=== PATIENT | female | born 2000 | race Caucasian/White ===

== ENCOUNTER 2023-12-14 | Outpatient (REF) | payer MEDICAID, SELFPAY ==
[2023-12-18 23:04] LABS: C. trachomatis RNA TMA NOT DETECTED (NOT DETECTED); N. gonorrhoeae RNA TMA NOT DETECTED (NOT DETECTED); Trichomonas (NAAT) NOT DETECTED (NOT DETECTED)
== END 2023-12-14 00:01 | disposition home or self-care (01) ==
LOC: HO.LNP
PROVIDERS: Visit Provider Advanced Practice Midwife
DX: Z12.4 Encounter for screening for malignant neoplasm of cervix (principal); Z11.3 Encounter for screening for infections with a predominantly sexual mode of transmission
CPT/HCPCS: 87491; 87591; 87661; 88175

== ENCOUNTER 2023-12-14 11:42 | Outpatient (REF) | payer MEDICAID, SELFPAY ==
[2023-12-14 14:12] LABS: Estimated Average Glucose 103 mg/dL; Hemoglobin A1c % 5.2 % (<6.0)
[2023-12-14 14:48] LABS: TSH reflex Free T4 1.38 uIU/mL (0.32-4.0)
[2023-12-15 09:04] LABS: Prolactin 6.5 ng/mL
[2023-12-21 14:09] LABS: Testosterone, Total 53 ng/dL (2-45)
== END 2023-12-14 11:43 | disposition home or self-care (01) ==
LOC: HO.HHCL 11:42
PROVIDERS: Visit Provider Advanced Practice Midwife
DX: N92.6 Irregular menstruation, unspecified (principal); Z83.3 Family history of diabetes mellitus; Z13.1 Encounter for screening for diabetes mellitus
CPT/HCPCS: 36415; 83036; 84146; 84403; 84443

== ENCOUNTER 2024-01-03 10:51 | Outpatient (REF) | payer MEDICAID, SELFPAY ==
--- NOTE | ~2024-01-03 | US_ITS ---
EXAMINATION: US PELVIS CLINICAL INFORMATION: Irregular menses; the last menstrual period was towards the end of 08/2023. COMPARISON: None available. TECHNIQUE: Ultrasound of the pelvis is performed using both transabdominal and transvaginal transducers along with Doppler. Transvaginal imaging is performed due to inadequate visualization transabdominally. FINDINGS: Uterus: The uterus is retroverted and retroflexed. The uterus measures 9.1 x 3.0 x 4.7 cm. The double wall endometrial thickness is 4 mm. Nabothian cysts are seen within the cervix. The uterus is smooth in contour and has normal myometrial echogenicity. No visible fibroid. Adnexa: Both ovaries are visualized. There is normal color flow to the adnexa. There is no ovarian torsion. There is no pelvic ascites or fluid collection. Right ovary measures 3.5 x 2.0 x 1.7 cm, volume 6.2 mL. Left ovary measures 3.5 x 2.2 x 1.6 cm, volume 6.5 mL. US/US pelvic and transvaginal IMPRESSION: Nabothian cysts are seen within the cervix. The examination is otherwise unremarkable.
== END 2024-01-03 10:52 | disposition home or self-care (01) ==
LOC: HO.US 10:51
PROVIDERS: Visit Provider Advanced Practice Midwife
DX: N92.6 Irregular menstruation, unspecified (principal)
CPT/HCPCS: 76830; 76856

== ENCOUNTER 2024-04-22 10:39 | Outpatient (REF) | payer MEDICAID, SELFPAY ==
[2024-04-22 13:12] LABS: Cholesterol 160 mg/dL (<200); HDL Cholesterol 42 mg/dL (>40); LDL Cholesterol Calculated 93 mg/dL (<100); Triglycerides 127 mg/dL (<150)
[2024-04-22 13:16] LABS: HCG Quantitative < 2 mIU/mL
== END 2024-04-22 10:40 | disposition home or self-care (01) ==
LOC: HO.HHCL 10:39
PROVIDERS: Visit Provider Advanced Practice Midwife
DX: Z13.220 Encounter for screening for lipoid disorders (principal); N92.6 Irregular menstruation, unspecified
CPT/HCPCS: 36415; 80061; 84702

== ENCOUNTER 2024-05-21 11:43 | Outpatient (REF) | payer MEDICAID, SELFPAY ==
[2024-05-21 15:12] LABS: HCG Quantitative < 2 mIU/mL
== END 2024-05-21 11:44 | disposition home or self-care (01) ==
LOC: HO.HHCL 11:43
PROVIDERS: Visit Provider Advanced Practice Midwife
DX: N92.6 Irregular menstruation, unspecified (principal)
CPT/HCPCS: 36415; 84702

== ENCOUNTER 2024-07-04 11:08 | Outpatient (REF) | payer MEDICAID, SELFPAY ==
[2024-07-04 13:08] LABS: MANUAL DIFF FLAG NO
[2024-07-04 13:15] LABS: Basophils Percent Auto 0.4 % (0-2); Eosinophils Absolute Auto 0.1 X10*3/uL (0.0-0.4); Eosinophils Percent Auto 0.9 % (0-4); Hematocrit 39.6 % (37.0-47.0); Hemoglobin 13.1 g/dl (12.0-16.0); Imm Gran Abs Auto 0.04 X10*3/uL (0.00-0.03); Imm Gran Pct Auto 0.4 % (0.0-0.4); Lymphocytes Absolute Auto 1.8 X10*3/uL (1.2-4.9); Lymphocytes Percent Auto 18.3 % (20-40); Mean Corpuscular HGB Conc 33.1 g/dl (31.0-35.0); Mean Corpuscular Hemoglobin 28.8 pg (27.0-33.0); Mean Platelet Volume 10.1 fL (9.4-12.3); Monocytes Absolute Auto 0.5 X10*3/uL (0.1-1.2); Monocytes Percent Auto 5.2 % (2-11); Neutrophils Absolute Auto 7.2 x10*3/uL (2.0-8.3); Neutrophils Percent Auto 74.8 % (45-73); Platelet Count 370 X10*3/uL (160-400); Red Blood Count 4.55 X10*6/uL (4.20-5.50); Red Cell Distribution Width 12.3 % (11.0-16.0); White Blood Count 9.6 X10*3/uL (4.8-10.8)
[2024-07-04 13:23] LABS: Estimated Average Glucose 103 mg/dL; Hemoglobin A1C 115.4536 umol/L; Hemoglobin A1c % 5.2 % (<6.0); Total Hemoglobin (HGBA1C) 3431.5205 umol/L
[2024-07-04 13:42] LABS: Alanine Aminotransferase 54 U/L (0-31); Albumin Level 4.3 g/dL (3.5-5.0); Alkaline Phosphatase 79 U/L (39-117); Anion Gap 9 (12-20); Aspartate Amino Transferase 32 U/L (5-31); Bilirubin Total 0.2 mg/dL (0.0-1.0); Blood Urea Nitrogen 11 mg/dL (9-16); Calcium 9.2 mg/dL (8.4-10.2); Carbon Dioxide 27 mmol/L (22-29); Chloride 109 mmol/L (96-108); Estimated Glomerular Filt Rate > 60; Glucose Random 97 mg/dL (60-115); Potassium 4.3 mmol/L (3.3-5.1); Sodium 141 mmol/L (135-145); Total Protein 8.4 g/dL (6.5-8.0)
[2024-07-04 13:47] LABS: TSH reflex Free T4 1.59 uIU/mL (0.32-4.0); Vitamin D 25-OH Total 24.1 ng/mL (>30)
[2024-07-05 04:27] LABS: HIV AB/AG Nonreactive (Nonreactive); HIV Num 1 0.04 S/CO (0.00-0.99); ~HepC Num1 0.11 S/CO (0.00-0.79); ~Hepatitis C Antibody Nonreactive (Nonreactive)
== END 2024-07-04 11:09 | disposition home or self-care (01) ==
LOC: HO.HHCL 11:08
PROVIDERS: Visit Provider Internal Medicine
DX: E66.813 Obesity, class 3 (principal); Z68.43 Body mass index [BMI] 50.0-59.9, adult; E66.01 Morbid (severe) obesity due to excess calories
CPT/HCPCS: 36415; 80053; 82306; 83036; 84443; 85025; 86803; 87389

== ENCOUNTER 2024-07-11 11:59 | Outpatient (REF) | payer MEDICAID, SELFPAY ==
[2024-07-11 14:16] LABS: HBc Num1 0.13 S/CO (0.00-0.79); HBsAGNum1 0.38 S/CO (0.00-0.99); Hepatitis B Core Antibody Nonreactive (Nonreactive); Hepatitis B Surface Antigen Negative (Negative); ~HepC Num1 0.11 S/CO (0.00-0.79); ~Hepatitis A Antibody IgM Nonreactive (Nonreactive); ~Hepatitis B Surface Antibody NONREACTIVE (Nonreactive); ~Hepatitis C Antibody Nonreactive (Nonreactive)
--- OUTSIDE RECORDS SUMMARY | 2024-07-11 14:25 | XMS_ITS | Encounter Summary ---
Author Organization [employer] Address [address] [place] [address] Care Team Providers Care Lawn Mower Mechanic Name Role Phone Karla Lincoln MD Primary Care Provide r Reason for Visit * Reason Onset Date Comments Durable Medical Equipment 07/10/2024 Encounter Details Date Type Department Care Team (Late st Contact Info) Description 07/10/2024 Telephone [facility] [address] [place], [place] [id number] Kyle Stockton MA Durable Medical Equipment Social History Tobacco Use Types Packs/Day Years Used Date Smoking Tobacco: Never Passive Smoke Exposure: Never Smokeless Tobacco: Never Alcohol Use Standard Drinks/Week Comments Never 0 (1 standard drink = 0.6 oz pur e alcohol) Depression Answer Date Recorded Patient Health Questionnaire-9 Score 6 07/04/2024 Patient Health Questionnaire-9 Score 6 07/04/2024 Last PHQ-9: Questionnaire Data Not on file 0 07/04/2024 Housing Stability Answer Date Recorded What is your housing situation today? I have isidrotyrell lemus 07/04/[address] you li ve. Do you have problems with any of the following? None of the above 07/04/2024 Food Insecurity Answer Date Recorded Within the past 12 months, y ou worried that your food would run out before you got money to buy more: Never True 07/04/2024 Within the past 12 months,th e food you bought just didn't last and you didn't have enough money to get more: Never True Transportation Answer Date Recorded In the past 12 months, has l ack of transportation kept you from medical appts, meetings, work or from getting things needed for daily living? No 07/04/2024 Utilities Answer Date Recorded In the past 12 months, has t he electric, gas, oil or water company threatened to shut off services in your home? No 07/04/2024 Depression Answer Date Recorded Patient Health Questionnaire-2 Score 3 07/04/2024 Internet Access Answer Date Recorded Internet Access Q1 Yes 07/04/2024 Internet Access Q2 Not on file 07/04/2024 Comments No Sex and Gender Information Value Date Recorded Sex Assigned at Female 12/07/2023 11:01 AM EDT Legal Sex Female 12:18 PM EDT Gender Identity Female 12/07/2023 11:01 AM EDT Sexual Orientation Don't know 12/07/2023 11 :01 AM EDT documented as of this encounter Miscellaneous Notes * Telephone Encounter - Kyle Stockton MA - 07/10/2024 3:27 PM EST DME- Generated prescription for nebulizer 07/10/2024 , waiting for provider to sign. documented in this encounter Plan of Treatment Not on file documented as of this encounter Visit Diagnoses Not on filedocumented in this encounter Additional Health Concerns Assessment Noted Time PHQ-9 Depression Total Score: 6 07/04/19 10:15 AM EST documented as of this encounter Care Teams Lawn Mower Mechanic Relationship Specialty Start Date End Date Karla Lincoln MD [address] [place] [address] PCP - General Internal Medicine 07/04/24 documented as of this encounter
--- OUTSIDE RECORDS SUMMARY | 2024-07-11 14:25 | XMS_ITS | Encounter Summary ---
Author Organization [employer] Address [address] [place] [address] Care Team Providers Care Music Theory Teacher Name Role Phone Unavailable Primary Care Provider Unavailabl e Reason for Visit * Reason Comments Pre-visit Planning (Unable to reach for PVP screening or LVM) Encounter Details Date Type Department Care Team ([facility] st Contact Info) Description 06/25/2024 Patient Outreach [facility] [address] [place] [address] Karla Lincoln MD [address] [place] [address] Pre-visit Planning ((Unable to reach for PVP screening or LVM)) Social History Tobacco Use Types Packs/Day Years Used Date Smoking Tobacco: Never Smokeless Tobacco: Never Alcohol Use Standard Drinks/Week Comments Never 0 (1 standard drink = 0.6 oz pur e alcohol) Comments No Sex and Gender Information Value Date Recorded Sex Assigned at Female 12/07/2023 11:01 AM EDT Legal Sex Female 12:18 PM EDT Gender Identity Female 12/07/2023 11:01 AM EDT Sexual Orientation Don't know 12/07/2023 11 :01 AM EDT documented as of this encounter Progress Notes * Amie Campbell - 06/25/2024 8:56 AM EST CC Amie placed outbound call to patient to complete pre-visit planning. No answer at this time. Patient name and were not confirmed. CC unable to leave a voice message. documented in this encounter Plan of Treatment Not on file documented as of this encounter Visit Diagnoses Not on filedocumented in this encounter
--- OUTSIDE RECORDS SUMMARY | 2024-07-11 14:25 | XMS_ITS | Encounter Summary ---
Author Organization [employer] Address [address] [place] [address] Care Team Providers Care Salesperson Furniture Name Role Phone Karla Lincoln MD Primary Care Provide r Encounter Details Date Type Department Care Team (Late st Contact Info) Description 01/08/2024 Orders Only [facility] [address] [place] [address] Tereza Bowen CNM [address] [place] [address] Social History Tobacco Use Types Packs/Day Years Used Date Smoking Tobacco: Never Smokeless Tobacco: Never Comments No Sex and Gender Information Value Date Recorded Sex Assigned at Female 12/07/2023 11:01 AM EDT Legal Sex Female 12:18 PM EDT Gender Identity Female 12/07/2023 11:01 AM EDT Sexual Orientation Don't know 12/07/2023 11 :01 AM EDT documented as of this encounter Plan of Treatment Not on file documented as of this encounter Visit Diagnoses Not on filedocumented in this encounter Care Teams Salesperson Furniture Relationship Specialty Start Date End Date Karla Lincoln MD [address] [place] [address] PCP - General Internal Medicine 07/04/24 documented as of this encounter
--- OUTSIDE RECORDS SUMMARY | 2024-07-11 14:25 | XMS_ITS | Encounter Summary ---
Author Organization [employer] Address [address] [place] [address] Care Team Providers Care Vending Service Technician Name Role Phone Karla Lincoln MD Primary Care Provide r Reason for Visit * Reason Onset Date Comments Results 07/04/2024 Encounter Details Date Type Department Care Team (Late st Contact Info) Description 07/04/2024 Telephone [facility] [address] [place] [address] Robyn Rosario RN [address] [place] [address] Results Social History Tobacco Use Types Packs/Day Years [...] is your housing situation today? I have isidro lemus 07/04/[address] you [...] encounter Miscellaneous Notes * Telephone Encounter - Robyn Rosario RN - 07/04/2024 4:21 PM EST TC placed to patient via [employer] (Fili #[id number]) in regards to below message. Patient advised of below message and did not have further questions. Patient advised she will receive another call once results are received for the hepatitis panel. Patient to f/u PRN. ----- Message from Karla Mckinney MD sent at 07/04/2024 4:09 PM EST ----- Please let patient know I reviewed her labs her LFTS are slightly elevated I will order hepatitis panel but is likely fatty liver, I will continue to monitor, her vitamin d is a little low she can take over the counter vitamin d 1000U this winter and then she can discontinue when spring comes thankyou documented in this encounter Plan of Treatment Not on file documented as of this encounter Visit Diagnoses Not on filedocumented in this encounter Additional Health Concerns Assessment Noted Time PHQ-9 Depression Total Score: 6 07/04/19 25 10:15 AM EST documented as of this encounter Care Teams Vending Service Technician Relationship Specialty Start Date End Date Karla Lincoln MD [address] [place] [address] PCP - General Internal Medicine 07/04/24 documented as of this encounter
--- OUTSIDE RECORDS SUMMARY | 2024-07-11 14:25 | XMS_ITS | Encounter Summary ---
Author Organization [employer] Address [address] [place] [address] Care Team Providers Care Diet Therapist Name Role Phone Karla Lincoln MD Primary Care Provide r Encounter Details Date Type Department Care Team (Late st Contact Info) Description 07/04/2024 Orders Only [facility] [address] [place] [address] Karla Lincoln MD [address] [place] [address] Elevated LFTs (Primary Dx) Social History Tobacco Use Types Packs/Day Years [...] on file documented as of this encounter Procedures Procedure Name Priority Date/Time Associated Diagnosis Comments HEPATITIS PANEL, GENERAL Routine 07/11/2024 12:00 PM EST Elevated LFTs documented in this encounter Results * Hepatitis A,B,C Profile (07/11/2024 12:00 PM EST) Hepatitis A IgM Nonreactive Nonreactive [facility] Comment:IgM antibodies to [place] V not detected; does not exclude earlyacute or recovered HAV infection. ~Hepatitis B Surface Antibody NONREACTIVE Nonreactive [facility] Comment:Nonreactive: < 8.00 mIU/mL Hepatitis B Core Antibody Nonreactive Nonreactive [facility] Hepatitis C Antibody Nonreactive Nonreactive [facility] Comment:Antibodies to HCV no t detected; does not exclude early acuteHCV infection. Hepatitis B Surface Ag Negative Negative [facility] Blood Venous blood specimen / Unknown 07/11/2024 12:00 PM EST 07/11/2024 1:22 PM EST us Karla Mckinney MD LAB BLOOD ORDERABLES Final Result [facility] [address] [place] [address] [phone] documented in this encounter Visit Diagnoses Diagnosis Elevated LFTs- Primary Other abnormal blood chemistry documented in this encounter Additional Health Concerns Assessment Noted Time PHQ-9 Depression Total Score: 6 07/04/19 25 10:15 AM EST documented as of this encounter Care Teams Diet Therapist Relationship Specialty Start Date End Date Karla Lincoln MD [address] [place] [address] PCP - General Internal Medicine 07/04/24 documented as of this encounter
--- OUTSIDE RECORDS SUMMARY | 2024-07-11 14:25 | XMS_ITS | Encounter Summary ---
Author Organization [employer] Address [address] [facility] 7t [place] [address] Care Team Providers Care Milking System Installer Name Role Phone Karla Lincoln MD Primary Care Provide r Reason for Referral * Consultation (Routine) - Closed Specialty Diagnoses / Procedures Referred By Michele cook Referred To Contact Bariatrics Diagnoses Class 3 severe obesity due to excess calories without serious comorbidity with body mass index (BMI) of 50.0 to 59.9 in adult ([facility]) Karla Lincoln MD [address] [place] [phone] Phone: tel: fax: Referral ID Status Reason Start Date Expiration Date V isits Requested Visits Authorized [id number] Closed Specialty Services Required 07/04/2024 07/04/2025 1 1 Encounter Details Date Type Department Care Team (Late st Contact Info) Description 07/04/2024 10:15 AM EST Office Visit [facility] MEDICINE [address] [place] [phone] Karla Lincoln MD [address] [place] [phone] Mild intermittent asthma, unspecified whether complicated (Primary Dx); Dietary counseling; Exercise counseling; Class 3 severe obesity due to excess calories without serious comorbidity with body mass index (BMI) of 50.0 to 59.9 in adult ([facility]); Screening examination for STI; Encounter for immunization Social History Tobacco Use Types Packs/Day Years Used Date Smoking Tobacco: Never Passive Smoke Exposure: Never Smokeless Tobacco: Never Tobacco Cessation:Counseling Given: Not Answered Alcohol Use Standard Drinks/Week Comments Never 0 [...] AM EDT documented as of this encounter Last Filed Vital Signs Vital Sign Reading Time Taken Comments Blood Pressure 110/86 07/04/2024 10:13 AM EST Pulse 98 07/04/2024 10:13 AM EST Temperature 36.7 ??C (98.1 ??F) 07/04/2024 10:[address] Respiratory Rate 17 07/04/2024 10:13 AM EST Oxygen Saturation - - Inhaled Oxygen Concentration - - Weight 132 kg (291 lb 4 oz) 07/04/2024 10:13 AM EST Height 154.9 cm (5' 1 ) 07/04/2024 10:13 AM EST Body Mass Index 55.03 07/04/2024 10:13 AM EST documented in this encounter Progress Notes * Karla Mckinney MD - 07/04/2024 10:15 AM EST SUBJECTIVE: Saniya De Souza is a 24 y.o. year old female who presents for New patient . Concerns for today's visit: Occupation:at home Lives with:with partner and father in law - EtOH denies - smoking cigarettes denies - recreational drug use denies Diet:regular Exercise:sedentary LMP: irregular 05/07/24 Surgeries/Hospitalizations:none PMHx:asthma FMHx:Mother HTN, her brother Chron's disease Immunizations: Reviewed flu vaccine today Acute Concerns: Patient reports her asthma is intermittent but when she has exacerbations sometimes its really bad and inhaler is not enough, she tells me nebulization does help in that case Social History Social History Narrative Not on file Patient Active Problem List Diagnosis Mild intermittent asthma Class 3 severe obesity due to excess calories without serious comorbidity with body mass index (BMI) of 50.0 to 59.9 in adult ([facility]) Family History Problem Relation Name Age of Onset Diabetes Maternal Grandmother Diabetes Paternal Grandmother Review of Systems Constitutional: Negative. HENT: Negative. Respiratory: Negative. Cardiovascular: Negative. OBJECTIVE: Vitals: 07/04/24 1013 BP: 110/86 BP Location: Left arm Patient Position: Sitting BP Cuff Size: Large adult Pulse: 98 Resp: 17 Temp: 98.1 ??F (36.7 ??C) TempSrc: Oral Weight: 291 lb 4 oz (132 kg) Height: 5' 1 (1.549 m) Physical Exam Constitutional: Appearance: Normal appearance. Cardiovascular: Rate and Rhythm: Normal rate and regular rhythm. Pulmonary: Effort: Pulmonary effort is normal. Breath sounds: Normal breath sounds. Abdominal: General: Abdomen is flat. Palpations: Abdomen is soft. Musculoskeletal: Right lower leg: No edema. Left lower leg: No edema. Neurological: Mental Status: She is alert. Follow Up: Follow up in about 6 months (around 01/01/2025) for asthma/weight . Current Outpatient Medications on File Prior to Visit Medication Sig Dispense Refill Vit-Fe Fumarate-FA ( Plus) 27-1 MG tablet One tablet by mouth daily 30 tablet 11 medroxyPROGESTERone (Provera) 5 MG tablet Take 1 tablet (5 mg) by mouth Once per day for 7 days. Report if no menses by 7th day after last pill 7 tablet 0 No current facility-administered medications on file prior to visit. Problem List Items Addressed This Visit Mild intermittent asthma - Primary Patient educated to avoid asthma triggers I will prescribe for patient nebulizer Relevant Medications albuterol 108 (90 Base) MCG/ACT inhaler Class 3 severe obesity due to excess calories without serious comorbidity with body mass index (BMI) of 50.0 to 59.9 in adult ([facility]) Today extensive discussion was done about life style modifications I advise healthy diet (low calorie) and cardiovascular exercise Patient will be refer to bariatric specialist Relevant Orders Referral to Bariatric Surgery CBC auto differential Comprehensive Metabolic Panel Hemoglobin A1c HIV-1/2 Antigen and Antibodies, Fourth Generation, with Reflexes Hepatitis C Antibody with Reflex to HCV, RNA, Quantitative, Real-Time PCR Vitamin D, 25-Hydroxy, Total, Immunoassay TSH with Reflex to Free T4 Other Visit Diagnoses Dietary counseling Exercise counseling Screening examination for STI Relevant Orders Chlamydia/N. Gonorrhoeae RNA, TMA, Urogenitial Encounter for immunization Relevant Orders FLU VACCINE TRIVALENT (Fluarix) 6 mo + (Completed) documented in this encounter Miscellaneous Notes * Assessment & Plan Note - Karla Mckinney MD - 07/04/2024 1:02 PM EST Associated Problem(s): Class 3 severe obesity due to excess calories without serious comorbidity with body mass index (BMI) of 50.0 to 59.9 in adult ([facility]) Today extensive discussion was done about life style modifications I advise healthy diet (low calorie) and cardiovascular exercise Patient will be refer to bariatric specialist * Assessment & Plan Note - Karla Mckinney MD - 07/04/2024 1:01 PM EST Associated Problem(s): Mild intermittent asthma Patient educated to avoid asthma triggers I will prescribe for patient nebulizer documented in this encounter Plan of Treatment Scheduled Orders Name Type Priority Associated Diagnoses Orde r Schedule Chlamydia/N. Gonorrhoeae RNA, TMA, Urogenitial Microbiology Routine Screening examination for STI Ordered: 07/04/2024 Scheduled Referrals Name Type Priority Associated Diagnoses Orde r Schedule Referral to Bariatric Surgery Outpatient Referral Routine Class 3 severe obesity due to excess calories without serious comorbidity with body mass index (BMI) of 50.0 to 59.9 in adult ([facility]) Expected: 07/04/2024 (Approximate), Expires: 07/04/2025 documented as of this encounter Procedures Procedure Name Priority Date/Time Associated Diagnosis Comments VITAMIN D,25-OH,TOTAL,IA Routine 07/04/2024 11:11 AM EST Class 3 severe obesity due to excess calories without serious comorbidity with body mass index (BMI) of 50.0 to 59.9 in adult ([facility]) TSH W/REFLEX TO FT4 Routine 07/04/2024 1 1:11 AM EST Class 3 severe obesity due to excess calories without serious comorbidity with body mass index (BMI) of 50.0 to 59.9 in adult ([facility]) CBC WITH AUTO DIFFERENTIAL Routine 07/04/2024 11:11 AM EST Class 3 severe obesity due to excess calories without serious comorbidity with body mass index (BMI) of 50.0 to 59.9 in adult ([facility]) HEPATITIS C AB W/REFL TO HCV RNA, QN, PCR Routine 07/04/2024 11:11 AM EST Class 3 severe obesity due to excess calories without serious comorbidity with body mass index (BMI) of 50.0 to 59.9 in adult ([facility]) HIV 1/2 ANTIGEN/ANTIBODY, FOURTH GENERATION W/RFL Routine 07/04/2024 11:11 AM EST Class 3 severe obesity due to excess calories without serious comorbidity with body mass index (BMI) of 50.0 to 59.9 in adult ([facility]) HEMOGLOBIN A1C Routine 07/04/2024 11:11 AM EST Class 3 severe obesity due to excess calories without serious comorbidity with body mass index (BMI) of 50.0 to 59.9 in adult ([facility]) COMPREHENSIVE METABOLIC PANEL Routine 07/04/2024 11:11 AM EST Class 3 severe obesity due to excess calories without serious comorbidity with body mass index (BMI) of 50.0 to 59.9 in adult ([facility]) documented in this encounter Results * TSH with Reflex to Free T4 (07/04/2024 11:11 AM EST) TSH reflex Free T4 1.59 0.32 - 4.0 uIU/mL [facility] Blood Venous blood specimen / Unknown 07/04/2024 11:11 AM EST 07/04/2024 1:03 PM EST us Karla Mckinney MD LAB BLOOD ORDERABLES Final Result [facility] [address] [place] [phone] * (ABNORMAL) Vitamin D, 25-Hydroxy, Total, Immunoassay (07/04/2024 11:11 AM EST) Vitamin D 25-OH Total 24.1(L) >30 ng/mL [facility] Comment:Health Based Referen ce Values*< 20 ng/mL Weuyydskc62-69 ng/mL Insufficient> 30 ng/mL Sufficient*Jennifer WOODARD. N Engl J Med. 2007;357:266-280Care must be taken in interpreting Vitamin D results fromdifferent laboratories and methodologies. Published datademonstrated that results from patients undergoinghemodialysis may show a negative bias when tested withvarious automated 25-OH vitamin D assays when compared toLC-MS/MS.When testing samples from patients whose predominant form ofVitamin D is Vitamin D2, such as patients receiving VitaminD2 supplementation, results that are subtherapeutic shouldbe confirmed with another method such as LC-MS/MS. Blood Venous blood specimen / Unknown 07/04/2024 11:11 AM EST 07/04/2024 1:03 PM EST Karla Mckinney MD LAB BLOOD ORDERABLES Final Result Performing Organization Address [facility] Co de Phone Number [facility] [address] [place] [phone] * Hepatitis C Antibody with Reflex to HCV, RNA, Quantitative, Real-Time PCR (07/04/2024 11:11 AM EST) Pathologist [facility] Hepatitis C Antibody Nonreactive Nonreactive [facility] Comment:Antibodies to HCV no t detected; does not exclude early acuteHCV infection. Blood Venous blood specimen / Unknown 07/04/2024 11:11 AM EST 07/04/2024 1:03 PM EST Karla Mckinney MD LAB BLOOD ORDERABLES Final Result Performing Organization Address [facility] de Phone Number [facility] [address] [place] [phone] * HIV-1/2 Antigen and Antibodies, Fourth Generation, with Reflexes (07/04/2024 11:11 AM EST) Pathologist [facility] HIV AB/AG Nonreactive Nonreactive [facility] Comment:HIV-1 p24 Ag and/or HIV-1/HIV-2 Ab not detected.A test result that is nonreactive does not exclude thepossibility of exposure to or infection with HIV-1 and/orHIV-2. Nonreactive results in this assay for individualswith prior exposure to HIV-1 and/or HIV-2 may be due toantigen and antibody levels that are below the limit ofdetection of this assay.The [employer] HIV Ag/Ab Combo assay result andsupplemental assay results should be interpreted inconjunction with the patient's clinical presentation,history and other laboratory results. If the results areinconsistent with clinical evidence, additional testing issuggested to confirm the result. Blood Venous blood specimen / Unknown 07/04/2024 11:11 AM EST 07/04/2024 1:03 PM EST Karla Mckinney MD LAB BLOOD ORDERABLES Final Result Performing Organization Address [facility] Co de Phone Number [facility] [address] [place] [phone] * Hemoglobin A1c (07/04/2024 11:11 AM EST) Hemoglobin A1c 5.2 <6.0 % [facility] Comment:Hemoglobin A1C Refer ence Range Adults: 4.8 - 6.0 % Non diabetic: < 6.0 % Goal: < 7.0 %Additional Action Suggested: > 8.0 %Note: Hemoglobin A1c results are invalid for patients with abnormal amounts of HbF. Blood transfusions may impact the HbA1c concentration in the patient sample. Estimated Average Glucose 103 mg/dL [facility] Comment:eAG = Estimated ave rage glucose which is %A1C expressed asaverage glucose, using the formula of the V1O-SzwhoxjBavyzjq Glucose study (ADAG), Diabetes Care, Vol.31,#8,Jan. 2007 Blood Venous blood specimen / Unknown 07/04/2024 11:11 AM EST 07/04/2024 1:03 PM EST us Karla Mckinney MD LAB BLOOD ORDERABLES Final Result Performing Organization Address [facility] Co de Phone Number [facility] [address] [place] [phone] * (ABNORMAL) Comprehensive Metabolic Panel (07/04/2024 11:11 AM EST) Sodium 141 135 - 145 mmol/L [facility] Potassium 4.3 3.3 - 5.1 mmol/L [facility] Chloride 109(H) 96 - 108 mmol/L [facility] Carbon Dioxide 27 22 - 29 mmol/L [facility] Anion Gap 9(L) 12 - 20 [facility] Urea Nitrogen (BUN) 11 9 - 16 mg/dL [facility] Creatinine, Serum 0.73 0.5 - 1.4 mg/dL [facility] Estimated Glomerular Filt Rate >60 [facility] Comment:Chronic Kidney Disea se: Estimated GFR < 60 mL/min/[id number] Kidney Disease: Estimated GFR < 15 mL/min/1.73m2 Glucose 97 60 - 115 mg/dL [facility] Calcium 9.2 8.4 - 10.2 mg/dL [facility] Bilirubin, Total 0.2 0.0 - 1.0 mg/dL [facility] Aspartate Amino Transferase 32(H) 5 - 31 U/L [facility] Alanine Aminotransferase 54(H) 0 - 31 U/L [facility] Total Protein 8.4(H) 6.5 - 8.0 g/dL [facility] Albumin Level 4.3 3.5 - 5.0 g/dL [facility] Alkaline Phosphatase 79 39 - 117 U/L [facility] Blood Venous blood specimen / Unknown 07/04/2024 11:11 AM EST 07/04/2024 1:03 PM EST us Karla Mckinney MD LAB BLOOD ORDERABLES Final Result [facility] [address] [place] [phone] * (ABNORMAL) CBC auto differential (07/04/2024 11:11 AM EST) White Blood Count 9.6 4.8 - 10.8 X10*3/uL [facility] Red Blood Count 4.55 4.20 - 5.50 X10*6/uL [facility] Hemoglobin 13.1 12.0 - 16.0 g/dl [facility] Hematocrit 39.6 37.0 - 47.0 % [facility] Mean Corpuscular Volume 87.0 80.0 - 98.0 fL [facility] Mean Corpuscular Hemoglobin 28.8 27.0 - 33.0 pg [facility] Mean Corpuscular HGB Conc 33.1 31.0 - 35.0 g/dl [facility] Red Cell Distribution Width 12.3 11.0 - 16.0 % [facility] Platelet Count 370 160 - 400 X10*3/uL [facility] Mean Platelet Volume 10.1 9.4 - 12.3 fL [facility] Neutrophils Percent Auto 74.8(H) 45 - 73 % [facility] Imm Gran Pct Auto 0.4 0.0 - 0.4 % [facility] Lymphocytes Percent Auto 18.3(L) 20 - 40 % [facility] Monocytes Percent Auto 5.2 2 - 11 % [facility] Eosinophils Percent Auto 0.9 0 - 4 % [facility] Basophils Percent Auto 0.4 0 - 2 % [facility] NRBC Pct Auto 0.0 0.0 - 0.2 /100WBC [facility] Neutrophils Absolute Auto 7.2 2.0 - 8.3 x10*3/uL [facility] Imm Gran Abs Auto 0.04(H) 0.00 - 0.03 X10*3/uL [facility] Lymphocytes Absolute Auto 1.8 1.2 - 4.9 X10*3/uL [facility] Monocytes Absolute Auto 0.5 0.1 - 1.2 X10*3/uL [facility] Eosinophils Absolute Auto 0.1 0.0 - 0.4 X10*3/uL [facility] Basophils Absolute Auto 0.0 0.0 - 0.2 X10*3/uL [facility] NRBC Abs Auto 0.000 0.0 - 0.012 X10*3/uL [facility] Blood Venous blood specimen / Unknown 07/04/2024 11:11 AM EST 07/04/2024 1:03 PM EST Karla Mckinney MD LAB BLOOD ORDERABLES Final Result [facility] [address] [place] [phone] documented in this encounter Visit Diagnoses Diagnosis Mild intermittent asthma, unspecified whether complicated- Primary Dietary counseling Dietary surveillance and counseling Exercise counseling Class 3 severe obesity due to excess calories without serious comorbidity with body mass index (BMI) of 50.0 to 59.9 in adult ([facility]) Screening examination for STI Encounter for immunization documented in this encounter Additional Health Concerns Assessment Noted Time PHQ-9 Depression Total Score: 6 07/04/19 25 10:15 AM EST documented as of this encounter Care Teams Milking System Installer Relationship Specialty Start Date End Date Karla Lincoln MD [address] [place] [phone] PCP - General Internal Medicine 07/04/24 documented as of this encounter
--- OUTSIDE RECORDS SUMMARY | 2024-07-11 14:25 | XMS_ITS | Encounter Summary ---
Author Organization [employer] Address [address] [facility] [address] [place] [address] Care Team Providers Care Piercing Mill Operator Name Role Phone Karla Lincoln MD Primary Care Provide r Encounter Details Date Type Department Care Team (Latest Contact Info) Description 07/04/2024 Travel Social History Tobacco Use Types Packs/Day Years [...] documented as of this encounter Care Teams Piercing Mill Operator Relationship Specialty Start Date End Date Karla Lincoln MD [address] [place] [address] PCP - General Internal Medicine 07/04/24 documented as of this encounter
== END 2024-07-11 12:00 | disposition home or self-care (01) ==
LOC: HO.HHCL 11:59
PROVIDERS: Visit Provider Internal Medicine
DX: R79.89 Other specified abnormal findings of blood chemistry (principal)
CPT/HCPCS: 36415; 86704; 86706; 86709; 86803; 87340

== ENCOUNTER 2024-07-25 08:03 | Outpatient (AMB) | payer MEDICAID, SELFPAY ==
--- OUTSIDE RECORDS SUMMARY | 2024-07-25 08:05 | XMS_ITS | Encounter Summary ---
Author Organization [email or web address] Address [address] [facility] [address] [place] [address] Care Team Providers Care Insurance Special Agent Name Role Phone Unavailable Primary Care Provider Unavailabl e Reason for Visit * Reason Comments Pre-visit Planning (Unable to reach for PVP screening or LVM) Encounter Details Date Type Department Care Team ([facility] st Contact Info) Description 06/25/2024 Patient Outreach [facility] [address] [place] [address] Karla Lincoln MD [address] [place] [phone] Pre-visit Planning ((Unable to reach for PVP [...]
--- OUTSIDE RECORDS SUMMARY | 2024-07-25 08:05 | XMS_ITS | Encounter Summary ---
Author Organization [employer] Address [address] [facility] 7t [place] [address] Care Team Providers Care Order Planner Name Role Phone Karla Lincoln MD Primary Care Provide r Encounter Details Date Type Department Care Team (Late st Contact Info) Description 01/08/2024 Orders Only [facility] MED[facility]INE [address] [place] [address] Tereza Bowen CNM [address] [place] [address] Social History Tobacco Use Types Packs/Day Years [...] on filedocumented in this encounter Care Teams Order Planner Relationship Specialty Start Date End Date Karla Lincoln MD [address] [place] [address] PCP - General Internal Medicine 07/04/24 documented as of this encounter
--- OUTSIDE RECORDS SUMMARY | 2024-07-25 08:05 | XMS_ITS | Encounter Summary ---
Author Organization [employer] Address [address] [facility] [address] [place] [address] Care Team Providers Care Engineering Administrator Name Role Phone Karla Lincoln MD Primary [...] documented as of this encounter Care Teams Engineering Administrator Relationship Specialty Start Date End Date Karla Lincoln MD [address] [place] [address] PCP - General Internal Medicine 07/04/24 documented as of this encounter
--- OUTSIDE RECORDS SUMMARY | 2024-07-25 08:05 | XMS_ITS | Encounter Summary ---
Author Organization [employer] Address [address] [place] [address] Care Team Providers Care Machine Cloth Measurer Name Role Phone Karla Lincoln MD Primary Care Provide r Encounter Details Date Type Department Care Team ([facility] st Contact Info) Description 07/04/2024 Orders Only [facility] [address] [place] [address] Karla Lincoln MD [address] [place] [address] Elevated LFTs (Primary Dx) Social History Tobacco [...] PM EST) Hepatitis A IgM Nonreactive Nonreactive [facility] Comment:IgM antibodies to [place] V not detected; does not exclude earlyacute or recovered HAV infection. ~Hepatitis B Surface Antibody NONREACTIVE Nonreactive [facility] Comment:Nonreactive: < 8.00 mIU/mL Hepatitis B Core Antibody Nonreactive Nonreactive [facility] Hepatitis C Antibody Nonreactive Nonreactive [facility] Comment:Antibodies to HCV no t detected; does not exclude early acuteHCV infection. Hepatitis B Surface Ag Negative Negative [facility] Blood Venous blood specimen / Unknown 07/11/2024 12:00 PM EST 07/11/2024 1:22 PM EST us Karla Mckinney MD LAB BLOOD ORDERABLES Final Result [facility] [address] [place] [phone] documented in this encounter Visit Diagnoses Diagnosis Elevated LFTs- Primary Other abnormal blood chemistry documented in this encounter Additional Health Concerns Assessment Noted Time PHQ-9 Depression Total Score: 6 07/04/19 25 10:15 AM EST documented as of this encounter Care Teams Machine Cloth Measurer Relationship Specialty Start Date End Date Karla Lincoln MD [address] [place] [address] PCP - General Internal Medicine 07/04/24 documented as of this encounter
--- OUTSIDE RECORDS SUMMARY | 2024-07-25 08:05 | XMS_ITS | Encounter Summary ---
Author Organization [employer] Address [address] [facility] [address] [place] [address] Care Team Providers Care Tax Credit Leasing Consultant Name Role Phone Karla Lincoln MD Primary Care Provide r Reason for Referral * Consultation (Routine) - Closed Specialty Diagnoses / Procedures Referred By Michele cook Referred To Contact Bariatrics Diagnoses Class 3 severe obesity due to excess calories without serious comorbidity with body mass index (BMI) of 50.0 to 59.9 in adult ([facility]) Karla Lincoln MD [address] [place] [phone] Phone: tel: fax: Referral ID Status Reason Start Date Expiration Date V isits Requested Visits Authorized [id number] Closed Specialty Services Required 07/04/2024 07/04/2025 1 1 Encounter Details Date Type Department Care Team (Late st Contact Info) Description 07/04/2024 10:15 AM EST Office Visit [facility] [address] [place] [phone] Karla Lincoln MD [address] [place] [phone] Mild intermittent asthma, unspecified whether complicated (Primary Dx); Dietary counseling; Exercise counseling; Class 3 severe obesity due to excess calories without serious comorbidity with body mass index (BMI) of 50.0 to 59.9 in adult ([facility]); Screening examination for STI; Encounter for immunization [...] (BMI) of 50.0 to 59.9 in adult ([facility]) Family History Problem Relation Name Age of [...] (BMI) of 50.0 to 59.9 in adult ([facility]) Today extensive discussion was done about life [...] (BMI) of 50.0 to 59.9 in adult ([facility]) Today extensive discussion was done about life style modifications I advise healthy diet (low calorie) and cardiovascular exercise Patient will be refer to bariatric specialist * Assessment & Plan Note - Krala Mckinney MD - 07/04/2024 1:01 PM EST [...] (BMI) of 50.0 to 59.9 in adult ([facility]) Expected: 07/04/2024 (Approximate), Expires: 07/04/2025 documented as of this encounter Procedures Procedure Name Priority Date/Time Associated Diagnosis Comments VITAMIN D,25-OH,TOTAL,IA Routine 07/04/2024 11:11 AM EST Class 3 severe obesity due to excess calories without serious comorbidity with body mass index (BMI) of 50.0 to 59.9 in adult ([facility]) TSH W/REFLEX TO FT4 Routine 07/04/2024 1 1:11 AM EST Class 3 severe obesity due to excess calories without serious comorbidity with body mass index (BMI) of 50.0 to 59.9 in adult ([facility]) CBC WITH AUTO DIFFERENTIAL Routine 07/04/2024 11:11 AM EST Class 3 severe obesity due to excess calories without serious comorbidity with body mass index (BMI) of 50.0 to 59.9 in adult ([facility]) HEPATITIS C AB W/REFL TO HCV RNA, QN, PCR Routine 07/04/2024 11:11 AM EST Class 3 severe obesity due to excess calories without serious comorbidity with body mass index (BMI) of 50.0 to 59.9 in adult ([facility]) HIV 1/2 ANTIGEN/ANTIBODY, FOURTH GENERATION W/RFL Routine 07/04/2024 11:11 AM EST Class 3 severe obesity due to excess calories without serious comorbidity with body mass index (BMI) of 50.0 to 59.9 in adult ([facility]) HEMOGLOBIN A1C Routine 07/04/2024 11:11 AM EST Class 3 severe obesity due to excess calories without serious comorbidity with body mass index (BMI) of 50.0 to 59.9 in adult ([facility]) COMPREHENSIVE METABOLIC PANEL Routine 07/04/2024 11:11 AM EST Class 3 severe obesity due to excess calories without serious comorbidity with body mass index (BMI) of 50.0 to 59.9 in adult ([facility]) documented in this encounter Results * TSH with Reflex to Free T4 (07/04/2024 11:11 AM EST) TSH reflex Free T4 1.59 0.32 - 4.0 uIU/mL [facility] Blood Venous blood specimen / Unknown 07/04/2024 11:11 AM EST 07/04/2024 1:03 PM EST us Karla Mckinney MD LAB BLOOD ORDERABLES Final Result [facility] [address] [place] [phone] * (ABNORMAL) Vitamin D, 25-Hydroxy, Total, Immunoassay (07/04/2024 11:11 AM EST) Vitamin D 25-OH Total 24.1(L) >30 ng/mL [facility] Comment:Health Based Referen ce Values*< 20 ng/mL [id number] ng/mL Insufficient> 30 ng/mL Sufficient*Jennifer WOODARD. N [...] BLOOD ORDERABLES Final Result Performing Organization Address [facility] [employer] Phone Number [facility] [address] [place] [phone] * Hepatitis C Antibody with Reflex to HCV, RNA, Quantitative, Real-Time PCR (07/04/2024 11:11 AM EST) Pathologist [facility] Hepatitis C Antibody Nonreactive Nonreactive [facility] Comment:Antibodies to HCV no t detected; does not exclude early acuteHCV infection. Blood Venous blood specimen / Unknown 07/04/2024 11:11 AM EST 07/04/2024 1:03 PM EST Karla Mckinney MD LAB BLOOD ORDERABLES Final Result Performing Organization Address [facility] de Phone Number [facility] [address] [place] [phone] * HIV-1/2 Antigen and Antibodies, Fourth Generation, with Reflexes (07/04/2024 11:11 AM EST) Pathologist [facility] HIV AB/AG Nonreactive Nonreactive [facility] Comment:HIV-1 p24 Ag and/or HIV-1/HIV-2 Ab not detected.A test result that is nonreactive does not exclude thepossibility of exposure to or infection with HIV-1 and/orHIV-2. Nonreactive results in this assay for individualswith prior exposure to HIV-1 and/or HIV-2 may be due toantigen and antibody levels that are below the limit ofdetection of this assay.The [place] HIV Ag/Ab Combo assay result andsupplemental assay results should be interpreted inconjunction with the patient's clinical presentation,history and other laboratory results. If the results areinconsistent with clinical evidence, additional testing issuggested to confirm the result. Blood Venous blood specimen / Unknown 07/04/2024 11:11 AM EST 07/04/2024 1:03 PM EST Karla Mckinney MD LAB BLOOD ORDERABLES Final Result Performing Organization Address [facility] [employer] de Phone Number [facility] [address] [place] [phone] * Hemoglobin A1c (07/04/2024 11:11 AM EST) Hemoglobin A1c 5.2 <6.0 % [facility] Comment:Hemoglobin A1C Refer ence Range Adults: 4.8 - 6.0 % Non diabetic: < 6.0 % Goal: < 7.0 %Additional Action Suggested: > 8.0 %Note: Hemoglobin A1c results are invalid for patients with abnormal amounts of HbF. Blood transfusions may impact the HbA1c concentration in the patient sample. Estimated Average Glucose 103 mg/dL [facility] Comment:eAG = Estimated ave rage glucose which is %A1C expressed asaverage glucose, using the formula of the P3C-KotizdbVnsrlhv Glucose study (ADAG), Diabetes Care, Vol.31,#8,Jan. 2007 Blood Venous blood specimen / Unknown 07/04/2024 11:11 AM EST 07/04/2024 1:03 PM EST us Karla Mckinney MD LAB BLOOD ORDERABLES Final Result Performing Organization Address [facility] [employer] de Phone Number [facility] [address] [place] [phone] * (ABNORMAL) Comprehensive Metabolic Panel (07/04/2024 11:11 AM EST) Sodium 141 135 - 145 mmol/L [facility] Potassium 4.3 3.3 - 5.1 mmol/L [facility] Chloride 109(H) 96 - 108 mmol/L [facility] Carbon Dioxide 27 22 - 29 mmol/L [facility] Anion Gap 9(L) 12 - 20 [facility] Urea Nitrogen (BUN) 11 9 - 16 mg/dL [facility] Creatinine, Serum 0.73 0.5 - 1.4 mg/dL [facility] Estimated Glomerular Filt Rate >60 [facility] Comment:Chronic Kidney Disea se: Estimated GFR < 60 mL/min/1.58f0Ecnzbh Kidney Disease: Estimated GFR < 15 mL/min/1.73m2 Glucose 97 60 - 115 mg/dL [facility] Calcium 9.2 8.4 - 10.2 mg/dL [facility] Bilirubin, Total 0.2 0.0 - 1.0 mg/dL [facility] Aspartate Amino Transferase 32(H) 5 - 31 U/L [facility] Alanine Aminotransferase 54(H) 0 - 31 U/L [facility] Total Protein 8.4(H) 6.5 - 8.0 g/dL [facility] Albumin Level 4.3 3.5 - 5.0 g/dL [facility] Alkaline Phosphatase 79 39 - 117 U/L [facility] Blood Venous blood specimen / Unknown 07/04/2024 11:11 AM EST 07/04/2024 1:03 PM EST us Karla Mckinney MD LAB BLOOD ORDERABLES Final Result [facility] [address] [place] [phone] * (ABNORMAL) CBC auto differential (07/04/2024 11:11 AM EST) White Blood Count 9.6 4.8 - 10.8 X10*3/uL [facility] Red Blood Count 4.55 4.20 - 5.50 X10*6/uL [facility] Hemoglobin 13.1 12.0 - 16.0 g/dl [facility] Hematocrit 39.6 37.0 - 47.0 % [facility] Mean Corpuscular Volume 87.0 80.0 - 98.0 fL [facility] Mean Corpuscular Hemoglobin 28.8 27.0 - 33.0 pg [facility] Mean Corpuscular HGB Conc 33.1 31.0 - 35.0 g/dl [facility] Red Cell Distribution Width 12.3 11.0 - 16.0 % [facility] Platelet Count 370 160 - 400 X10*3/uL [facility] Mean Platelet Volume 10.1 9.4 - 12.3 fL [facility] Neutrophils Percent Auto 74.8(H) 45 - 73 % [facility] Imm Gran Pct Auto 0.4 0.0 - 0.4 % [facility] Lymphocytes Percent Auto 18.3(L) 20 - 40 % [facility] Monocytes Percent Auto 5.2 2 - 11 % [facility] Eosinophils Percent Auto 0.9 0 - 4 % [facility] Basophils Percent Auto 0.4 0 - 2 % [facility] NRBC Pct Auto 0.0 0.0 - 0.2 /100WBC [facility] Neutrophils Absolute Auto 7.2 2.0 - 8.3 x10*3/uL [facility] Imm Gran Abs Auto 0.04(H) 0.00 - 0.03 X10*3/uL [facility] Lymphocytes Absolute Auto 1.8 1.2 - 4.9 X10*3/uL [facility] Monocytes Absolute Auto 0.5 0.1 - 1.2 X10*3/uL [facility] Eosinophils Absolute Auto 0.1 0.0 - 0.4 X10*3/uL [facility] Basophils Absolute Auto 0.0 0.0 - 0.2 X10*3/uL [facility] NRBC Abs Auto 0.000 0.0 - 0.012 X10*3/uL [facility] Blood Venous blood specimen / Unknown 07/04/2024 11:11 AM EST 07/04/2024 1:03 PM EST Karla Mckinney MD LAB BLOOD ORDERABLES Final Result [facility] [address] [place] [phone] documented in this encounter Visit Diagnoses Diagnosis Mild intermittent asthma, unspecified whether complicated- Primary Dietary counseling Dietary surveillance and counseling Exercise counseling Class 3 severe obesity due to excess calories without serious comorbidity with body mass index (BMI) of 50.0 to 59.9 in adult ([facility]) Screening examination for STI Encounter for immunization documented in this encounter Additional Health Concerns Assessment Noted Time PHQ-9 Depression Total Score: 6 07/04/19 25 10:15 AM EST documented as of this encounter Care Teams Tax Credit Leasing Consultant Relationship Specialty Start Date End Date Karla Lincoln MD [address] [place] [phone] PCP - General Internal Medicine 07/04/24 documented as of this encounter
--- OUTSIDE RECORDS SUMMARY | 2024-07-25 08:05 | XMS_ITS | Encounter Summary ---
Author Organization [employer] Address [address] [place] [address] Care Team Providers Care 4 H Youth Development Specialist Name Role Phone Karla Lincoln MD Primary Care Provide r Reason for Visit * Reason Onset Date Comments Durable Medical Equipment 07/10/2024 Encounter Details Date Type Department Care Team (Late st Contact Info) Description 07/10/2024 Telephone [facility] [address] [place], [place] [phone] Kyle Stockton [place] Durable Medical Equipment Social [...] nebulizer 07/10/2024 , waiting for provider to sign.Signed scanned and fax to [facility] on 07/11/2024. documented in this encounter Plan of Treatment Not on file documented as of this encounter Visit Diagnoses Not on filedocumented in this encounter Additional Health Concerns Assessment Noted Time PHQ-9 Depression Total Score: 6 07/04/19 25 10:15 AM EST documented as of this encounter Care Teams 4 H Youth Development Specialist Relationship Specialty Start Date End Date Karla Lincoln MD [address] [place] [phone] PCP - General Internal Medicine 07/04/24 documented as of this encounter
--- OUTSIDE RECORDS SUMMARY | 2024-07-25 08:05 | XMS_ITS | Encounter Summary ---
Author Organization [employer] Address [address] [place] [address] Care Team Providers Care Oven Equipment Repairer Name Role Phone Karla Lincoln MD Primary Care Provide r Reason for Visit * Reason Onset Date Comments Results 07/04/2024 Encounter Details Date Type Department Care Team (Late st Contact Info) Description 07/04/2024 Telephone [facility] [address] [place] [address] Robyn Rosario RN [address] [place] [phone] Results Social History Tobacco Use Types Packs/Day [...] PM EST TC placed to patient via [employer] (Fili #[id number]) in regards to below message. Patient advised [...] documented as of this encounter Care Teams Oven Equipment Repairer Relationship Specialty Start Date End Date Karla Lincoln MD [address] [place] [phone] PCP - General Internal Medicine 07/04/24 documented as of this encounter
--- OUTSIDE RECORDS SUMMARY | 2024-07-25 08:06 | XMS_ITS | Clinical Summary ---
Author Organization [employer] Address [address] [place] [address] Care Team Providers Care Utility Engineer Name Role Phone Karla Lincoln MD Primary Care Provide r Allergies No known active allergies Medications Vit-Fe Fumarate-FA ( Plus) 27-1 MG tablet One tablet by mouth daily 30 tablet 11 12/14/2023 Active medroxyPROGESTERo ne (Provera) 5 MG tablet Take 1 tablet (5 mg) by mouth Once per day for 7 days. Report if no menses by 7th day after last pill 7 tablet 05/21/2024 Active albuterol 108 (90 Base) MCG/ACT inhalerIndication s:Mild intermittent asthma, unspecified whether complicated Inhale 2 puffs every 6 (six) hours if needed for wheezing. 18 g 1 07/04/2024 07/04/19 26 Active Active Problems Problem Noted Date Diagnosed Date Mild intermittent asthma 07/04/2024 Assessment & Plan (07/04/2024 1:01 PM EST): Patient educated to avoid asthma triggers I will prescribe for patient nebulizer Class 3 severe obesity due t o excess calories without serious comorbidity with body mass index (BMI) of 50.0 to 59.9 in adult 07/04/2024 Assessment & Plan (07/04/2024 1:02 PM EST): Today extensive discussion was done about life style modifications I advise healthy diet (low calorie) and cardiovascular exercise Patient will be refer to bariatric specialist Encounters Date Type Department Care Team Description 07/10/2024 Telephone [facility] MEDICINE [address] [place] [address] Kyle Stockton [place] Durable Medical Equipment 07/04/2024 10:15 AM EST Office Visit [facility] [address] Karla Lincoln MD Mild intermittent asthma, unspecified whether complicated (Primary Dx); Dietary counseling; Exercise counseling; Class 3 severe obesity due to excess calories without serious comorbidity with body mass index (BMI) of 50.0 to 59.9 in adult (CMS/[facility]); Screening examination for STI; Encounter for immunization 07/04/2024 Telephone [place] [address] Robyn Rosario, RN Results 07/04/2024 Orders Only [facility] [address] Karla Lincoln MD Elevated LFTs (Primary Dx) 07/04/2024 Travel 06/25/2024 Patient Outreach [facility] [address] Karla Lincoln MD Pre-visit Planning ((Unable to reach for PVP screening or LVM)) 05/22/2024 Telephone [place] [address] Fartun Garza, RN Results 05/21/2024 11:00 AM EST Office Visit [facility] [address] Tereza Bowen CNM Irregular menses (Primary Dx) 05/21/2024 Orders Only [facility] [place] [address] Tereza Bowen CNM 05/21/2024 Travel 05/20/2024 Travel 05/20/2024 Telephone [facility] [place] [address] Mo Martinez MD Appointment Request from Last 3 Months Immunizations Name Administration Dates Next Due Influenza, seasonal, injectable, preservative fr ee 07/04/2024 Family History Medical History Relation Name Comments Diabetes Maternal Grandmother Diabetes Paternal Grandmother Relation Name Status Comments Maternal Grandmother Paternal Grandmother Social History Tobacco Use Types Packs/Day Years [...] Don't know 12/07/2023 11 :01 AM EDT Last Filed Vital Signs Vital Sign Reading Time Taken Comments Blood Pressure 110/86 07/04/2024 10:13 AM EST Pulse 98 07/04/2024 10:13 AM EST Temperature 36.7 ??C (98.1 ??F) 07/04/2024 10:[address] Respiratory Rate 17 07/04/2024 10:13 AM EST Oxygen Saturation 98% 05/21/2024 11:21 AM EST Inhaled Oxygen Concentration - - Weight 132 kg (291 lb 4 oz) 07/04/2024 10:13 AM EST Height 154.9 cm (5' 1 ) 07/04/2024 10:13 AM EST Body Mass Index 55.03 07/04/2024 10:13 AM EST Plan of Treatment Health Maintenance Due Date Last Done Comments Chlamydia and Gonorrhea Screening 2001 HPV Vaccines (1 - 3-dose series) 2016 DTaP/Tdap/Td Vaccines (1 - Tdap) 2020 Hepatitis B Vaccines (1 of 3 - 19+ 3-dose series) 2020 Pneumococcal Vaccine: Pediatrics (0 to 5 Years) and At-Risk Patients (6 to 49) Years) (1 of 2 - PCV) 2020 COVID-19 Vaccine ( - 2023-2 5 season) 2024 Family Planning (PISQ) 05/21/2025 05/21/2024 Alcohol/Substance Use Screening 07/04/2025 07/04/2024 Depression Screening 07/04/2025 07/04/2024, 07/04/2024 SDOH Screening 07/04/2025 07/04/2024 Tobacco Screening 07/04/2025 07/04/2024 Pap Smear 12/13/2026 12/14/2023 Lipid Panel 04/22/2029 04/22/2024 Zoster Vaccines (1 of 2) 2051 RSV Patients and Patients Aged 60 years or older (1 - 1-dose 75+ series) 2076 HIV Screening Completed 07/04/2024 Influenza Vaccine Completed 07/04/2024 Hepatitis C Screening Completed 07/11/2024 , 07/04/2024 HIB Vaccines Aged Out No longer eligi ble based on patient's age to complete this topic Hepatitis A Vaccines Aged Out No long er eligible based on patient's age to complete this topic IPV Vaccines Aged Out No longer eligi ble based on patient's age to complete this topic Meningococcal Vaccine Aged Out No rafiq salvatore eligible based on patient's age to complete this topic RSV under 20 months Aged Out No longe r eligible based on patient's age to complete this topic Rotavirus Vaccines Aged Out No longer eligible based on patient's age to complete this topic Procedures Procedure Name Priority Date/Time Associated Diagnosis Comments HEPATITIS PANEL, GENERAL Routine 07/11/2024 12:00 PM EST Elevated LFTs TSH W/REFLEX TO FT4 Routine 07/04/2024 1 1:11 AM EST Class 3 severe obesity due to excess calories without serious comorbidity with body mass index (BMI) of 50.0 to 59.9 in adult (CMS/HCC) VITAMIN D,25-OH,TOTAL,IA Routine 07/04/2024 11:11 AM EST Class 3 severe obesity due to excess calories without serious comorbidity with body mass index (BMI) of 50.0 to 59.9 in adult (CMS/HCC) HEPATITIS C AB W/REFL TO HCV RNA, QN, PCR Routine 07/04/2024 11:11 AM EST Class 3 severe obesity due to excess calories without serious comorbidity with body mass index (BMI) of 50.0 to 59.9 in adult (CMS/HCC) HIV 1/2 ANTIGEN/ANTIBODY, FOURTH GENERATION W/RFL Routine 07/04/2024 11:11 AM EST Class 3 severe obesity due to excess calories without serious comorbidity with body mass index (BMI) of 50.0 to 59.9 in adult (CMS/HCC) HEMOGLOBIN A1C Routine 07/04/2024 11:11 AM EST Class 3 severe obesity due to excess calories without serious comorbidity with body mass index (BMI) of 50.0 to 59.9 in adult (CMS/HCC) COMPREHENSIVE METABOLIC PANEL Routine 07/04/2024 11:11 AM EST Class 3 severe obesity due to excess calories without serious comorbidity with body mass index (BMI) of 50.0 to 59.9 in adult (CMS/HCC) CBC WITH AUTO DIFFERENTIAL Routine 07/04/2024 11:11 AM EST Class 3 severe obesity due to excess calories without serious comorbidity with body mass index (BMI) of 50.0 to 59.9 in adult (CMS/HCC) HCG, TOTAL, QN Routine 05/21/2024 11:45 AM EST Irregular menses LIPID PANEL, STANDARD Routine 04/22/2024 10:42 AM EST Encounter for screening for lipid disorder THINPREP IMAGING SYSTEM PAP Routine 12/14/2023 11:00 AM EDT from Last 3 Months or Most Recently Relevant to Health Maintenance Results * Hepatitis A,B,C Profile (07/11/2024 12:00 PM EST) Hepatitis A IgM Nonreactive Nonreactive [facility] Comment:IgM antibodies to [place] V not detected; does not exclude earlyacute or recovered HAV infection. ~Hepatitis B Surface Antibody NONREACTIVE Nonreactive [facility] Comment:Nonreactive: < 8.00 mIU/mL Hepatitis B Core Antibody Nonreactive Nonreactive [facility] Hepatitis C Antibody Nonreactive Nonreactive [facility] Comment:Antibodies to HCV no t detected; does not exclude early acuteHCV infection. Hepatitis B Surface Ag Negative Negative [facility] Blood Venous blood specimen / Unknown 07/11/2024 12:00 PM EST 07/11/2024 1:22 PM EST us Karla Mckinney MD LAB BLOOD ORDERABLES Final Result [facility] [address] [place] [phone] * (ABNORMAL) Vitamin D, 25-Hydroxy, Total, Immunoassay (07/04/2024 11:11 AM EST) Vitamin D 25-OH Total 24.1(L) >30 ng/mL [facility] Comment:Health Based Referen ce Values*< 20 ng/mL Uiuhizxeu98-14 ng/mL Insufficient> 30 ng/mL Sufficient*Jennifer WOODARD. N [...] BLOOD ORDERABLES Final Result Performing Organization Address [facility]/ZIP Co de Phone Number [facility] [address] [place] [phone] * TSH with Reflex to Free T4 (07/04/2024 11:11 AM EST) Pathologist [facility] TSH reflex Free T4 1.59 0.32 - 4.0 uIU/mL [facility] Blood Venous blood specimen / Unknown 07/04/2024 11:11 AM EST 07/04/2024 1:03 PM EST us Karla Mckinney MD LAB BLOOD ORDERABLES Final Result Performing Organization Address [facility] Co de Phone Number [facility] [address] [place] [phone] * (ABNORMAL) CBC auto differential (07/04/2024 11:11 AM EST) White Blood Count 9.6 4.8 - 10.8 X10*3/uL [facility] Red Blood Count 4.55 4.20 - 5.50 X10*6/uL [facility] Hemoglobin 13.1 12.0 - 16.0 g/dl [facility] Hematocrit 39.6 37.0 - 47.0 % [facility] Mean Corpuscular Volume 87.0 80.0 - 98.0 fL [facility] Mean Corpuscular Hemoglobin 28.8 27.0 - 33.0 pg [facility] Mean Corpuscular HGB Conc 33.1 31.0 - 35.0 g/dl [facility] Red Cell Distribution Width 12.3 11.0 - 16.0 % [facility] Platelet Count 370 160 - 400 X10*3/uL [facility] Mean Platelet Volume 10.1 9.4 - 12.3 fL [facility] Neutrophils Percent Auto 74.8(H) 45 - 73 % [facility] Imm Gran Pct Auto 0.4 0.0 - 0.4 % [facility] Lymphocytes Percent Auto 18.3(L) 20 - 40 % [facility] Monocytes Percent Auto 5.2 2 - 11 % [facility] Eosinophils Percent Auto 0.9 0 - 4 % [facility] Basophils Percent Auto 0.4 0 - 2 % [facility] NRBC Pct Auto 0.0 0.0 - 0.2 /100WBC [facility] Neutrophils Absolute Auto 7.2 2.0 - 8.3 x10*3/uL [facility] Imm Gran Abs Auto 0.04(H) 0.00 - 0.03 X10*3/uL [facility] Lymphocytes Absolute Auto 1.8 1.2 - 4.9 X10*3/uL [facility] Monocytes Absolute Auto 0.5 0.1 - 1.2 X10*3/uL [facility] Eosinophils Absolute Auto 0.1 0.0 - 0.4 X10*3/uL [facility] Basophils Absolute Auto 0.0 0.0 - 0.2 X10*3/uL [facility] NRBC Abs Auto 0.000 0.0 - 0.012 X10*3/uL [facility] Blood Venous blood specimen / Unknown 07/04/2024 11:11 AM EST 07/04/2024 1:03 PM EST us Karla Mckinney MD LAB BLOOD ORDERABLES Final Result [facility] [address] [place] [phone] * Hepatitis C Antibody with Reflex to HCV, RNA, Quantitative, Real-Time PCR (07/04/2024 11:11 AM EST) Hepatitis C Antibody Nonreactive Nonreactive [facility] Comment:Antibodies to HCV no t detected; does not exclude early acuteHCV infection. Blood Venous blood specimen / Unknown 07/04/2024 11:11 AM EST 07/04/2024 1:03 PM EST us Karla Mckinney MD LAB BLOOD ORDERABLES Final Result Performing Organization Address [facility] Co de Phone Number [facility] [address] [place] [phone] * HIV-1/2 Antigen and Antibodies, Fourth Generation, with Reflexes (07/04/2024 11:11 AM EST) Pathologist [facility] HIV AB/AG Nonreactive Nonreactive [facility] Comment:HIV-1 p24 Ag and/or HIV-1/HIV-2 Ab not detected.A test result that is nonreactive does not exclude thepossibility of exposure to or infection with HIV-1 and/orHIV-2. Nonreactive results in this assay for individualswith prior exposure to HIV-1 and/or HIV-2 may be due toantigen and antibody levels that are below the limit ofdetection of this assay.The [employer] HIV Ag/Ab Combo assay result andsupplemental assay results should be interpreted inconjunction with the patient's clinical presentation,history and other laboratory results. If the results areinconsistent with clinical evidence, additional testing issuggested to confirm the result. Blood Venous blood specimen / Unknown 07/04/2024 11:11 AM EST 07/04/2024 1:03 PM EST us Karla Mckinney MD LAB BLOOD ORDERABLES Final Result Performing Organization Address [facility]/ZIP Co de Phone Number [facility] [address] [place] [phone] * Hemoglobin A1c (07/04/2024 11:11 AM EST) Hemoglobin A1c 5.2 <6.0 % [facility] Comment:Hemoglobin A1C Refer ence Range Adults: 4.8 - 6.0 % Non diabetic: < 6.0 % Goal: < 7.0 %Additional Action Suggested: > 8.0 %Note: Hemoglobin A1c results are invalid for patients with abnormal amounts of HbF. Blood transfusions may impact the HbA1c concentration in the patient sample. Estimated Average Glucose 103 mg/dL [facility] Comment:eAG = Estimated ave rage glucose which is %A1C expressed asaverage glucose, using the formula of the R8U-RjuyuquYnndsah Glucose study (ADAG), Diabetes Care, Vol.31,#8,Jan. 2007 Blood Venous blood specimen / Unknown 07/04/2024 11:11 AM EST 07/04/2024 1:03 PM EST us Karla Mckinney MD LAB BLOOD ORDERABLES Final Result [facility] [address] [place] [phone] * (ABNORMAL) Comprehensive Metabolic Panel (07/04/2024 11:11 AM EST) Pathologist [facility] Sodium 141 135 - 145 mmol/L [facility] Potassium 4.3 3.3 - 5.1 mmol/L [facility] Chloride 109(H) 96 - 108 mmol/L [facility] Carbon Dioxide 27 22 - 29 mmol/L [facility] Anion Gap 9(L) 12 - 20 [facility] Urea Nitrogen (BUN) 11 9 - 16 mg/dL [facility] Creatinine, Serum 0.73 0.5 - 1.4 mg/dL [facility] Estimated Glomerular Filt Rate >60 [facility] Comment:Chronic Kidney Disea se: Estimated GFR < 60 mL/min/1.40s7Xtjzed Kidney Disease: Estimated GFR < 15 mL/min/1.73m2 Glucose 97 60 - 115 mg/dL [facility] Calcium 9.2 8.4 - 10.2 mg/dL [facility] Bilirubin, Total 0.2 0.0 - 1.0 mg/dL [facility] Aspartate Amino Transferase 32(H) 5 - 31 U/L [facility] Alanine Aminotransferase 54(H) 0 - 31 U/L [facility] Total Protein 8.4(H) 6.5 - 8.0 g/dL [facility] Albumin Level 4.3 3.5 - 5.0 g/dL [facility] Alkaline Phosphatase 79 39 - 117 U/L [facility] Blood Venous blood specimen / Unknown 07/04/2024 11:11 AM EST 07/04/2024 1:03 PM EST Karla Mckinney MD LAB BLOOD ORDERABLES Final Result Performing Organization Address City/State/[facility] Co de Phone Number [facility] [address] [place] [phone] * hCG, Total, Quantitative (05/21/2024 11:45 AM EST) HCG Quantitative <2 mIU/mL [facility] Comment:Weeks post LMP Appro ximate hCG(Last Menstrual Period) Range (mIU/ml)3 - 4 weeks 9 - 1304 - 5 weeks 75 - 2,6005 - 6 weeks 850 - 20,8006 - 7 weeks 4000 - 100,2007 - 12 weeks 11,500 - 289,16015 - 16 weeks 18,300 - 137,72260 - 29 weeks (2nd trimester) 1,400 - 53,01299 - 41 weeks (3rd trimester) 940 - 60,000The Hawley B- hCG assay is used for the early detection ofpregnancy; it cannot be used to diagnose any conditionunrelated to . If a B-hCG level is not supportedby the clinical evidence, results should be confirmed by analternative method (qualitative urine hCG, for example). Blood Venous blood specimen / Unknown 05/21/2024 11:45 AM EST 05/21/2024 2:31 PM EST Tereza Jessi [facility] LAB BLOOD ORDERABLES Glo l Result Performing Organization Address [facility] Co de Phone Number [facility] [address] [place] [phone] * Lipid Panel, Standard (04/22/2024 10:42 AM EST) Triglycerides 127 <150 mg/dL [facility] Comment:Desirable Triglyceri de: less than 150 mg/dLBorderline High Triglyceride 150-199 mg/dLHigh Triglyceride: 200-499 mg/dLVery High Triglyceride: greater than or equal to 5OO mg/dL Cholesterol 160 <200 mg/dL [facility] Comment:Desirable Cholestero l: less than 200 mg/dLBorderline High Cholesterol: 200-239 mg/dLHigh Cholesterol: greater than 239 mg/dL LDL Cholesterol Calculated 93 <100 mg/dL [facility] Comment:Desirable LDL: less than 100 mg/dLNear Optimal/Above Optimal LDL: 110- 129 mg/dLBorderline High LDL: 130-159 mg/dLHigh LDL: 160-189 mg/dLVery High LDL: greater than or equal to 190 mg/dL HDL Cholesterol 42 >40 mg/dL [facility] Comment:Desirable HDL: great er than 40 mg/dL Note: This HDL assay may give artificially low results in patients with liver disease. Blood Venous blood specimen / Unknown 04/22/2024 10:42 AM EST 04/22/2024 11:19 AM EST Tereza Bowen [facility] LAB BLOOD ORDERABLES Glo l Result Performing Organization Address [facility]/ZIP Co de Phone Number [facility] [address] [place] [phone] * ThinPrep Imaging System Pap (12/14/2023 11:00 AM EDT) SOURCE: SEE NOTE [facility] Comment:Cervix Report Status: TNP [facility] Clinical Information: SEE NOTE [facility] Comment:None given LMP: SEE NOTE [facility] Comment:NONE GIVEN Prev. PAP: SEE NOTE [facility] Comment:GN Prev. BX: SEE NOTE [facility] Comment:NONE GIVEN Statement Of Adequacy: SEE NOTE [facility] Comment:Satisfactory for clifton luation.Endocervical/transformation zone component absent. General Categorization: [facility] Interpretation/Result: SEE NOTE [facility] Comment:Cytology Results: Ne gative for intraepitheliallesion or malignancy. Cytology Comment SEE NOTE [facility] Comment:This Pap test has be en evaluated with computerassisted technology. Welding Instructor: SEE NOTE [facility] Comment:CMB, CT(ASCP) CT Scr eening Location: [facility] [address] preparation performed at: [address], [address] [place] [id number] CLIA No. [id number] Review Welding Instructor: [facility] Pathologist [facility] PAP Infection [facility] See Note SEE NOTE [facility] Comment:EXPLANATORY NOTE:The Pap is a screening test for cervical cancer. It isnot a diagnostic test and is subject to false negativeand false positive results. It is most reliable when asatisfactory sample, regularly obtained, is submittedwith relevant clinical findings and history, and whenthe Pap result is evaluated along with historic andcurrent clinical information.THIS TEST WAS PERFORMED AT:[facility] [address] [id number] MERATI,MD 12/14/2023 11:0 0 AM EDT 12/15/2023 11:40 AM EDT Narrative [facility] - 12/20/2023 12:03 PM EDT SEE EMR FOR SCANNED REPORTSCREENINGCERVICALINITIAL Tereza Bowen CNM LAB PATHOLOGY ORDERABLES Final Result [facility] [address] [place] [phone] from Last 3 Months or Most Recently Relevant to Health Maintenance Insurance [facility] C3 Care Teams Utility Engineer Relationship Specialty Start Date End Date Karla Lincoln MD [address] [place] [phone] PCP - General Internal Medicine 07/04/24
--- NOTE | 2024-07-25 10:48 | MHC.OFFVISWM ---
VS Expanded 07/25/24 11:02 Height 5 ft 1 in Weight 291 lb 4 oz BMI 55.0 Body Fat % 52.2 Body Fat Mass 151.8 Fat Free Mass 139.4 Visceral Fat Rating 18 Body Water % 34.4 Body Water Mass 100.4 Basal Metabolic Rate/Score 2,081 Intake Visit Reasons: TV [employer] WORK[employer] SWL BMI 55.1 *PUBLIC HEALTH* Production Support Developer Required: Yes Production Support Developer Services: Production Support Developer Present Information Interpreted: clinical only Allergies No Known Allergies Allergy (Verified 07/25/24 10:49) Medication List - Last Reconciled 07/25/24 by Arsalan Ibarra MD albuterol sulfate 90 mcg/actuation (Ventolin HFA) 2 puffs inhalation Q6H PRN PNV,calcium [id number] acid 27 mg iron- 1 mg ( Vitamins Plus Low Iron) 1 tab PO DAILY HPI 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 *PUBLIC HEALTH*: Details: Start time: 10.26am, End time: 11.26am ?I spent 15 minutes speaking with the patient on the phone plus an additional 5 minutes reviewing and updating records for a total of 20 minutes HPI Comments Details: Previous weight loss: self diets and exercise Wakes up: 9am, Sleeps: 12am Breakfast: occasionally 11am (bread, cheese, scrambled eggs) Lunch: 3pm (rice, chicken) Dinner: skips Snacks: 2 snacks after lunch (corn flakes, cereal) Exercise: none Fluids: Coffee: 1 cup/d (sugar and milk), tea: none, soda: Coca cola 2-3/d, juice: Crystal light, ETOH: none PFSH Medical History (Updated 07/25/24 @ 10:53 by Arsalan Ibarra MD) Asthma Morbid obesity Surgical History (Updated 07/15/24 @ 10:51 by Nisha Gonzales CMA) No history of previous surgery Family History (Updated 07/15/24 @ 10:52 by Nisha Gonzales CMA) Mother Arthritis Father No problems noted. Social History (Updated 07/15/24 @ 10:51 by Nisha Gonzales CMA) Alcohol intake: never Patient Tobacco Use Status: Never used Tobacco Telehealth Telehealth Telehealth Platform: Telephone Location of provider rendering services: practice address Location of patient: address on file Patient Identification confirmed using: Name, : Yes Telehealth method: voice only Patient verbally consented to treatment: Yes Patient verbally consented to billing insurance company: Yes Patient informed of any privacy concerns related to visit: Yes Minutes spent on Phone/Video with Pt.: 60 Assessment & Plan Assessment & Plan (1) Morbid obesity: Code(s): E66.01 - Morbid (severe) obesity due to excess calories Category: Medical Plan: 1.? Plan for lap sleeve gastrectomy. If diaphragmatic or ventral hernias are present at time of surgery, these will be repaired laparoscopically as well. I emphasized the importance of close follow-up, adherence to instructions and good communication. The surgery does not replace the need to change your lifestlyle which is the cause of the obesity problem. The surgery provides the motivation to try again to change your lifestyle, it reduces the appetite and make the transition to a better lifestyle easier and doubles the amount of weight you would lose compared to doing the lifestyle change without the surgery. You will need to be on a liquid diet with protein shakes for 2 weeks before surgery to maximize weight loss and boost your nutritional status to recover better from surgery and also for the first two weeks after surgery to let the stomach heal before we introduce other foods. After the first 2 weeks we will introduce protein bars and soft foods like scrambled eggs, cottage cheese and yogurt and after the 6th week will introduce meat, fish and cooked vegetables in small amounts. Over time you should be able to eat everything in small amounts. Side effects like nausea, vomiting, heartburn or abdominal pain are not common in the practice unless you are not following in the practice. This operation requires lifetime commitment to following in our practice and communication with me. You will much less weight and experience side effects if you don?t communicate or not following in the practice. Complications are rare and in our practice is about 1/10 of the national average. However, you can develop bleeding that may require transfusion (hasn?t happened for year in the practice), you may from complications (we did not have any deaths in the practice) and infections. Infections are usually a result of breakdown in communication or not understanding or following directions correctly. They are difficult to treat, they can happen during the first 6 weeks, they may require to be in the hospital for weeks or even months, not being able to eat by mouth and you may have drains and surgeries to try and correct the issue. Other risks and complications include possible conversion to an open procedure, leaks, small bowel obstruction, blood clots, cardiac, or pulmonary complications, as halfway complications such as ulcers, insufficient weight loss and vitamin deficiencies. 2. Nutritional counseling. Start with 2 CELEBRATE REBUILD protein (buy at [facility] [employer] [facility]) shakes (TWO scoop EACH in 12oz low fat unsweetened almond milk each) at 10am-12pm and 1pm-3pm, 1 protein bar (CELEBRATE protein bars, buy at [facility] [employer]) at 4pm-6pm, dinner at 7pm (10 forks of protein and 10 forks of salad/vegetables) AND one more protein bar after dinner at 9pm-11pm. So you do 2 protein shakes, 2 protein bars and one meal per day. Meal to include lean meat (beef, fish, pork, turkey, chicken), or swedish yogurt, or egg whites, or beans with a salad with olive oil and fruits (berries, pears, apples, kiwi). Avoid salt, breads, potatoes, rice, pasta, desserts. 3. Each shake would be drunk slowly, like coffee in a period of 2 hours. 4. Cut each bar in 4 pieces and eat each piece in 30min ?to make each bar last 2 hours. 5. I emphasized the importance of measuring accurately the food portion and measure it when serving the food in plate 6. The meal portions include 10 full-size forks of meat and 10 full-size forks of salad. You always eat the meat portion but you can replace up to 5 forks for salad/vegetables with rice, potatoes or pasta, or a fruit ?if you like. The less you do it the better weight loss will be. 7. One full-size fork is what it can be scooped on the fork without falling aside and not what can be bit with the fork. Use regular forks like those you find in a typical restaurant. 8.? Please buy the body composition scale we discussed and send me weight measurements as soon as possible and then once a week. Always include your diet and exercise plan. 9. Start walking outside daily, tracking calories with a goal of 300 calories per day, daily. Goal is to burn 2000 calories per week on exercise, which means either 300 calories daily, or 400 calories 5 days per week, or 500 calories 4 days per week, or 650 calories 3 days per week. 10. The best choice would be to purchase a stationary bike at home that can track calories. Let me know if you do so I can give you an exercise plan. 11.?It is important of avoiding and for at least 18 months postoperatively and has been discussed at the infosession. 12. Goal is to lose at least 1.5-2lbs per week 13. Goal to lose 10% of your weight before surgery, which is about 31lbs. Ultimate weight goal: 260lbs before surgery 14. Please follow the diet plan exactly without any change. If you don't like something about the plan or you feel hungry you need to communicate with me so I can help you revise the plan. You should not change the plan yourself 15. To be scheduled for EGD to assess the stomach's anatomy. The possibility of biopsies was discussed. Patient needs to avoid use of NSAIDs and aspirin for 1 week prior to EGD. You must be on liquids only the day before your endoscopy. Risks of perforation and bleeding was discussed with the patient. This will be an outpatient procedure with IV sedation. Orders: Orders H Pylori Breath Test Today E66.01 - Morbid (severe) obesity due to excess calories, J45.909 - Unspecified asthma, uncomplicated Complete Blood Count Auto Diff Today E66.01 - Morbid (severe) obesity due to excess calories, J45.909 - Unspecified asthma, uncomplicated Lipid Panel Today E66.01 - Morbid (severe) obesity due to excess calories, J45.909 - Unspecified asthma, uncomplicated Vitamin B1 Today E66.01 - Morbid (severe) obesity due to excess calories, J45.909 - Unspecified asthma, uncomplicated Vitamin A Today E66.01 - Morbid (severe) obesity due to excess calories, J45.909 - Unspecified asthma, uncomplicated Ferritin Today E66.01 - Morbid (severe) obesity due to excess calories, J45.909 - Unspecified asthma, uncomplicated XR chest 2V Today E66.01 - Morbid (severe) obesity due to excess calories, J45.909 - Unspecified asthma, uncomplicated ECG 12 lead EKG Today E66.01 - Morbid (severe) obesity due to excess calories, J45.909 - Unspecified asthma, uncomplicated FL upper GI w air Today E66.01 - Morbid (severe) obesity due to excess calories, J45.909 - Unspecified asthma, uncomplicated Insulin Today E66.01 - Morbid (severe) obesity due to excess calories, J45.909 - Unspecified asthma, uncomplicated Hemoglobin A1c Today E66.01 - Morbid (severe) obesity due to excess calories, J45.909 - Unspecified asthma, uncomplicated IRON PROFILE Today E66.01 - Morbid (severe) obesity due to excess calories, J45.909 - Unspecified asthma, uncomplicated Comprehensive Met. Panel Today E66.01 - Morbid (severe) obesity due to excess calories, J45.909 - Unspecified asthma, uncomplicated Vitamin B12 and Folate Today E66.01 - Morbid (severe) obesity due to excess calories, J45.909 - Unspecified asthma, uncomplicated Zinc Today E66.01 - Morbid (severe) obesity due to excess calories, J45.909 - Unspecified asthma, uncomplicated C Reactive Protein Today E66.01 - Morbid (severe) obesity due to excess calories, J45.909 - Unspecified asthma, uncomplicated TSH reflex Free T4 Today E66.01 - Morbid (severe) obesity due to excess calories, J45.909 - Unspecified asthma, uncomplicated Vitamin D 25-OH Total Today E66.01 - Morbid (severe) obesity due to excess calories, J45.909 - Unspecified asthma, uncomplicated US abdomen comp w elastography Today E66.01 - Morbid (severe) obesity due to excess calories, J45.909 - Unspecified asthma, uncomplicated Referrals Nutrition/Dietitian Referral E66.01 - Morbid (severe) obesity due to excess calories, J45.909 - Unspecified asthma, uncomplicated Behavioral Health Referral E66.01 - Morbid (severe) obesity due to excess calories, J45.909 - Unspecified asthma, uncomplicated
[2024-07-25 11:02] VITALS: BMI 55.0
== END 2024-07-25 11:27 | disposition home or self-care (01) ==
LOC: HO.HBS 08:03
PROVIDERS: PCP Internal Medicine; Visit Provider Surgery
DX: E66.01 Morbid (severe) obesity due to excess calories (principal); E66.813 Obesity, class 3; Z68.43 Body mass index [BMI] 50.0-59.9, adult
CPT/HCPCS: 99204

== ENCOUNTER 2024-10-02 09:04 | Outpatient (REF) | payer MEDICAID, SELFPAY ==
--- NOTE | ~2024-10-02 | XR_ITS ---
EXAMINATION: XR CHEST 2 VIEWS HISTORY: E66.01 - Morbid (severe) obesity due to excess calories COMPARISON: There are no prior studies for comparison. FINDINGS: PA and lateral views of the chest are submitted. The lungs are expanded and clear. There is no pleural effusion, pneumothorax, or pulmonary vascular congestion. The heart is normal in size. The bones are intact. XR/XR chest 2V IMPRESSION: Normal examination of the chest. Electronically signed by: Juan A Mckeon MD 10/02/2024 03:17 PM EDT
[2024-10-02 09:26] LABS: MANUAL DIFF FLAG NO
--- NOTE | 2024-10-02 09:33 | ECG_ITS ---
Test Reason : e66.01 Blood Pressure : */* mmHG Vent. Rate : 87 BPM Atrial Rate : 87 BPM P-R Int : 134 ms QRS Dur : 72 ms QT Int : 376 ms P-R-T Axes : 25 39 10 degrees QTcB Int : 452 ms Normal sinus rhythm with sinus arrhythmia Normal ECG No previous ECGs available Referred By: Arsalan Ibarra Electronically Signed By: FLEX CANCHOLA MD
--- OUTSIDE RECORDS SUMMARY | 2024-10-02 09:49 | XMS_ITS | Encounter Summary ---
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 Tender Name Role Phone Karla Lincoln MD Primary Care Provide r Encounter Details Date Type Department Care Team (Late Contact Info) Description 01/08/2024 Orders Only [facility] [address] [place] [id number] Tereza Bowen CNM [address] [place] [address] Social History Tobacco Use Types Packs/Day Years Used Date Smoking Tobacco: Never Smokeless Tobacco: Never Comments No Sex and Gender Information Value Date Recorded Sex Assigned at Female 12/07/2023 11:01 AM EDT Legal Sex Female 12:18 PM EDT Gender Identity Female 12/07/2023 11:01 AM EDT Sexual Orientation Don't know 12/07/2023 11 :01 AM EDT documented as of this encounter Plan of Treatment Upcoming Encounters Date Type Department Care Team (Late Contact Info) Description 01/02/2025 10:45 AM EDT Office Visit [facility] [address] [place] [phone] Karla Lincoln MD [address] [place] [id number] documented as of this encounter Visit Diagnoses Not on filedocumented in this encounter Care Teams Plug Overwrap Machine Tender Relationship Specialty Start Date End Date Karla Lincoln MD [address] [place] [id number] PCP - General Internal Medicine 07/04/24 documented as of this encounter
--- OUTSIDE RECORDS SUMMARY | 2024-10-02 09:49 | XMS_ITS | Clinical Summary ---
Author Organization [employer] Address [address] [place] [address] Care Team Providers Care Distributor Operator Name Role Phone Karla Lincoln MD [...] Encounters Date Type Department Care Team Description 09/12/2024 Telephone [facility] [address] [place] [address] Karla Lincoln MD Call Back Request 09/05/2024 Telephone [facility] [address] [place] [address] Karla Lincoln MD Nurse Triage 08/30/2024 Population Health Risk Score [facility] ([facility]3) Department [address] [place] [address] [phone] Provider, Population Health Generic 07/10/2024 Telephone [facility] [address] [place] [address] Kyle Stockton [place] Durable Medical Equipment 07/04/2024 10:15 AM EST Office Visit [facility] [address] [place] [address] Karla Lincoln MD Mild intermittent asthma, unspecified whether complicated (Primary Dx); Dietary counseling; Exercise counseling; Class 3 severe obesity due to excess calories without serious comorbidity with body mass index (BMI) of 50.0 to 59.9 in adult (CMS/[facility]); Screening examination for STI; Encounter for immunization 07/04/2024 Telephone [facility] [address] [place] [address] Robyn Rosario, RN Results 07/04/2024 Orders Only [facility] [address] [place] [address] Karla Lincoln MD Elevated LFTs (Primary Dx) 07/04/2024 Travel from Last 3 Months Immunizations Name Administration [...] 07/04/2024 10:13 AM EST Plan of Treatment Upcoming Encounters Date Type Department Care Team (Late st Contact Info) Description 01/02/2025 10:45 AM EDT Office Visit [facility] [address] [place] [address] Karla Lincoln MD [address] [place] [address] Health Maintenance Due Date Last Done Comments HPV Vaccines (1 - 3-dose series) 2016 DTaP/Tdap/Td Vaccines (1 - Tdap) 2020 Hepatitis B Vaccines (1 of 3 - 19+ 3-dose series) 2020 Pneumococcal Vaccine: Pediatrics (0 to 5 Years) and At-Risk Patients (6 to 49) Years) (1 of 2 - PCV) 2020 COVID-19 Vaccine ( - 2023-2 5 season) 2024 Chlamydia and Gonorrhea Screening 12/14/2024 12/15/2023 Family Planning (PISQ) 05/21/2025 05/21/2024 Alcohol/Substance Use [...] of 50.0 to 59.9 in adult (CMS/HCC) LIPID PANEL, STANDARD Routine 04/22/2024 10:42 AM EST Encounter for screening for lipid disorder CHLAMYDIA/N. GONORRHOEAE AND T. VAGINALIS RNA, QUAL,TMA Routine 12/15/2023 11:00 AM EDT Routine cervical smear Encntr screen for infections w sexl mode of transmiss THINPREP IMAGING SYSTEM PAP Routine 12/14/2023 11:00 AM EDT from Last 3 Months or Most Recently Relevant to Health Maintenance Results * Hepatitis A,B,C Profile (07/11/2024 12:00 PM EST) Hepatitis A IgM Nonreactive Nonreactive [facility] Comment:IgM antibodies to [place] V not detected; does not exclude earlyacute or recovered HAV infection. ~Hepatitis B Surface Antibody NONREACTIVE Nonreactive [facility] Comment:Nonreactive: < 8.00 mIU/mL Hepatitis B Core Antibody Nonreactive Nonreactive [facility] Hepatitis C Antibody Nonreactive Nonreactive [facility] Comment:Antibodies to HCV no t detected; does not exclude early acuteHCV infection. Hepatitis B Surface Ag Negative Negative [facility] Blood Venous blood specimen / Unknown 07/11/2024 12:00 PM EST 07/11/2024 1:22 PM EST us Karla Mckinney MD LAB BLOOD ORDERABLES Final Result [facility] [address] [place] [phone] * (ABNORMAL) Vitamin D, 25-Hydroxy, Total, Immunoassay (07/04/2024 11:11 AM EST) Vitamin D 25-OH Total 24.1(L) >30 ng/mL [facility] Comment:Health Based Referen ce Values*< 20 ng/mL [id number] ng/mL Insufficient> 30 ng/mL Sufficient*Jennifer [place]. N [...] BLOOD ORDERABLES Final Result Performing Organization Address [facility]/ZIP Co de Phone Number [facility] [address] [place] [phone] * TSH with Reflex to Free T4 (07/04/2024 11:11 AM EST) TSH reflex Free T4 1.59 0.32 - 4.0 uIU/mL [facility] Blood Venous blood specimen / Unknown 07/04/2024 11:11 AM EST 07/04/2024 1:03 PM EST us Karla Mckinney MD LAB BLOOD ORDERABLES Final Result Performing Organization Address [facility]/ZIP Co de Phone Number [facility] [address] [place] [phone] * (ABNORMAL) CBC auto differential (07/04/2024 11:11 AM EST) White Blood Count 9.6 4.8 - 10.8 X10*3/uL [facility] Red Blood Count 4.55 4.20 - 5.50 X10*6/uL [facility] Hemoglobin 13.1 12.0 - 16.0 g/dl [facility] Hematocrit 39.6 37.0 - 47.0 % [facility] Mean Corpuscular Volume 87.0 80.0 - 98.0 fL [facility] Mean Corpuscular Hemoglobin 28.8 27.0 - 33.0 pg [facility] Mean Corpuscular HGB Conc 33.1 31.0 - 35.0 g/dl [facility] Red Cell Distribution Width 12.3 11.0 - 16.0 % [facility] Platelet Count 370 160 - 400 X10*3/uL [facility] Mean Platelet Volume 10.1 9.4 - 12.3 fL [facility] Neutrophils Percent Auto 74.8(H) 45 - 73 % [facility] Imm Gran Pct Auto 0.4 0.0 - 0.4 % [facility] Lymphocytes Percent Auto 18.3(L) 20 - 40 % [facility] Monocytes Percent Auto 5.2 2 - 11 % [facility] Eosinophils Percent Auto 0.9 0 - 4 % [facility] Basophils Percent Auto 0.4 0 - 2 % [facility] NRBC Pct Auto 0.0 0.0 - 0.2 /100WBC [facility] Neutrophils Absolute Auto 7.2 2.0 - 8.3 x10*3/uL [facility] Imm Gran Abs Auto 0.04(H) 0.00 - 0.03 X10*3/uL [facility] Lymphocytes Absolute Auto 1.8 1.2 - 4.9 X10*3/uL [facility] Monocytes Absolute Auto 0.5 0.1 - 1.2 X10*3/uL [facility] Eosinophils Absolute Auto 0.1 0.0 - 0.4 X10*3/uL [facility] Basophils Absolute Auto 0.0 0.0 - 0.2 X10*3/uL [facility] NRBC Abs Auto 0.000 0.0 - 0.012 X10*3/uL [facility] Blood Venous blood specimen / Unknown 07/04/2024 11:11 AM EST 07/04/2024 1:03 PM EST us Karla Mckinney MD LAB BLOOD ORDERABLES Final Result Performing Organization Address [facility] Co de Phone Number [facility] [address] [place] [phone] * Hepatitis C Antibody with Reflex to HCV, RNA, Quantitative, Real-Time PCR (07/04/2024 11:11 AM EST) Hepatitis C Antibody Nonreactive Nonreactive [facility] Comment:Antibodies to HCV no t detected; does not exclude early acuteHCV infection. Blood Venous blood specimen / Unknown 07/04/2024 11:11 AM EST 07/04/2024 1:03 PM EST us Karla Mckinney MD LAB BLOOD ORDERABLES Final Result Performing Organization Address [facility] Co de Phone Number [facility] [address] [place] [phone] * HIV-1/2 Antigen and Antibodies, Fourth Generation, with Reflexes (07/04/2024 11:11 AM EST) HIV AB/AG Nonreactive Nonreactive [facility] Comment:HIV-1 p24 Ag and/or HIV-1/HIV-2 Ab not detected.A test result that is nonreactive does not exclude thepossibility of exposure to or infection with HIV-1 and/orHIV-2. Nonreactive results in this assay for individualswith prior exposure to HIV-1 and/or HIV-2 may be due toantigen and antibody levels that are below the limit ofdetection of this assay.The [facility] HIV Ag/Ab Combo assay result andsupplemental assay results should be interpreted inconjunction with the patient's clinical presentation,history and other laboratory results. If the results areinconsistent with clinical evidence, additional testing issuggested to confirm the result. Blood Venous blood specimen / Unknown 07/04/2024 11:11 AM EST 07/04/2024 1:03 PM EST us Karla Mckinney MD LAB BLOOD ORDERABLES Final Result Performing Organization Address [facility] Co de Phone Number [facility] [address] [place] [phone] * Hemoglobin A1c (07/04/2024 11:11 AM EST) Hemoglobin A1c 5.2 <6.0 % [facility] Comment:Hemoglobin A1C Refer ence Range Adults: 4.8 - 6.0 % Non diabetic: < 6.0 % Goal: < 7.0 %Additional Action Suggested: > 8.0 %Note: Hemoglobin A1c results are invalid for patients with abnormal amounts of HbF. Blood transfusions may impact the HbA1c concentration in the patient sample. Estimated Average Glucose 103 mg/dL [facility] Comment:eAG = Estimated ave rage glucose which is %A1C expressed asaverage glucose, using the formula of the I1E-RmsmpacMbpfary Glucose study (ADAG), Diabetes Care, Vol.31,#8,Jan. 2007 Blood Venous blood specimen / Unknown 07/04/2024 11:11 AM EST 07/04/2024 1:03 PM EST us Karla Mckinney MD LAB BLOOD ORDERABLES Final Result Performing Organization Address [facility] de Phone Number [facility] [address] [place] [phone] * (ABNORMAL) Comprehensive Metabolic Panel (07/04/2024 11:11 AM EST) Sodium 141 135 - 145 mmol/L [facility] Potassium 4.3 3.3 - 5.1 mmol/L [facility] Chloride 109(H) 96 - 108 mmol/L [facility] Carbon Dioxide 27 22 - 29 mmol/L [facility] Anion Gap 9(L) 12 - 20 [facility] Urea Nitrogen (BUN) 11 9 - 16 mg/dL [facility] Creatinine, Serum 0.73 0.5 - 1.4 mg/dL [facility] Estimated Glomerular Filt Rate >60 [facility] Comment:Chronic Kidney Disea se: Estimated GFR < 60 mL/min/1.15e5Bbixic Kidney Disease: Estimated GFR < 15 mL/min/1.73m2 Glucose 97 60 - 115 mg/dL [facility] Calcium 9.2 8.4 - 10.2 mg/dL [facility] Bilirubin, Total 0.2 0.0 - 1.0 mg/dL [facility] Aspartate Amino Transferase 32(H) 5 - 31 U/L [facility] Alanine Aminotransferase 54(H) 0 - 31 U/L [facility] Total Protein 8.4(H) 6.5 - 8.0 g/dL [facility] Albumin Level 4.3 3.5 - 5.0 g/dL [facility] Alkaline Phosphatase 79 39 - 117 U/L [facility] Blood Venous blood specimen / Unknown 07/04/2024 11:11 AM EST 07/04/2024 1:03 PM EST us Karla Mckinney MD LAB BLOOD ORDERABLES Final Result [facility] [address] [place] [address] [phone] * Lipid Panel, Standard (04/22/2024 10:42 AM EST) Triglycerides 127 <150 mg/dL [facility] Comment:Desirable Triglyceri de: less than 150 mg/dLBorderline High Triglyceride 150-199 mg/dLHigh Triglyceride: 200-499 mg/dLVery High Triglyceride: greater than or equal to 5OO mg/dL Cholesterol 160 <200 mg/dL [facility] Comment:Desirable Cholestero l: less than 200 mg/dLBorderline High Cholesterol: 200-239 mg/dLHigh Cholesterol: greater than 239 mg/dL LDL Cholesterol Calculated 93 <100 mg/dL [facility] Comment:Desirable LDL: less than 100 mg/dLNear Optimal/Above Optimal LDL: 110- 129 mg/dLBorderline High LDL: 130-159 mg/dLHigh LDL: 160-189 mg/dLVery High LDL: greater than or equal to 190 mg/dL HDL Cholesterol 42 >40 mg/dL [facility] Comment:Desirable HDL: great er than 40 mg/dL Note: This HDL assay may give artificially low results in patients with liver disease. Blood Venous blood specimen / Unknown 04/22/2024 10:42 AM EST 04/22/2024 11:19 AM EST Tereza Bowen [facility] LAB BLOOD ORDERABLES Glo l Result Performing Organization Address [facility] Co de Phone Number [facility] [address] [place] [phone] * Pap with NG,CT,Trich (12/15/2023 11:00 AM EDT) Trichomonas (NAAT) NOT DETECTED NOT DETECTED [facility] Comment:The analytical perfo rmance characteristics of thisassay have been determined by [facility]. Themodifications have not been cleared or approved bythe FDA. This assay has been validated pursuant to theIA regulations and is used for clinical purposes.For additional information, please refer tohttp://education.[employer]/faq/Trichomonastma(This link is being provided for information/educational purposes only.)THIS TEST WAS PERFORMED AT:[facility] [address] [id number] SOUTH MD CTNG Ref Lab NOT DETECTED NOT DETECTED [facility] NG Ref Lab NOT DETECTED NOT DETECTED [facility] ThinPrep?? vial Cervix uteri structure / Unknown 12/15/2023 11:00 AM EDT 12/15/2023 11:42 AM EDT Narrative [facility] - 12/18/2023 11:04 PM EDT Was previous PAP abnormal? NoCollection Date: [id number] by: TIMUR Quintanilla: Cervix Tereza Bowen [facility] LAB CYTOLOGY ORDERABLES F inal Result Performing Organization Address [facility]/ZIP Co de Phone Number [facility] [address] [place] [phone] * ThinPrep Imaging System Pap (12/14/2023 11:00 AM EDT) SOURCE: SEE NOTE [facility] Comment:Cervix Report Status: [facility] Clinical Information: SEE NOTE [facility] Comment:None given LMP: SEE NOTE [facility] Comment:NONE GIVEN Prev. PAP: SEE NOTE [facility] Comment:GN Prev. BX: SEE NOTE [facility] Comment:NONE GIVEN Statement Of Adequacy: SEE NOTE [facility] Comment:Satisfactory for clifton luation.Endocervical/transformation zone component absent. General Categorization: [facility] Interpretation/Result: SEE NOTE [facility] Comment:Cytology Results: Ne gative for intraepitheliallesion or malignancy. Cytology Comment SEE NOTE [facility] Comment:This Pap test has be en evaluated with computerassisted technology. Research Study Assistant: SEE NOTE [facility] Comment:CMB, CT(ASCP) CT Scr eening Location: [facility] [address]lide preparation performed at: [facility], [address] [place] [id number] CLIA No. [id number] Review Research Study Assistant: [facility] Pathologist [facility] PAP Infection [facility] See Note SEE [facility] Comment:EXPLANATORY NOTE:The Pap is a screening test for cervical cancer. It isnot a diagnostic test and is subject to false negativeand false positive results. It is most reliable when asatisfactory sample, regularly obtained, is submittedwith relevant clinical findings and history, and whenthe Pap result is evaluated along with historic andcurrent clinical information.THIS TEST WAS PERFORMED AT:[facility] [address] [id number] MERATI,MD 12/14/2023 11:0 0 AM EDT 12/15/2023 11:40 AM EDT [facility] - 12/20/2023 12:03 PM EDT SEE EMR FOR SCANNED REPORTSCREENINGCERVICALINITIAL Tereza Bowen CNM LAB PATHOLOGY ORDERABLES Final Result [facility] [address] [place] [phone] from Last 3 Months or Most Recently Relevant to Health Maintenance Insurance [facility] C[facility] [employer]AREPLUS Care Teams Distributor Operator Relationship Specialty Start Date End Date Karla Lincoln MD [address] [place] [phone] PCP - General Internal Medicine 07/04/24
[2024-10-02 10:41] LABS: Estimated Average Glucose 103 mg/dL; Hemoglobin A1C 117.1343 umol/L; Hemoglobin A1c % 5.2 % (<6.0)
[2024-10-02 10:47] LABS: Basophils Absolute Auto 0.1 X10*3/uL (0.0-0.2); Basophils Percent Auto 0.9 % (0-2); Eosinophils Absolute Auto 0.3 X10*3/uL (0.0-0.4); Eosinophils Percent Auto 5.1 % (0-4); Hematocrit 40.2 % (37.0-47.0); Hemoglobin 13.2 g/dl (12.0-16.0); Imm Gran Abs Auto 0.02 X10*3/uL (0.00-0.03); Imm Gran Pct Auto 0.4 % (0.0-0.4); Lymphocytes Absolute Auto 1.4 X10*3/uL (1.2-4.9); Lymphocytes Percent Auto 26.8 % (20-40); Mean Corpuscular HGB Conc 32.8 g/dl (31.0-35.0); Mean Corpuscular Hemoglobin 28.5 pg (27.0-33.0); Mean Corpuscular Volume 86.8 fL (80.0-98.0); Monocytes Absolute Auto 0.5 X10*3/uL (0.1-1.2); Monocytes Percent Auto 8.9 % (2-11); Neutrophils Absolute Auto 3.1 x10*3/uL (2.0-8.3); Neutrophils Percent Auto 57.9 % (45-73); Platelet Count 350 X10*3/uL (160-400); Red Blood Count 4.63 X10*6/uL (4.20-5.50); Red Cell Distribution Width 12.6 % (11.0-16.0); White Blood Count 5.3 X10*3/uL (4.8-10.8)
[2024-10-02 11:35] LABS: Alanine Aminotransferase 186 U/L (0-31); Albumin Level 4.2 g/dL (3.5-5.0); Alkaline Phosphatase 67 U/L (39-117); Anion Gap 12 (12-20); Aspartate Amino Transferase 136 U/L (5-31); Bilirubin Total 0.4 mg/dL (0.0-1.0); Blood Urea Nitrogen 17 mg/dL (9-16); C Reactive Protein 4.19 mg/dL (< or = 0.50); Calcium 9.4 mg/dL (8.4-10.2); Carbon Dioxide 26 mmol/L (22-29); Chloride 105 mmol/L (96-108); Cholesterol 182 mg/dL (<200); Estimated Glomerular Filt Rate > 60; Glucose Random 104 mg/dL (60-115); HDL Cholesterol 42 mg/dL (>40); Iron 78 mcg/dL (30-160); LDL Cholesterol Calculated 112 mg/dL (<100); Percent Iron Saturation 30 % (15-50); Potassium 4.1 mmol/L (3.3-5.1); Sodium 139 mmol/L (135-145); Total Iron Binding Capacity 258 mcg/dL (228-428); Total Protein 8.2 g/dL (6.5-8.0); Triglycerides 141 mg/dL (<150); Unsaturated Iron Binding 180 ug/dL
[2024-10-02 11:41] LABS: Folate 11.4 ng/mL (> or = 4.0); Vitamin B12 433 pg/mL (200-900)
[2024-10-02 11:44] LABS: Ferritin 286 ng/mL (10-122); TSH reflex Free T4 2.79 uIU/mL (0.32-4.0); Vitamin D 25-OH Total 21.2 ng/mL (>30)
[2024-10-02 12:06] LABS: Insulin 21 uU/mL (2-29)
[2024-10-05 12:22] LABS: Zinc 72 mcg/dL (60-130)
[2024-10-06 12:24] LABS: Vitamin A 29 mcg/dL (38-98)
[2024-10-12 10:13] LABS: Vitamin B1 8 nmol/L (8-30)
== END 2024-10-02 09:05 | disposition home or self-care (01) ==
LOC: HO.LAB 09:04
PROVIDERS: PCP Internal Medicine; Visit Provider Surgery
DX: J45.909 Unspecified asthma, uncomplicated (principal); E66.01 Morbid (severe) obesity due to excess calories
CPT/HCPCS: 36415; 71046; 80053; 80061; 82306; 82607; 82728; 82746; 83036; 83525; 83540; 84425; 84443; 84590; 84630; 85025; 86140; 93005

== ENCOUNTER → 2024-10-02 09:33 | Outpatient (BNV) | payer MEDICAID, SELFPAY | PROVIDERS: PCP Internal Medicine; Visit Provider Internal Medicine Cardiovascular Disease | DX: E66.01 Morbid (severe) obesity due to excess calories (principal) | CPT/HCPCS: 93010 ==

== ENCOUNTER → 2024-10-02 09:45 | Outpatient (BNV) | payer MEDICAID, SELFPAY | PROVIDERS: PCP Internal Medicine; Visit Provider Radiology Diagnostic Radiology | DX: E66.01 Morbid (severe) obesity due to excess calories (principal) | CPT/HCPCS: 71046 ==

== ENCOUNTER 2024-10-22 10:12 | Outpatient (AMB) | payer OTHER, SELFPAY ==
--- NOTE | 2024-10-22 10:05 | A.OFFWM_ITS ---
Intake Intake Visit Reasons: VIDEO BH Intake Allergies No Known Allergies Allergy (Verified 07/25/24 10:49) [facility] Medical History (Updated 10/07/24 @ 09:15 by Arsalan Ibarra MD) Asthma Morbid obesity Surgical History (Updated 07/15/24 @ 10:51 by Nisha Gonzales CMA) No history of previous surgery Family History (Updated 07/15/24 @ 10:52 by Nisha Gonzales CMA) Mother Arthritis Father No problems noted. Social History (Updated 07/15/24 @ 10:51 by Nisha Gonzalse CMA) Alcohol intake: never Patient Tobacco Use Status: Never used Tobacco Behavioral Health Assessment Weight Management Therapy Therapy Notes Details PT is a 24 years old female, who presents for a initial visit to start BH assessment as part of surgical weight loss program. Presenting Concerns Referral Source [facility]- Provider. Reason for referral Completion of behavioral health assessment as part of process for weight-loss surgery. Precipitating Event Obesity and issues getting . Living Situation Current Living Situation Rent At risk of losing current housing? No Satisfied with current living situation? Yes Comments PT lives with her partner, parents-in law and sister and brother-in law. Food/Weight/Diet Expectations of change PT started the program on 07/25/2024 at 291Lbs, and the initial goal was to lose 10% of your weight before surgery, which is about 31lbs. Ultimate weight goal: 260 lbs before surgery. Weight as of 10/21/2024: 285 lbs. The patient would like to be at a healthy weight and feel comfortable with her weight, as well as become a mom and feel better physically. PT is implementing the following: Current meal plan: 2 protein shakes, 2 protein bars, and one meal per day. Exercise plan: Gym membership. Treadmill and elliptical for 30 minutes each, 5 days a week. Scale: yes Communication with provider: yes on Mondays. History/Relationship with food Example of meals before starting the program: Breakfast: Lunch: Dinner: Snacks: Drinks/Liquids: History/Relationship with weight In the last 10 years, the patient's Lowest weight was and highest Social History Family history and relationship PT has been in a relationship for over 2 years, and they have lived together 2 years. They don't have children, her partner has a son. PT has 1 brother who lives in [place], her parents are alive living in [place]. 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 Developmental history and status Currently WNL Social support Partner, his family, and her family. Community support PCP who referred her to the program. Sabianist/Spirituality None Cultural/Ethnic information Born and raised in [place]. Moved to [place] at age 17, been in [place] 2 years ago. Legal Involvement and History Current or historical involvement with the legal system? None reported. Education Highest grade completed HS. Preferred learning style Learn by doing and Visual Currently enrolled in educational program? No Interested in further educational program? 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 She likes cooking Employment Employment Status Unemployed (1 year ago. ) Wants help to find employment? No Meaningful activities play volleyball, Tv shows, reading. Financial Situation Describe current financial situation Comfortable Financial assistance? [employer] and Other (Insurance/[employer].) Service Service? No Mental Health and Addiction Treatment Current/Past substance abuse? No Comments Alcohol: couple times at year, about 1 time every 4-5 months. When drink she does 2-3 drinks (beer) Cigarettes/Tobacco: None. Cannabis/Edibles: None. Current/Past addictive behavior concerns? No Psychiatric history PT reports that she has never been in counseling and has never experienced a crisis or been hospitalized for mental health issues. There is no history or current concern regarding suicidal ideation, self-harm, or harm to others. Medical and Physical Health Summary Additional Medical History not covered in history None additional. Sexual History concerns Fertility issues. Physical exam in the last year? Yes Pain Screening Current pain? No Pain in the last few months? No Medications Is the patient compliant with medications? Yes Does the patient have Thomson Guardian in place? Not applicable Does the patient use complimentary health approaches? No Trauma/Abuse History History of trauma? No Questionnaires PHQ-9 Over the last 2 weeks, how often have you been bothered by any of the following problems? 1. Little interest or pleasure in doing things: several days 2. Feeling down, depressed, or hopeless: not at all 3. Trouble falling or staying asleep, or sleeping too much: more than half the days 4. Feeling tired or having little energy: several days 5. Poor appetite or overeating: not at all 6. Feeling bad about yourself - or that you are a failure or have let yourself or your family down: not at all 7. Trouble concentrating on things, such as reading the newspaper or watching television: not at all 8. Moving or speaking so slowly that other people could have noticed. Or the opposite - being so fidgety or restless that you have been moving around a lot more than usual: not at all 9. Thoughts that you would be better off or of hurting yourself in some way: not at all Total score: 4 Depression Screening Interpretation: Positive (From new PT pack. New one will be administered at next visit. ) Depression Screening Done: Yes Source: Developed by Drs. Juan A Escobar, Jasmin Freed, Enrique Clarke and colleagues, with an educational darren from [employer]. Binge Eating Scale Group 1 A. I don't feel self-conscious about my wt. or body size when I'm with others. B. I feel concerned about how I look to others, but it normally does not make me fell disappointed with myself C. I do get self-conscious about my appearance and wt. which makes me feel disappointed in myself. D. I feel very self-conscious about my wt. and frequently I feel intense shame and disgust for myself. I try to avoid social contacts because of my self- consciousness. Response Group 1: A Group 2 A. I don't have any difficulty eating slowly in the proper manner. B. Although I seem to gobble down foods, I don't end up feeling stuffed because of eating to much. C. At times, I tend to eat quickly and then, I feel uncomfortably full afterwards. D. I have the habit of bolting down my food, without really chewing it. When this happens I usually feel uncomfortably stuffed because I've eaten to much. Response Group 2: B Group 3 A. I feel capable to control my eating urges when I want to. B. I feel like I have failed to control my eating more than the average person. C. I feel utterly helpless when it comes to feeling in control of my eating urges. D. Because I feel so helpless about controlling my eating I have become very desperate about trying to get control. Response Group 3: A Group 4 A. I don't have the habit of eating when I'm bored. B. I sometimes eat when I'm bored, but often I'm able to get busy and get my mind off food. C. I have a regular habit of eating when I'm bored, but occasionally, I can use some other activity to get my mind off eating. D. I have a strong habit of eating when I'm bored. Nothing seems to help me breath the habit. Response Group 4: C Group 5 A. I'm usually physically hungry when I eat something. B. Occasionally, I eat something on impulse even though I really am not hungry. C. I have the regular habit of eating foods, that I might not really enjoy, to satisfy a hungry feeling even though physically, I don't need the food. D. Although I'm not physically hungry, I get a hungry feeling in my mouth that only seems to be satisfied when I eat a food, like sandwich, that fills my mouth. Sometimes, when I eat the food to satisfy my mouth hunger, I then spit the food out so I won't gain weight. Response Group 5: B Group 6 A. I don't feel any guilt or self-hate after I overeat. B. After I overeat, occasionally I feel guilt or self-hate. C. Almost all the time I experience strong guilt or self-hate after I overeat. Response Group 6: A Group 7 A. I don't lose total control of my eating when dieting even after periods when I overeat. B. Sometimes when I eat a forbidden food on a diet, I feel like I blew it and eat even more. C. Frequently, I have the habit of saying to myself, I've blown it now, why not go all the way, when I overeat on a diet. When that happens I eat more. D. I have a regular habit of starting a strict diets for myself but I break the diets by going on an eating binge. My life seems to be either a feast or famine. Response Group 7: B Group 8 A. I rarely eat so much food that I feel uncomfortably stuffed afterwards. B. Usually about once a month, I each such a quantity of food, I end up feeling very stuffed. C. I have regular periods during the month when I eat large amounts of food, either at mealtime or at snacks. D. I eat so much food that I regularly feel quite uncomfortable after eating and sometimes a bit nauseous. Response Group 8: C Group 9 A. My level of calorie intake does not go up very high or go down very low on a regular basis. B. Sometimes after I overeat, I will try to reduce my caloric intake to almost nothing to compensate for the excess calories I've eaten. C. I have a regular habit of overeating during the night. It seems that my routine is not to be hungry in the morning but overeat in the evening. D. In my adult years, I have had week-long periods where I practically starve myself. This follows periods when I overeat. It seems I live a life of either feast or famine. Response Group 9: A Group 10 A. I usually am able to stop eating when I want to. I know when enough is enough. B. Every so often, I experience a compulsion to eat which I can't seem to control. C. Frequently, I experience strong urges to eat which I seem unable to control, but at other times I can control my eating urges. D. I feel incapable of controlling urges to eat. I have a fear of not being able to stop eating voluntarily. Response Group 10: A Group 11 A. I don't have any problem stopping eating when I feel full. B. I usually can stop eating when I feel full but occasionally overeat leaving me feeling uncomfortably stuffed. C. I have a problem stopping eating once I start and usually I feel uncomfortably stuffed after I eat a meal. D. Because I have a problem not being able to stop eating when I want, I sometimes have to induce vomiting to relieve my stuffed feeling. Response Group 11: A Group 12 A. I seem to eat just as much when I'm with others, Family social gatherings as when I'm by myself. B. Sometimes, when I'm with other persons, I don't eat as much as I want to eat because I'm self-conscious about my eating. C. Frequently, I eat only a small amount of food when others are present, because I'm very embarrassed about my eating. D. I feel so ashamed about overeating that I pick times to overeat when I know no one will see me. I feel like a closet eater. Response Group 12: C Group 13 A. I eat three meals a day with only an occasional between meal snack. B. I eat 3 meals a day, but I also normally snack between meals. C. When I am snacking heavily, I get in the habit of skipping regular meals. D. There are regular periods when I seem to be continually eating, with no planned meals. Response Group 13: D Group 14 A. I don't think much about trying to control unwanted eating urges. B. At least some of the time, I feel my thoughts are pre-occupied with trying to control my eating urges. C. I feel that frequently I spend much time thinking about how much I ate or about trying not to eat anymore. D. It seems to me that most of my waking hours are pre-occupied by thoughts about eating or not eating. I feel like I'm constantly struggling not to eat. Response Group 14: C Group 15 A. I don't think about food a great deal. B. I have strong craving for food but they last only for brief periods of time. C. I have days when I can't seem to think about anything else but food. D. Most of my days seem to be pre-occupied with thoughts about food. I feel like I live to eat. Response Group 15: A Group 16 A. I usually know whether or not I'm physically hungry. I take the right portion of food to satisfy me. B. Occasionally, I feel uncertain about knowing whether or not I'm physically hungry. A these times it's hard to know how much food I should take to satisfy me. C. Even though I might know how many calories I should eat, I don't have any idea what is a normal amount of food for me. Response Group 16: A Binge Eating Score: 14 Score less than 17 Minimal Risk Score between 18-26 Moderate Risk Score between 27-46 High Risk Assessment & Plan Assessment & Plan (1) Adjustment disorder: Code(s): F43.20 - Adjustment disorder, unspecified (2) Inappropriate diet or eating habits: Code(s): Z72.4 - Inappropriate diet and eating habits (3) Pre-bariatric surgery psychological evaluation: Code(s): Z71.89 - Other specified counseling Plan The patient was not cleared today as the assessment remains incomplete. PT will follow up in two weeks to complete the evaluation. At the next visit, the PHQ-9 will be re-administered to reassess depressive symptoms. Next krysten: 11/05/24 at 10am Telehealth Telehealth Telehealth Telehealth Platform: [employer] Location of provider rendering services: other Location of patient: address on file Patient Identification confirmed using: Name, : Yes Telehealth method: video Patient verbally consented to treatment: Yes Patient verbally consented to billing insurance company: Yes Patient informed of any privacy concerns related to visit: Yes Minutes spent on Phone/Video with Pt.: 55 Coding Level of Care Code New Pt Tele Psy Diag Eval (15431) Patient Type New Diagnoses Adjustment disorder F43.20 Inappropriate diet or eating habits Z72.4 Pre-bariatric surgery psychological evaluation Z71.89 Time Spent (min) 55
--- OUTSIDE RECORDS SUMMARY | 2024-10-22 11:40 | XMS_ITS | Encounter Summary ---
Author Organization [employer] Address [address] [place] [address] Care Team Providers Care Farm Manager Name Role Phone Karla Lincoln MD Primary Care Provide r Encounter Details Date Type Department Care Team (Late Contact Info) Description 01/08/2024 Orders Only [facility] [address] [place] [id number] Tereza Bowen CNM [address] [place] [address] Social History Tobacco Use Types Packs/Day Years [...] Description 01/02/2025 10:45 AM EDT Office Visit [facility] [address] [place] [id number] Karla Lincoln MD [address] [place] [phone] documented as of this encounter Visit Diagnoses Not on filedocumented in this encounter Care Teams Farm Manager Relationship Specialty Start Date End Date Karla Lincoln MD [address] [place] [phone] PCP - General Internal Medicine 07/04/24 documented as of this encounter
--- OUTSIDE RECORDS SUMMARY | 2024-10-22 11:40 | XMS_ITS | Clinical Summary ---
Author Organization [employer] Address [address] [place] [address] Care Team Providers Care Body Trimmer Upholsterer Name Role Phone Karla Lincoln MD Primary [...] Type Department Care Team Description 10/02/2024 Refill [facility] [address] [place] [address] Tereza Bowen CNM 10/02/2024 Orders Only GENERIC EXTERNAL DATA DEPARTMENT Provider, Generic External Data 09/12/2024 Telephone [facility] [address] [facility] [place] [address] Karla Lincoln MD Call Back Request 09/05/2024 Telephone [facility] [address] [place] [address] Karla Lincoln MD Nurse Triage 08/30/2024 Population Health Risk Score [facility] ([facility]) Department [address] [phone] Provider, Population Health Generic from [...] 01/02/2025 10:45 AM EDT Office Visit [facility] [address] [place] [address] Karla Lincoln MD [address] [place] [address] Health Maintenance Due Date Last Done Comments [...] (BMI) of 50.0 to 59.9 in adult ([facility]) CHLAMYDIA/N. GONORRHOEAE AND T. VAGINALIS RNA, QUAL,TMA Routine 12/15/2023 11:00 AM EDT Routine cervical smear Encntr screen for infections w sexl mode of transmiss [employer] PAP Routine 12/14/2023 11:00 AM EDT from Last 3 Months or Most Recently Relevant to Health Maintenance Results * XR Chest 2 Views (10/02/2024 9:45 AM EDT) Anatomical Region Laterality Modality Chest Radiographic Vivian ging 10/02/2024 9:45 AM EDT Narrative 10/02/2024 3:20 PM EDT ? [facility] ?[address] ?[place] [address] ?XRay Report ? Signed ? Patient: Avery De Souza,Saniya L ?MR#: [id number] ?? [id number] ? : 2000 ?Acct:[id number] ? Age/Sex: 24 / F ?ADM Date: 10/02/24 ? Loc: HO.LAB ? Attending Dr: Arsalan Ibarra MD ? Ordering Physician: Arsalan Ibarra MD ?? Date of Service: 10/02/24 ?? Procedure(s): XR chest 2V ?? Accession Number(s): [id number] ? cc: Karla Lincoln MD; Arsalan Ibarra [...] chest. ? Electronically signed by: ??Juan A cMkeon MD ??10/02/2024 03:17 PM EDT ? Dictated By: ?Juan A Mckeon MD ? Signed By: ?<Electronically signed by Juan A Mckeon MD in OV> ?10/02/24 1517 ? DD/ 0945 ? TD/TT: 10/02/24 0957 ? Resident Care Coordinator: ? Procedure Note Ne Aden - 10/02/2024 [address] [phone] [place] [address] XRay Report Signed Patient: Saniya Reagan LMR#: [id number] : 2000Acct:[id number] Age/Sex: 24 / FADM Date: 10/02/24 Loc: HO.LAB Attending Dr: Arsalan Ibarra MD Ordering Physician: Arsalan Ibarra MD Date of Service: 10/02/24 Procedure(s): XR chest 2V Accession Number(s): [id number] cc: Karla Lincoln MD; Arsalan Ibarra MD [...] 03:17 PM EDT Dictated By: Juan A Mckoen MD Signed By: <Electronically signed by Juan A Mckeon MD in OV> 10/02/24 1517 DD/ 0945 TD/TT: 10/02/24 0957 Resident Care Coordinator: [facility] External Provider IMG XR PROCEDURES Final Result * (ABNORMAL) Vitamin D, 25-Hydroxy, Total, Immunoassay (10/02/2024 9:21 AM EDT) Vitamin D 25-OH Total 21.2(L) >30 ng/mL [facility] Comment: Health Based Reference Values*< 20 ??ng/mL ??[id number] ng/mL ??Insufficient> 30 ??ng/mL ??Sufficient*Jennifer WOODARD. N [...] ORDERAB LES Final Result Performing Organization Address [facility] Co de Phone Number [facility] [address] [place] [phone] * Vitamin B12 (Cobalamin) and Folate Panel, Serum (10/02/2024 9:21 AM EDT) Vitamin B12 433 200 - 900 pg/mL [facility] Comment:NORMAL 200-900 PG/ML INDETERMINATE 160-199 PG/ML DEFICIENT < 160 PG/ML Folate 11.4 > or = 4.0 ng/mL [facility] Comment:Reference Values:> o r = 4.0 ng/mL< 4.0 ng/mL suggests folate deficiency Methotrexate, aminopterin and folinic acid(leucovorin) are chemotherapeutic agents whose molecularstructures are similar to folate; therefore, the Architectfolate assay cannot be used for patients using these drugs. 10/02/2024 9:21 AM EDT 10/02/2024 9:23 AM EDT us Generic External Data Provider LAB BLOOD ORDERAB LES Final Result Performing Organization Address [facility] Co de Phone Number [facility] [address] [place] [phone] * TSH with Reflex to Free T4 (10/02/2024 9:21 AM EDT) TSH reflex Free T4 2.79 0.32 - 4.0 uIU/mL [facility] 10/02/2024 9:21 AM EDT 10/02/2024 9:23 AM EDT us Generic External Data Provider LAB BLOOD ORDERAB LES Final Result Performing Organization Address City/State/[facility] Co de Phone Number [facility] [address] [place] [phone] * (ABNORMAL) CBC auto differential (10/02/2024 9:21 AM EDT) Pathologist [facility] White Blood Count 5.3 4.8 - 10.8 X10*3/uL [facility] Red Blood Count 4.63 4.20 - 5.50 X10*6/uL [facility] Hemoglobin 13.2 12.0 - 16.0 g/dl [facility] Hematocrit 40.2 37.0 - 47.0 % [facility] Mean Corpuscular Volume 86.8 80.0 - 98.0 fL [facility] Mean Corpuscular Hemoglobin 28.5 27.0 - 33.0 pg [facility] Mean Corpuscular HGB Conc 32.8 31.0 - 35.0 g/dl [facility] Red Cell Distribution Width 12.6 11.0 - 16.0 % [facility] Platelet Count 350 160 - 400 X10*3/uL [facility] Mean Platelet Volume 10.0 9.4 - 12.3 fL [facility] Neutrophils Percent Auto 57.9 45 - 73 % [facility] Imm Gran Pct Auto 0.4 0.0 - 0.4 % [facility] Lymphocytes Percent Auto 26.8 20 - 40 % [facility] Monocytes Percent Auto 8.9 2 - 11 % [facility] Eosinophils Percent Auto 5.1(H) 0 - 4 % [facility] Basophils Percent Auto 0.9 0 - 2 % [facility] NRBC Pct Auto 0.0 0.0 - 0.2 /100WBC [facility] Neutrophils Absolute Auto 3.1 2.0 - 8.3 x10*3/uL [facility] Imm Gran Abs Auto 0.02 0.00 - 0.03 X10*3/uL [facility] Lymphocytes Absolute Auto 1.4 1.2 - 4.9 X10*3/uL [facility] Monocytes Absolute Auto 0.5 0.1 - 1.2 X10*3/uL [facility] Eosinophils Absolute Auto 0.3 0.0 - 0.4 X10*3/uL [facility] Basophils Absolute Auto 0.1 0.0 - 0.2 X10*3/uL [facility] NRBC Abs Auto 0.000 0.0 - 0.012 X10*3/uL [facility] 10/02/2024 9:21 AM EDT 10/02/2024 9:23 AM EDT Generic External Data Provider LAB BLOOD ORDERAB LES Final Result Performing Organization Address [facility] Co de Phone Number [facility] [address] [place] [phone] [phone] * Iron And Total Iron Binding Capacity (10/02/2024 9:21 AM EDT) Iron 78 30 - 160 mcg/dL [facility] Total Iron Binding Capacity 258 228 - 428 mcg/dL [facility] Percent Iron Saturation 30 15 - 50 % [facility] Unsaturated Iron Binding 180 ug/dL [facility] 10/02/2024 9:21 AM EDT 10/02/2024 9:23 AM EDT us Generic External Data Provider LAB BLOOD ORDERAB LES Final Result Performing Organization Address [facility]/ZIP Co de Phone Number [facility] [address] [place] [phone] [phone] * Insulin (10/02/2024 9:21 AM EDT) Pathologist [facility] Insulin 21 2 - 29 uU/mL [facility] Comment:This test was perfor med [...] ORDERAB LES Final Result Performing Organization Address [facility] de Phone Number [facility] [address] [place] [address] [phone] * Zinc (10/02/2024 9:21 AM EDT) [facility] Zinc 72 60 - 130 mcg/dL [facility] Comment:This test was develo ped and its analytical performancecharacteristics have been determined by [employer] [place], [place]. It hasnot been cleared or approved by the U.S. Food and DrugAdministration. This assay has been validated pursuantto the CLIA regulations and is used for clinicalpurposes.THIS TEST WAS PERFORMED AT:[employer] [place] [address]QKBHAEDDANIELA VIGIL MD,PHD 10/02/2024 9:21 AM EDT 10/02/2024 9:23 AM EDT Generic External Data Provider LAB BLOOD ORDERAB LES Final Result Performing Organization Address [facility] de Phone Number [facility] [address] [place] [address] [phone] * (ABNORMAL) Vitamin A (10/02/2024 9:21 AM EDT) Vitamin A (Retinol) 29(A) 38 - 98 mcg/dL [facility] Comment:Vitamin supplementat ion within 24 hours prior toblood draw may affect the accuracy of the results.This test was developed and its analytical performancecharacteristics have been determined by [place] It hasnot been cleared or approved by the U.S. Food and DrugAdministration. This assay has been validated pursuantto the CLIA regulations and is used for clinicalpurposes.THIS TEST WAS PERFORMED AT:[employer] [place] [address]CXLIKQZDANIELA VIGIL MD,PHD 10/02/2024 9:21 AM EDT 10/02/2024 9:23 AM EDT Generic External Data Provider LAB BLOOD ORDERAB LES Final Result Performing Organization Address [facility]/ZIP Co de Phone Number [facility] [address] [place] [phone] * (ABNORMAL) C-reactive Protein (10/02/2024 9:21 AM EDT) [facility] C Reactive Protein 4.19(H) < or = 0.50 mg/dL [facility] 10/02/2024 9:21 AM EDT 10/02/2024 9:23 AM EDT Generic External Data Provider LAB BLOOD ORDERAB LES Final Result Performing Organization Address City/[facility]/ZIP Co de Phone Number [facility] [address] [place] [phone] * Vitamin B1 (10/02/2024 9:21 AM EDT) [facility] Vitamin B1 8 8 - 30 nmol/L [facility] Comment:Vitamin supplementat ion within 24 hours prior toblood draw may affect the accuracy of the results.This test was developed and its analytical performancecharacteristics have been determined by [employer] [place], [place]. It hasnot been cleared or approved by the U.S. Food and DrugAdministration. This assay has been validated pursuantto the CLIA regulations and is used for clinicalpurposes.THIS TEST WAS PERFORMED AT:[employer] [place] [address]ROJEKHQDANIELA VIGIL MD,PHD 10/02/2024 9:21 AM EDT 10/02/2024 9:23 AM EDT Generic External Data Provider LAB BLOOD ORDERAB LES Final Result Performing Organization Address [facility] Co de Phone Number [facility] [address] [place] [phone] * Hemoglobin A1c (10/02/2024 9:21 AM EDT) Hemoglobin A1c 5.2 <6.0 % [facility] Comment:Hemoglobin A1C Refer ence Range Adults: 4.8 - 6.0 % Non diabetic: < 6.0 % Goal: < 7.0 %Additional Action Suggested: > 8.0 %Note: Hemoglobin A1c results are invalid for patients with abnormal amounts of HbF. Blood transfusions may impact the HbA1c concentration in the patient sample. Estimated Average Glucose 103 mg/dL [facility] Comment:eAG = Estimated ave rage glucose which is %A1C expressed asaverage glucose, using the formula of the K6G-[id number] Glucose study (ADAG), Diabetes Care, Vol.31,#8,Aug. 2007 10/02/2024 9:21 AM EDT 10/02/2024 9:23 AM EDT Generic External Data Provider LAB BLOOD ORDERAB LES Final Result Performing Organization Address [facility] de Phone Number [facility] [address] [place] [phone] * (ABNORMAL) Ferritin (10/02/2024 9:21 AM EDT) Ferritin 286(H) 10 - 122 ng/mL [facility] 10/02/2024 9:21 AM EDT 10/02/2024 9:23 AM EDT us Generic External Data Provider LAB BLOOD ORDERAB LES Final Result Performing Organization Address City/[facility]/ZIP Co de Phone Number [facility] [address] [place] [address] [phone] * (ABNORMAL) Lipid Panel, Standard (10/02/2024 9:21 AM EDT) Triglycerides 141 <150 mg/dL [facility] Comment:Desirable Triglyceri de: less than 150 mg/dLBorderline High Triglyceride 150-199 mg/dLHigh Triglyceride: 200-499 mg/dLVery High Triglyceride: greater than or equal to 5OO mg/dL Cholesterol 182 <200 mg/dL [facility] Comment:Desirable Cholestero l: less than 200 mg/dLBorderline High Cholesterol: 200-239 mg/dLHigh Cholesterol: greater than 239 mg/dL LDL Cholesterol Calculated 112(H) <100 mg/dL [facility] Comment:Desirable LDL: less than 100 mg/dLNear Optimal/Above Optimal LDL: 110- 129 mg/dLBorderline High LDL: 130-159 mg/dLHigh LDL: 160-189 mg/dLVery High LDL: greater than or equal to 190 mg/dL HDL Cholesterol 42 >40 mg/dL [facility] Comment:Desirable HDL: great er than 40 mg/dL Note: This HDL assay may give artificially low results in patients with liver disease. 10/02/2024 9:21 AM EDT 10/02/2024 9:23 AM EDT us Generic External Data Provider LAB BLOOD ORDERAB LES Final Result Performing Organization Address City/[facility]/ZIP Co de Phone Number [facility] [address] [place] [address] [phone] * (ABNORMAL) Comprehensive Metabolic Panel (10/02/2024 9:21 AM EDT) Sodium 139 135 - 145 mmol/L [facility] Potassium 4.1 3.3 - 5.1 mmol/L [facility] Chloride 105 96 - 108 mmol/L [facility] Carbon Dioxide 26 22 - 29 mmol/L [facility] Anion Gap 12 12 - 20 [facility] Urea Nitrogen (BUN) 17(H) 9 - 16 mg/dL [facility] Creatinine, Serum 0.74 0.5 - 1.4 mg/dL [facility] Estimated Glomerular Filt Rate >60 [facility] Comment:Chronic Kidney Disea se: Estimated GFR < 60 mL/min/1.30e0Kfeplj Kidney Disease: Estimated GFR < 15 mL/min/1.73m2 Glucose 104 60 - 115 mg/dL [facility] Calcium 9.4 8.4 - 10.2 mg/dL [facility] Bilirubin, Total 0.4 0.0 - 1.0 mg/dL [facility] Aspartate Amino Transferase 136(H) 5 - 31 U/L [facility] Alanine Aminotransferase 186(H) 0 - 31 U/L [facility] Total Protein 8.2(H) 6.5 - 8.0 g/dL [facility] Albumin Level 4.2 3.5 - 5.0 g/dL [facility] Alkaline Phosphatase 67 39 - 117 U/L [facility] 10/02/2024 9:21 AM EDT 10/02/2024 9:23 AM EDT Generic External Data Provider LAB BLOOD ORDERAB LES Final Result [facility] [address] [place] [phone] * Hepatitis A,B,C Profile (07/11/2024 12:00 PM EST) Hepatitis A IgM Nonreactive Nonreactive [facility] Comment:IgM antibodies to [place]ER[place]OD V not detected; does not exclude earlyacute or recovered HAV infection. ~Hepatitis B Surface Antibody NONREACTIVE Nonreactive [facility] Comment:Nonreactive: < 8.00 mIU/mL Hepatitis B Core Antibody Nonreactive Nonreactive [facility] Hepatitis C Antibody Nonreactive Nonreactive [facility] Comment:Antibodies to HCV no t detected; does not exclude early acuteHCV infection. Hepatitis B Surface Ag Negative Negative [facility] Blood Venous blood specimen / Unknown 07/11/2024 12:00 PM EST 07/11/2024 1:22 PM EST us Karla Mckinney MD LAB BLOOD ORDERABLES Final Result Performing Organization Address [facility]/ZIP Co de Phone Number [facility] [address] [place] [phone] * HIV-1/2 Antigen and Antibodies, Fourth Generation, with Reflexes (07/04/2024 11:11 AM EST) HIV AB/AG Nonreactive Nonreactive [facility] Comment:HIV-1 p24 Ag and/or HIV-1/HIV-2 Ab not detected.A test result that is nonreactive does not exclude thepossibility of exposure to or infection with HIV-1 and/orHIV-2. Nonreactive results in this assay for individualswith prior exposure to HIV-1 and/or HIV-2 may be due toantigen and antibody levels that are below the limit ofdetection of this assay.The [employer] HIV Ag/Ab Combo assay result andsupplemental assay results should be interpreted inconjunction with the patient's clinical presentation,history and other laboratory results. If the results areinconsistent with clinical evidence, additional testing issuggested to confirm the result. Blood Venous blood specimen / Unknown 07/04/2024 11:11 AM EST 07/04/2024 1:03 PM EST us Karla Mckinney MD LAB BLOOD ORDERABLES Final Result Performing Organization Address [facility]/ZIP Co de Phone Number [facility] [address] [place] [phone] * Pap with NG,CT,Trich (12/15/2023 11:00 AM EDT) Trichomonas (NAAT) NOT DETECTED NOT DETECTED [facility] Comment:The analytical perfo rmance characteristics of thisassay have been determined by [employer]. Themodifications have not been cleared or approved bythe FDA. This assay has been validated pursuant to theCLIA regulations and is used for clinical purposes.For additional information, please refer tohttp://education.1000memories/faq/Trichomonastma(This link is being provided for information/educational purposes only.)THIS TEST WAS PERFORMED AT:[employer] [place] [address]DCWLKJOSSELINE SOUTH MD CTNG Ref Lab NOT DETECTED NOT DETECTED [facility] NG Ref Lab NOT DETECTED NOT DETECTED [facility] ThinPrep?? vial Cervix uteri structure / Unknown 12/15/2023 11:00 AM EDT 12/15/2023 11:42 AM EDT Narrative [facility] - 12/18/2023 11:04 PM EDT Was previous PAP abnormal? NoCollection Date: [id number] by: TIMUR Quintanilla: Cervix us Tereza Bowen CN LAB CYTOLOGY ORDERABLES F inal Result [facility] [address] [place] [address] [phone] * ThinPrep Imaging System Pap (12/14/2023 11:00 AM EDT) SOURCE: SEE NOTE [facility] Comment:Cervix Report Status: TNP [facility] Clinical Information: SEE NOTE [facility] Comment:None given LMP: SEE NOTE [facility] Comment:NONE GIVEN Prev. PAP: SEE NOTE [facility] Comment:GN Prev. BX: SEE NOTE [facility] Comment:NONE GIVEN Statement Of Adequacy: SEE NOTE [facility] Comment:Satisfactory for clifton luation.Endocervical/transformation zone component absent. General Categorization: [facility] Interpretation/Result: SEE NOTE [facility] Comment:Cytology Results: Ne gative for intraepitheliallesion or malignancy. Cytology Comment SEE NOTE [facility] Comment:This Pap test has be en evaluated with computerassisted technology. Facilities Maintenance Worker: SEE NOTE [facility] Comment:CMB, CT(ASCP) CT Scr eening Location: [employer] [place], [place] [address]Slide preparation performed at: [employer], [address] [place] [address] CLIA No. [id number] Review Facilities Maintenance Worker: [facility] Pathologist [facility] PAP Infection [facility] See Note SEE NOTE [facility] Comment:EXPLANATORY NOTE:The Pap is a screening test for cervical cancer. It isnot a diagnostic test and is subject to false negativeand false positive results. It is most reliable when asatisfactory sample, regularly obtained, is submittedwith relevant clinical findings and history, and whenthe Pap result is evaluated along with historic andcurrent clinical information.THIS TEST WAS PERFORMED AT:[employer] [address] [address]NOJXXK MERATI,MD 12/14/2023 11:0 0 AM EDT 12/15/2023 11:40 AM EDT Narrative [facility] - 12/20/2023 12:03 PM EDT SEE EMR FOR SCANNED REPORTSCREENINGCERVICALINITIAL us Tereza Bowen CNM LAB PATHOLOGY ORDERABLES Final Result [facility] [address] [place] [phone] from Last 3 Months or Most Recently Relevant to Health Maintenance Insurance [facility] C3 [facility] [employer] Care Teams Body Trimmer Upholsterer Relationship Specialty Start Date End Date Karla Lincoln MD [address] [place] [address] PCP - General Internal Medicine 07/04/24
--- OUTSIDE RECORDS SUMMARY | 2024-10-22 11:40 | XMS_ITS | Encounter Summary ---
Author Organization [employer] Address [address] [place] [address] Care Team Providers Care Mesh Man Name Role Phone Karla Lincoln MD Primary Care Provide r Reason for Visit * Reason Onset Date Comments Med Refill 10/02/2024 Encounter Details Date Type Department Care Team ([facility] st Contact Info) Description 10/02/2024 Refill [facility] [address] [place] [address] Tereza Bowen, [facility] [address] [place] [address] Social History Tobacco Use Types Packs/Day Years [...] Description 01/02/2025 10:45 AM EDT Office Visit [facility] [address] [place] [address] Karla Lincoln MD [address] [place] [address] documented as of this encounter Visit Diagnoses Not on filedocumented in this encounter Additional Health Concerns Assessment Noted Time PHQ-9 Depression Total Score: 6 07/04/19 10:15 AM EST documented as of this encounter Care Teams Mesh Man Relationship Specialty Start Date End Date Karla Lincoln MD [address] [place] [phone] PCP - General Internal Medicine 07/04/24 documented as of this encounter
== END 2024-10-22 10:59 | disposition home or self-care (01) ==
LOC: HO.HBST 10:12
PROVIDERS: PCP Internal Medicine; Visit Provider Counselor Mental Health
DX: F43.20 Adjustment disorder, unspecified (principal); Z72.4 Inappropriate diet and eating habits; Z71.89 Other specified counseling
CPT/HCPCS: 90837

== ENCOUNTER 2024-10-31 07:14 | Day surgery (SDC) | payer MEDICAID, SELFPAY ==
--- OUTSIDE RECORDS SUMMARY | 2024-10-15 12:27 | XMS_ITS | Encounter Summary ---
Author Organization [employer] Address [address] [address]t [place] [address] Care Team Providers Care Advertising Representative Name Role Phone Karla Lincoln MD Primary Care Provide r Encounter Details Date Type Department Care Team (Late Contact Info) Description 01/08/2024 Orders Only [facility] [address] [place] [phone] Tereza Bowen CNM [address] [place] [phone] Social History Tobacco Use Types Packs/Day Years [...] Description 01/02/2025 10:45 AM EDT Office Visit [facility] [address] [place] [phone] Karla Lincoln MD [address] [place] [phone] documented as of this encounter Visit Diagnoses Not on filedocumented in this encounter Care Teams Advertising Representative Relationship Specialty Start Date End Date Karla Lincoln MD [address] [place] [phone] PCP - General Internal Medicine 07/04/24 documented as of this encounter
--- OUTSIDE RECORDS SUMMARY | 2024-10-15 12:27 | XMS_ITS | Encounter Summary ---
Author Organization [employer] Address [address] [place] [address] Care Team Providers Care Channel Development Director Name Role Phone Karla Lincoln MD Primary Care Provide r Reason for Visit * Reason Onset Date Comments Med Refill 10/02/2024 Encounter Details Date Type Department Care Team ([facility] st Contact Info) Description 10/02/2024 Refill [facility] [address] [place] [address] Tereza Bowen, [facility] [address] [place] [address] Social History Tobacco Use Types Packs/Day Years [...] Description 01/02/2025 10:45 AM EDT Office Visit [facility] [address] [place] [address] Karla Lincoln MD [address] [place] [address] documented as of this encounter Visit Diagnoses Not on filedocumented in this encounter Additional Health Concerns Assessment Noted Time PHQ-9 Depression Total Score: 6 07/04/19 10:15 AM EST documented as of this encounter Care Teams Channel Development Director Relationship Specialty Start Date End Date Karla Lincoln MD [address] [place] [phone] PCP - General Internal Medicine 07/04/24 documented as of this encounter
--- OUTSIDE RECORDS SUMMARY | 2024-10-15 12:28 | XMS_ITS | Clinical Summary ---
Author Organization [employer] Address [address] [place] [address] Care Team Providers Care Retail Presentation Specialist Name Role Phone Karla Lincoln MD [...] Encounters Date Type Department Care Team Description 10/02/2024 Refill [facility] [address] [place] [address] Tereza Bowen CNM 10/02/2024 Orders Only GENERIC EXTERNAL DATA DEPARTMENT Provider, Generic External Data 09/12/2024 Telephone [facility] [address] [facility] [place] [address] Karla Lincoln MD Call Back Request 09/05/2024 Telephone [facility] [address] [place] [phone] Karla Lincoln MD Nurse Triage 08/30/2024 Population Health Risk Score [facility] ([facility]) Department [address] [phone] Provider, Population Health Generic from Last 3 Months Immunizations Name Administration [...] Description 01/02/2025 10:45 AM EDT Office Visit [facility] [address] [place] [address] Karla Lincoln MD [address] [place] [address] Health Maintenance Due Date Last Done Comments HPV Vaccines (1 - 3-dose series) 2016 DTaP/Tdap/Td Vaccines (1 - Tdap) 2020 Hepatitis B Vaccines (1 of 3 - 19+ 3-dose series) 2020 Pneumococcal Vaccine: Pediatrics (0 to 5 Years) and At-Risk Patients (6 to 49) Years) (1 of 2 - PCV) 2020 COVID-19 Vaccine (1 - 2023-2 5 season) 2024 Chlamydia and Gonorrhea Screening 12/14/2024 12/15/2023 Family Planning (PISQ) 05/21/2025 05/21/2024 Alcohol/Substance Use Screening 07/04/2025 07/04/2024 Depression Screening 07/04/2025 07/04/2024, 07/04/2024 SDOH Screening 07/04/2025 07/04/2024 Tobacco Screening 07/04/2025 07/04/2024 Pap Smear 12/13/2026 12/14/2023 Lipid Panel 10/02/2029 10/02/2024, 04/22/2024 Zoster Vaccines (1 of 2) 2051 [...] Procedure Name Priority Date/Time Associated Diagnosis Comments XR CHEST 2 VIEWS Routine 10/02/2024 9:45 AM EDT VITAMIN B1 Routine 10/02/2024 9:21 AM EDT VITAMIN A Routine 10/02/2024 9:21 AM EDT ZINC Routine 10/02/2024 9:21 AM EDT INSULIN Routine 10/02/2024 9:21 AM EDT TSH W/REFLEX TO FT4 Routine 10/02/2024 9 :21 AM EDT VITAMIN D,25-OH,TOTAL,IA Routine 10/02/2024 9:21 AM EDT FERRITIN Routine 10/02/2024 9:21 AM EDT VITAMIN B12/FOLATE, SERUM PANEL Routine 10/02/2024 9:21 AM EDT LIPID PANEL, STANDARD Routine 10/02/2024 9:21 AM EDT C-REACTIVE PROTEIN Routine 10/02/2024 9: 21 AM EDT IRON AND TOTAL IRON BINDING CAPACITY Routine 10/02/2024 9:21 AM EDT COMPREHENSIVE METABOLIC PANEL Routine 10/02/2024 9:21 AM EDT CBC WITH AUTO DIFFERENTIAL Routine 10/02/2024 9:21 AM EDT HEMOGLOBIN A1C Routine 10/02/2024 9:21 AM EDT HEPATITIS PANEL, GENERAL Routine 07/11/2024 12:00 PM EST Elevated LFTs HIV 1/2 ANTIGEN/ANTIBODY, FOURTH GENERATION W/RFL Routine 07/04/2024 11:11 AM EST Class 3 severe obesity due to excess calories without serious comorbidity with body mass index (BMI) of 50.0 to 59.9 in adult ([facility]) CHLAMYDIA/N. GONORRHOEAE AND T. VAGINALIS RNA, QUAL,TMA Routine 12/15/2023 11:00 AM EDT Routine cervical smear Encntr screen for infections w sexl mode of transmiss [facility] PAP Routine 12/14/2023 11:00 AM EDT from Last 3 Months or Most Recently Relevant to Health Maintenance Results * XR Chest 2 Views (10/02/2024 9:45 AM EDT) Anatomical Region Laterality Modality Chest Radiographic Vviian ging 10/02/2024 9:45 AM EDT Narrative 10/02/2024 3:20 PM EDT ? [facility] ?[address] ?[place] [address] ?XRay Report ? Signed ? Patient: Avery De Souza,Saniya L ?MR#: [id number] ?? [id number] ? : 2000 ?Acct:[id number] ? Age/Sex: 24 / F ?ADM Date: 10/02/24 ? Loc: HO.LAB ? Attending Dr: Arsalan Ibarra MD ? Ordering Physician: Arsalan Ibarra MD ?? Date of Service: 10/02/24 ?? Procedure(s): XR chest 2V ?? Accession Number(s): [id number] ? cc: Karla Lincoln MD; Arsalan Ibarra MD ? EXAMINATION: ??XR CHEST 2 VIEWS ? HISTORY: E66.01 - Morbid (severe) obesity due to excess calories ? COMPARISON: There are no prior studies for comparison. ? FINDINGS: ??PA and lateral views of the chest are submitted. The lungs ?? are expanded and clear. ??There is no pleural effusion, pneumothorax, or ?? pulmonary vascular congestion. ??The heart is normal in size. ??The bones ?? are intact. ? XR/XR chest 2V ?? IMPRESSION: ?? Normal examination of the chest. ? Electronically signed by: ??Juan A Mckeon MD ??10/02/2024 03:17 PM EDT ? Dictated By: ?Juan A Mckeon MD ? Signed By: ?<Electronically signed by Juan A Mckeon MD in OV> ?10/02/24 1517 ? DD/ 0945 ? TD/TT: 10/02/24 0957 ? [employer]: ? Procedure Note Ne Ad[place] - 10/02/2024 [place] [id number] [facility] [place] [address] XRay Report Signed Patient: Saniya Reagan LMR#: [id number] : 2000Acct:[id number] Age/Sex: 24 / FADM Date: 10/02/24 Loc: HO.LAB Attending Dr: Arsalan Ibarra MD Ordering Physician: Arsalan Ibarra MD Date of Service: 10/02/24 Procedure(s): XR chest 2V Accession Number(s): [id number] cc: Karla Lincoln MD; Arsalan Ibarra MD EXAMINATION: XR CHEST 2 VIEWS HISTORY: E66.01 - Morbid (severe) obesity due to excess calories COMPARISON: There are no prior studies for comparison. FINDINGS: PA and lateral views of the chest are submitted. The lungs are expanded and clear. There is no pleural effusion, pneumothorax, or pulmonary vascular congestion. The heart is normal in size. The bones are intact. XR/XR chest 2V IMPRESSION: Normal examination of the chest. Electronically signed by: Juan A Mckeon MD 10/02/2024 03:17 PM EDT Dictated By: Juan A Mckeon MD Signed By: <Electronically signed by Juan A Mckeon MD in OV> 10/02/24 1517 DD/ 0945 TD/TT: 10/02/24 0957 [employer]: [facility] External Provider IMG XR PROCEDURES Final Result * (ABNORMAL) Vitamin D, 25-Hydroxy, Total, Immunoassay (10/02/2024 9:21 AM EDT) Vitamin D 25-OH Total 21.2(L) >30 ng/mL [facility] Comment: Health Based Reference Values*< 20 ??ng/mL ??Geovbavxg89-95 ng/mL ??Insufficient> 30 ??ng/mL ??Sufficient*Jennifer WOODARD. N Engl J Med. 2007;357:266-280There is no well-established upper level of normal vitamin Dlevels. Some laboratories use 50 ng/mL as an upper limit ofnormal. However, toxicity is patient-dependent and may occurat any level. Careful correlation with the patient'spresentation is necessary and, if there is concern forvitamin D toxicity, treatment should be consideredirrespective of the serum level.Care must be taken in interpreting Vitamin D results fromdifferent laboratories and methodologies. ??Published datademonstrated that results from patients undergoinghemodialysis may show a negative bias when tested withvarious automated 25-OH vitamin D assays when compared toLC- MS/MS.When testing samples from patients whose predominant form ofVitamin D is Vitamin D2, such as patients receiving VitaminD2 supplementation, results that are subtherapeutic shouldbe confirmed with another method such as LC-MS/MS. 10/02/2024 9:21 AM EDT 10/02/2024 9:23 AM EDT Generic External Data Provider LAB BLOOD ORDERAB LES Final Result Performing Organization Address [facility] Co de Phone Number [facility] [address] [place] [phone] * Vitamin B12 (Cobalamin) and Folate Panel, Serum (10/02/2024 9:21 AM EDT) Vitamin B12 433 200 - 900 pg/mL [facility] Comment:NORMAL 200-900 PG/ML INDETERMINATE 160-199 PG/ML DEFICIENT < 160 PG/ML Folate 11.4 > or = 4.0 ng/mL [facility] Comment:Reference Values:> o r = 4.0 ng/mL< 4.0 ng/mL suggests folate deficiency Methotrexate, aminopterin and folinic acid(leucovorin) are chemotherapeutic agents whose molecularstructures are similar to folate; therefore, the Architectfolate assay cannot be used for patients using these drugs. 10/02/2024 9:21 AM EDT 10/02/2024 9:23 AM EDT us Generic External Data Provider LAB BLOOD ORDERAB LES Final Result Performing Organization Address [facility] Co de Phone Number [facility] [address] [place] [phone] * TSH with Reflex to Free T4 (10/02/2024 9:21 AM EDT) TSH reflex Free T4 2.79 0.32 - 4.0 uIU/mL [facility] 10/02/2024 9:21 AM EDT 10/02/2024 9:23 AM EDT us Generic External Data Provider LAB BLOOD ORDERAB LES Final Result Performing Organization Address City/State/[facility] Co de Phone Number [facility] [address] [place] [phone] * (ABNORMAL) CBC auto differential (10/02/2024 9:21 AM EDT) Pathologist [facility] White Blood Count 5.3 4.8 - 10.8 X10*3/uL [facility] Red Blood Count 4.63 4.20 - 5.50 X10*6/uL [facility] Hemoglobin 13.2 12.0 - 16.0 g/dl [facility] Hematocrit 40.2 37.0 - 47.0 % [facility] Mean Corpuscular Volume 86.8 80.0 - 98.0 fL [facility] Mean Corpuscular Hemoglobin 28.5 27.0 - 33.0 pg [facility] Mean Corpuscular HGB Conc 32.8 31.0 - 35.0 g/dl [facility] Red Cell Distribution Width 12.6 11.0 - 16.0 % [facility] Platelet Count 350 160 - 400 X10*3/uL [facility] Mean Platelet Volume 10.0 9.4 - 12.3 fL [facility] Neutrophils Percent Auto 57.9 45 - 73 % [facility] Imm Gran Pct Auto 0.4 0.0 - 0.4 % [facility] Lymphocytes Percent Auto 26.8 20 - 40 % [facility] Monocytes Percent Auto 8.9 2 - 11 % [facility] Eosinophils Percent Auto 5.1(H) 0 - 4 % [facility] Basophils Percent Auto 0.9 0 - 2 % [facility] NRBC Pct Auto 0.0 0.0 - 0.2 /100WBC [facility] Neutrophils Absolute Auto 3.1 2.0 - 8.3 x10*3/uL [facility] Imm Gran Abs Auto 0.02 0.00 - 0.03 X10*3/uL [facility] Lymphocytes Absolute Auto 1.4 1.2 - 4.9 X10*3/uL [facility] Monocytes Absolute Auto 0.5 0.1 - 1.2 X10*3/uL [facility] Eosinophils Absolute Auto 0.3 0.0 - 0.4 X10*3/uL [facility] Basophils Absolute Auto 0.1 0.0 - 0.2 X10*3/uL [facility] NRBC Abs Auto 0.000 0.0 - 0.012 X10*3/uL [facility] 10/02/2024 9:21 AM EDT 10/02/2024 9:23 AM EDT Generic External Data Provider LAB BLOOD ORDERAB LES Final Result Performing Organization Address [facility] Co de Phone Number [facility] [address] [place] [phone] * Iron And Total Iron Binding Capacity (10/02/2024 9:21 AM EDT) Iron 78 30 - 160 mcg/dL [facility] Total Iron Binding Capacity 258 228 - 428 mcg/dL [facility] Percent Iron Saturation 30 15 - 50 % [facility] Unsaturated Iron Binding 180 ug/dL [facility] 10/02/2024 9:21 AM EDT 10/02/2024 9:23 AM EDT us Generic External Data Provider LAB BLOOD ORDERAB LES Final Result Performing Organization Address [facility]/ZIP Co de Phone Number [facility] [address] [place] [phone] * Insulin (10/02/2024 9:21 AM EDT) Pathologist [facility] Insulin 21 2 - 29 uU/mL [facility] Comment:This test was perfor med using the Hawley chemiluminescentmethod. Values obtained from different assay methods cannot beused interchangeably. This insulin assay shows a possiblecross-reactivity with antibodies generated against insulin(immunoreactive insulin and some patients treated withbovine or porcine insulin). Insulin levels may be measuredlower in patients with insulin autoimmune syndrome orfamilial high pro-insulinemia. 10/02/2024 9:21 AM EDT 10/02/2024 9:23 AM EDT Generic External Data Provider LAB BLOOD ORDERAB LES Final Result Performing Organization Address [facility] de Phone Number [facility] [address] [place] [address] [phone] * Zinc (10/02/2024 9:21 AM EDT) [facility] Zinc 72 60 - 130 mcg/dL [facility] Comment:This test was develo ped and its analytical performancecharacteristics have been determined by [employer] [place], [place]. It hasnot been cleared or approved by the U.S. Food and DrugAdministration. This assay has been validated pursuantto the CLIA regulations and is used for clinicalpurposes.THIS TEST WAS PERFORMED AT:[id number] [place] [address]HOXDLPJDANIELA VIGIL MD,PHD 10/02/2024 9:21 AM EDT 10/02/2024 9:23 AM EDT Generic External Data Provider LAB BLOOD ORDERAB LES Final Result Performing Organization Address [facility] de Phone Number [facility] [address] [place] [address] [phone] * (ABNORMAL) Vitamin A (10/02/2024 9:21 AM EDT) Vitamin A (Retinol) 29(A) 38 - 98 mcg/dL [facility] Comment:Vitamin supplementat ion within 24 hours prior toblood draw may affect the accuracy of the results.This test was developed and its analytical performancecharacteristics have been determined by [place] It hasnot been cleared or approved by the U.S. Food and DrugAdministration. This assay has been validated pursuantto the CLIA regulations and is used for clinicalpurposes.THIS TEST WAS PERFORMED AT:[id number] [place] [address]YCJVOYMDANIELA VIGIL MD,PHD 10/02/2024 9:21 AM EDT 10/02/2024 9:23 AM EDT Generic External Data Provider LAB BLOOD ORDERAB LES Final Result Performing Organization Address [facility]/ZIP Co de Phone Number [facility] [address] [place] [phone] * (ABNORMAL) C-reactive Protein (10/02/2024 9:21 AM EDT) [facility] C Reactive Protein 4.19(H) < or = 0.50 mg/dL [facility] 10/02/2024 9:21 AM EDT 10/02/2024 9:23 AM EDT Generic External Data Provider LAB BLOOD ORDERAB LES Final Result Performing Organization Address City/[facility]/ZIP Co de Phone Number [facility] [address] [place] [phone] * Vitamin B1 (10/02/2024 9:21 AM EDT) [facility] Vitamin B1 8 8 - 30 nmol/L [facility] Comment:Vitamin supplementat ion within 24 hours prior toblood draw may affect the accuracy of the results.This test was developed and its analytical performancecharacteristics have been determined by [facility] [place], [place]. It hasnot been cleared or approved by the U.S. Food and DrugAdministration. This assay has been validated pursuantto the CLIA regulations and is used for clinicalpurposes.THIS TEST WAS PERFORMED AT:[id number] [place] [address]QBNXCAGDANIELA VIGIL MD,PHD 10/02/2024 9:21 AM EDT 10/02/2024 9:23 AM EDT Generic External Data Provider LAB BLOOD ORDERAB LES Final Result Performing Organization Address [facility] Co de Phone Number [facility] [address] [place] [phone] * Hemoglobin A1c (10/02/2024 9:21 AM EDT) Hemoglobin A1c 5.2 <6.0 % [facility] Comment:Hemoglobin A1C Refer ence Range Adults: 4.8 - 6.0 % Non diabetic: < 6.0 % Goal: < 7.0 %Additional Action Suggested: > 8.0 %Note: Hemoglobin A1c results are invalid for patients with abnormal amounts of HbF. Blood transfusions may impact the HbA1c concentration in the patient sample. Estimated Average Glucose 103 mg/dL [facility] Comment:eAG = Estimated ave rage glucose which is %A1C expressed asaverage glucose, using the formula of the [id number]-[id number] Glucose study (ADAG), Diabetes Care, Vol.31,#8,Aug. 2007 10/02/2024 9:21 AM EDT 10/02/2024 9:23 AM EDT Generic External Data Provider LAB BLOOD ORDERAB LES Final Result Performing Organization Address [facility] de Phone Number [facility] [address] [place] [phone] * (ABNORMAL) Ferritin (10/02/2024 9:21 AM EDT) Ferritin 286(H) 10 - 122 ng/mL [facility] 10/02/2024 9:21 AM EDT 10/02/2024 9:23 AM EDT us Generic External Data Provider LAB BLOOD ORDERAB LES Final Result Performing Organization Address City/[facility]/ZIP Co de Phone Number [facility] [address] [place] [address] [phone] * (ABNORMAL) Lipid Panel, Standard (10/02/2024 9:21 AM EDT) Triglycerides 141 <150 mg/dL [facility] Comment:Desirable Triglyceri de: less than 150 mg/dLBorderline High Triglyceride 150-199 mg/dLHigh Triglyceride: 200-499 mg/dLVery High Triglyceride: greater than or equal to 5OO mg/dL Cholesterol 182 <200 mg/dL [facility] Comment:Desirable Cholestero l: less than 200 mg/dLBorderline High Cholesterol: 200-239 mg/dLHigh Cholesterol: greater than 239 mg/dL LDL Cholesterol Calculated 112(H) <100 mg/dL [facility] Comment:Desirable LDL: less than 100 mg/dLNear Optimal/Above Optimal LDL: 110- 129 mg/dLBorderline High LDL: 130-159 mg/dLHigh LDL: 160-189 mg/dLVery High LDL: greater than or equal to 190 mg/dL HDL Cholesterol 42 >40 mg/dL [facility] Comment:Desirable HDL: great er than 40 mg/dL Note: This HDL assay may give artificially low results in patients with liver disease. 10/02/2024 9:21 AM EDT 10/02/2024 9:23 AM EDT us Generic External Data Provider LAB BLOOD ORDERAB LES Final Result Performing Organization Address City/[facility]/ZIP Co de Phone Number [facility] [address] [place] [phone] * (ABNORMAL) Comprehensive Metabolic Panel (10/02/2024 9:21 AM EDT) Sodium 139 135 - 145 mmol/L [facility] Potassium 4.1 3.3 - 5.1 mmol/L [facility] Chloride 105 96 - 108 mmol/L [facility] Carbon Dioxide 26 22 - 29 mmol/L [facility] Anion Gap 12 12 - 20 [facility] Urea Nitrogen (BUN) 17(H) 9 - 16 mg/dL [facility] Creatinine, Serum 0.74 0.5 - 1.4 mg/dL [facility] Estimated Glomerular Filt Rate >60 [facility] Comment:Chronic Kidney Disea se: Estimated GFR < 60 mL/min/1.64d1Kawapz Kidney Disease: Estimated GFR < 15 mL/min/1.73m2 Glucose 104 60 - 115 mg/dL [facility] Calcium 9.4 8.4 - 10.2 mg/dL [facility] Bilirubin, Total 0.4 0.0 - 1.0 mg/dL [facility] Aspartate Amino Transferase 136(H) 5 - 31 U/L [facility] Alanine Aminotransferase 186(H) 0 - 31 U/L [facility] Total Protein 8.2(H) 6.5 - 8.0 g/dL [facility] Albumin Level 4.2 3.5 - 5.0 g/dL [facility] Alkaline Phosphatase 67 39 - 117 U/L [facility] 10/02/2024 9:21 AM EDT 10/02/2024 9:23 AM EDT Generic External Data Provider LAB BLOOD ORDERAB LES Final Result [facility] [address] [place] [phone] * Hepatitis A,B,C Profile (07/11/2024 12:00 PM EST) Hepatitis A IgM Nonreactive Nonreactive [facility] Comment:IgM antibodies to [place]ER[place]OD V not detected; does not exclude earlyacute or recovered HAV infection. ~Hepatitis B Surface Antibody NONREACTIVE Nonreactive [facility] Comment:Nonreactive: < 8.00 mIU/mL Hepatitis B Core Antibody Nonreactive Nonreactive [facility] Hepatitis C Antibody Nonreactive Nonreactive [facility] Comment:Antibodies to HCV no t detected; does not exclude early acuteHCV infection. Hepatitis B Surface Ag Negative Negative [facility] Blood Venous blood specimen / Unknown 07/11/2024 12:00 PM EST 07/11/2024 1:22 PM EST us Karla Mckinney MD LAB BLOOD ORDERABLES Final Result Performing Organization Address [facility]/ZIP Co de Phone Number [facility] [address] [place] [phone] * HIV-1/2 Antigen and Antibodies, Fourth Generation, with Reflexes (07/04/2024 11:11 AM EST) HIV AB/AG Nonreactive Nonreactive [facility] Comment:HIV-1 p24 Ag and/or HIV-1/HIV-2 Ab not detected.A test result that is nonreactive does not exclude thepossibility of exposure to or infection with HIV-1 and/orHIV-2. Nonreactive results in this assay for individualswith prior exposure to HIV-1 and/or HIV-2 may be due toantigen and antibody levels that are below the limit ofdetection of this assay.The Comply7 HIV Ag/Ab Combo assay result andsupplemental assay results should be interpreted inconjunction with the patient's clinical presentation,history and other laboratory results. If the results areinconsistent with clinical evidence, additional testing issuggested to confirm the result. Blood Venous blood specimen / Unknown 07/04/2024 11:11 AM EST 07/04/2024 1:03 PM EST us Karla Mckinney MD LAB BLOOD ORDERABLES Final Result Performing Organization Address [facility]/ZIP Co de Phone Number [facility] [address] [place] [phone] * Pap with NG,CT,Trich (12/15/2023 11:00 AM EDT) Trichomonas (NAAT) NOT DETECTED NOT DETECTED [facility] Comment:The analytical perfo rmance characteristics of thisassay have been determined by [employer]. Themodifications have not been cleared or approved bythe FDA. This assay has been validated pursuant to theCLIA regulations and is used for clinical purposes.For additional information, please refer tohttp://education.i[employer]VCloud/faq/Trichomonastma(This link is being provided for information/educational purposes only.)THIS TEST WAS PERFORMED AT:[employer] [place] [id number] SOUTH MD CTNG Ref Lab NOT DETECTED NOT DETECTED [facility] NG Ref Lab NOT DETECTED NOT DETECTED [facility] ThinPrep?? vial Cervix uteri structure / Unknown 12/15/2023 11:00 AM EDT 12/15/2023 11:42 AM EDT Narrative [facility] - 12/18/2023 11:04 PM EDT Was previous PAP abnormal? NoCollection Date: [id number] by: TIMUR Quintanilla: Cervix us Tereza Bowen CN LAB CYTOLOGY ORDERABLES F inal Result [facility] [address] [place] [phone] * ThinPrep Imaging System Pap (12/14/2023 11:00 AM EDT) SOURCE: SEE NOTE [facility] Comment:Cervix Report Status: TNP [facility] Clinical Information: SEE NOTE [facility] Comment:None given LMP: SEE NOTE [facility] Comment:NONE GIVEN Prev. PAP: SEE NOTE [facility] Comment:GN Prev. BX: SEE NOTE [facility] Comment:NONE GIVEN Statement Of Adequacy: SEE NOTE [facility] Comment:Satisfactory for clifton luation.Endocervical/transformation zone component absent. General Categorization: [facility] Interpretation/Result: SEE NOTE [facility] Comment:Cytology Results: Ne gative for intraepitheliallesion or malignancy. Cytology Comment SEE NOTE [facility] Comment:This Pap test has be en evaluated with computerassisted technology. J2Ee Developer: SEE NOTE [facility] Comment:CMB, CT(ASCP) CT Scr eening Location: [employer] [place], [place] [address]Slide preparation performed at: [facility], [address] [place] [address] CLIA No. [id number] Review J2Ee Developer: [facility] Pathologist [facility] PAP Infection [facility] See Note SEE NOTE [facility] Comment:EXPLANATORY NOTE:The Pap is a screening test for cervical cancer. It isnot a diagnostic test and is subject to false negativeand false positive results. It is most reliable when asatisfactory sample, regularly obtained, is submittedwith relevant clinical findings and history, and whenthe Pap result is evaluated along with historic andcurrent clinical information.THIS TEST WAS PERFORMED AT:[facility] [address] [id number] MERATI,MD 12/14/2023 11:0 0 AM EDT 12/15/2023 11:40 AM EDT Narrative [facility] - 12/20/2023 12:03 PM EDT SEE EMR FOR SCANNED REPORTSCREENINGCERVICALINITIAL us Tereza Bowen CNM LAB PATHOLOGY ORDERABLES Final Result [facility] [address] [place] [address] [phone] from Last 3 Months or Most Recently Relevant to Health Maintenance Insurance [facility] C3 [facility] CAREPLUS Care Teams Retail Presentation Specialist Relationship Specialty Start Date End Date Karla Lincoln MD [address] [place] [address] PCP - General Internal Medicine 07/04/24
[2024-10-29 11:43] VITALS: BMI 55.0
--- NOTE | 2024-10-29 14:32 | P.CONAN_ITS ---
Documented by User: Tiffanie Parra NP 10/29/24 14:32 HPI - Anesthesia Eval Consult details Narrative: 24yo F for Upper Endoscopy BMI 55 PMFSH Active Problems Active Problems: All Active Problems Vitamin A deficiency (Acute) Vitamin B12 deficiency (Acute) Vitamin D deficiency (Acute) Asthma (Acute) Morbid obesity (Acute) Past Medical History Medical History Asthma Morbid obesity Family History Family History Mother Arthritis Father No problems noted. Surgical History Surgical History No history of previous surgery Social History Social History Alcohol intake: never Patient Tobacco Use Status: Never used Tobacco Use of substances other than those prescribed or required for medical reasons: No Are you DNR?: No Advance Directives: No Advance Directives Information Provided: Yes Meds Allergies Allergy/AdvReac Type Severity Reaction Status Date / Time No Known Allergies Allergy Verified 10/31/24 07:37 Home Medications ?Medication ?Instructions ?Recorded ?Confirmed ?Last Taken ?Type albuterol sulfate 90 mcg/actuation 2 puff inhalation Q6H PRN wheezing 07/15/24 10/31/24 Unknown History aerosol inhaler (Ventolin HFA) vitamin with calcium 1 tab PO DAILY 07/15/24 10/31/24 Unknown History no.72-iron 27 mg-folic acid 1 mg tablet ( Vitamins Plus Low Iron) Exam Height,Weight and Vital Signs: Height 5 ft 1 in Weight 131.995 kg Narrative Narrative: EKG 09/2024 Vent. Rate : 87 BPM Atrial Rate : 87 BPM P-R Int : 134 ms QRS Dur : 72 ms QT Int : 376 ms P-R-T Axes : 25 39 10 degrees QTcB Int : 452 ms Normal sinus rhythm with sinus arrhythmia Normal ECG No previous ECGs available Assessment and Plan Assessment Anesthesia Assessment: Chart Reviewed Documented by User: Margot Castro MD 10/31/24 07:59 [facility] Past Medical History Medical History Asthma Morbid obesity Family History Family History Mother Arthritis Father No problems noted. Family history of problems with anesthesia: No Surgical History Surgical History No history of previous surgery History of Problems with Anesthesia: No Social History Social History Alcohol intake: never Patient Tobacco Use Status: Never used Tobacco Use of substances other than those prescribed or required for medical reasons: No Are you DNR?: No Advance Directives: No Advance Directives Information Provided: Yes Meds Allergies Allergy/AdvReac Type Severity Reaction Status Date / Time No Known Allergies Allergy Verified 10/31/24 07:37 Home Medications ?Medication ?Instructions ?Recorded ?Confirmed ?Last Taken ?Type albuterol sulfate 90 mcg/actuation 2 puff inhalation Q6H PRN wheezing 07/15/24 10/31/24 Unknown History aerosol inhaler (Ventolin HFA) vitamin with calcium 1 tab PO DAILY 07/15/24 10/31/24 Unknown History no.72-iron 27 mg-folic acid 1 mg tablet ( Vitamins Plus Low Iron) Exam Airway Mallampati Class: III TM Dist: <=3cm Neck ROM: Full Heart: rrr Lungs: cta Assessment and Plan Assessment Anesthesia Assessment: Anesthesia Plan Discussed Final Anesthetic Review Family History of Problems with Anesthesia: No History of Problems with Anesthesia: No NPO: Yes ASA Class: III Final Preanesthetic Review: No Changes in Pt Med Stat, Meds/Allgs Chart Reviewed, Consent Obtained/Reviewed and Anes Risks/Benef Reviewed Patient Risk: Intermediate Procedure Risk: Low Anesthetic Plan Anesthetic Plan: GA and MAC: Disposition: Standard PACU
[2024-10-31 07:42] VITALS: BMI 53.1
[2024-10-31 07:58] LABS: UPreg QC Valid YES
[2024-10-31 08:00] VITALS: BP 113/68; PULSE 74; RESP 16; TEMP 36.4; O2SAT 99
[2024-10-31 08:00] LABS: Urine Pregnancy NEGATIVE (NEGATIVE)
[2024-10-31] MEDS: Lactated Ringers 1,000 ML 80 ML IVCONT (08:02)
--- NOTE | 2024-10-31 08:04 | MHC.SHP ---
Pre-Procedural Eval Section A - 24 Hr Update-Section A only Date of Service: 10/31/24 The patient is an INPATIENT: No The patient has been examined within 24 hours of the surgical procedure. The History & Physical has been completed within 30 days and I have reviewed it.: Yes Section B - Complete if H&P > 30 days Chief Complaint: Morbid (severe) obesity due to excess calories Relevant Family History (Specify if Yes): No Relevant Social History: None Present Medications: None Medical History: No relevant PMH History of Previous Operations: No relevant previous surgery Allergies: Allergies Allergy/AdvReac Type Severity Reaction Status Date / Time No Known Allergies Allergy Verified 10/31/24 07:37 Review of Systems Sugical H&P ROS: Negative: Constitution, Cardiovascular, Respiratory, Neurological, Psychiatric, Hem-Onc, Allergic/Immunologic, Gastrointestinal, Genitourinary, Musculoskeletal, Integumentary, Endocrine and Eyes/Ears/Nose/Throat Exam Surgical H&P Exam: Normal: HEENT, Normal: Heart, Normal: Lungs, Normal: Extremities, Normal: Abdomen, Normal: Skin and Normal: Neurological Plan Diagnosis/Plan: Unchanged (EGD to assess the stomach's anatomy. Risks of bleeding and perforation were discussed with the patient and she is in agreement with the plan.) I have reviewed the history and physical and performed a pertinent physical examination on my patient. No changes have occurred unless specified. Time Spent With Patient Time: Total time managing care of this patient today ____ minutes.
[2024-10-31 08:50] VITALS: BP 119/73; PULSE 85; RESP 18; TEMP 36.6; O2SAT 100
--- NOTE | 2024-10-31 08:53 | PM.OP ---
Brief Operative Note Date of Service: 10/31/24 Pre-op diagnosis: Morbid obesity Post-op diagnosis: same Procedure: PROCEDURE DATE: 10/31/2024 PREOPERATIVE DIAGNOSIS: Morbid obesity POSTOPERATIVE DIAGNOSIS: ?Same as above. 1) normal endoscopy PROCEDURE: [id number] with biopsies Surgeon: Rosy Ibarra M.D.. Ph.D. Search Engine Optimization Manager: None ? Anesthesia: IV sedation Estimated blood loss: ?Minimal FINDINGS AND PROCEDURE: ? OPERATIVE INDICATIONS: ?The patient is a 24 year old female known to me who is interested in bariatric surgery. Based on this information I recommended an upper endoscopy to evaluate the stomach's anatomy. Risks and complications of the surgery were discussed with the patient in advance particularly the possibility of perforation or bleeding that may require surgical intervention. The patient understood the risks and was in agreement with the plan. ? PROCEDURE: After informed consent was obtained by the patient, the patient was ?transferred to the Operating Room and was placed in the supine position.? After successful induction of IV sedation, a mouth block was inserted and the patient was placed in the left lateral decubitus position. An upper endoscopy was performed next, the oropharynx and esophagus appeared within the normal limits. There was no hiatal hernia. The z-line was smooth. Two biopsies were obtained from the distal esophagus 2-3 cm proximal to the GE junction and two additional biopsies from the GE junction. The stomach was entered and it appeared to be of normal size. There was no gastritis. There was no stricture or ulcer. A biopsy was obtained from the gastric fundus and the antrum. No significant bleeding was noted from any of the biopsy sites. Retroflexion of the scope confirmed a normal GE junction. The scope was then advanced into the duodenum which appeared to be normal as well. At that point the duodenum ?and the stomach were decompressed and the scope was withdrawn from the patient's mouth. The patient extubated and was transferred in stable condition to the Recovery Room for further care. I was present and performed all steps of the procedure. There were no residents to assist with this case. Michele Ibarra M.D., Ph.D. Surgeon: Arsalan Ibarra MD Anesthesia: MAC Was an Search Engine Optimization Manager used for this Procedure?: No Estimated blood loss (mL): 0 IV fluids (mL): 400 Urine output (mL): 0 (No Mclean to record output) Pathology: other (1) antrum x1, 2) fundus x1, 3) GE junction x2, 4) distal esophagus x2) Condition: stable Disposition: PACU
[2024-10-31 08:55] VITALS: BP 109/75; PULSE 85; RESP 18; O2SAT 97
[2024-10-31 09:03] VITALS: BP 125/77; PULSE 85; RESP 18; O2SAT 97
[2024-10-31 09:08] VITALS: BP 123/86; PULSE 78; RESP 18; TEMP 36.2; O2SAT 98
== END 2024-10-31 09:44 | disposition home or self-care (01) ==
PROVIDERS: Nurse Practitioner; PCP Internal Medicine; Visit Provider Surgery
PROC: 0DJ08ZZ Inspection of Upper Intestinal Tract, Via Natural or Artificial Opening Endoscopic (ICD-10-PCS; CPT 43235; principal; 2024-10-31 08:50)
DX: E66.01 Morbid (severe) obesity due to excess calories (principal); Z68.43 Body mass index [BMI] 50.0-59.9, adult; J45.909 Unspecified asthma, uncomplicated; Z79.899 Other long term (current) drug therapy
CPT/HCPCS: 43239; 81025; 88305; 88313; 88342; J2003; J2704

== ENCOUNTER → 2024-10-31 07:14 | Outpatient (BNV) | payer MEDICAID, SELFPAY | PROVIDERS: PCP Internal Medicine; Visit Provider Surgery | DX: E66.01 Morbid (severe) obesity due to excess calories (principal); E66.813 Obesity, class 3; Z68.43 Body mass index [BMI] 50.0-59.9, adult | CPT/HCPCS: 43239 ==

== ENCOUNTER 2024-11-05 10:00 | Outpatient (AMB) | payer OTHER, SELFPAY ==
--- NOTE | 2024-11-05 10:00 | A.OFFWM_ITS ---
Intake Intake Visit Reasons: VIDEO BH F/U Allergies No Known Allergies Allergy (Verified 10/31/24 07:37) [facility] Medical History Asthma Morbid obesity Surgical History No history of previous surgery Family History Mother Arthritis Father No problems noted. Social History Alcohol intake: never Patient Tobacco Use Status: Never used Tobacco Behavioral Health Assessment Weight Management Therapy Therapy Notes Details The patient is a 24-year-old female presenting for her second behavioral health visit as part of the surgical weight loss program. She is seeking a comprehensive lifestyle change to improve her overall health and well-being. The patient recognizes that her challenges are primarily related to unhealthy eating habits and lack of physical activity. She expressed a strong desire to reach a healthier weight, feel more physically comfortable, and ultimately prepare for motherhood in the future. She began the program on 07/25/2024 at a starting weight of 291 lbs. As of 11/05/2024, her reported weight is 276 lbs, indicating steady and consistent progress toward her pre-surgical goal. The patient denies any history of mental health treatment, psychiatric hospitalization, or behavioral health crises. She also denies any current or past suicidal ideation (SI), suicide attempts (SA), self-harm, or intent to harm others. There is no reported history of substance use. Screening tools, including the Binge Eating Scale (BES), indicate low risk for disordered eating, and PHQ-9 scores show no current symptoms of depression. There is no clinical evidence of emotional or stress-related eating at this time. The mental status exam was within normal limits, suggesting intact cognitive and emotional functioning without impairment. Following a comprehensive assessment, the patient demonstrates no psychological or behavioral contraindications and is cleared to proceed with bariatric surgery. Presenting Concerns Referral Source WMP- Provider. Reason for referral Completion of behavioral health assessment as part of process for weight-loss surgery. Precipitating Event Obesity and issues getting . Living Situation Current Living Situation Rent At risk of losing current housing? No Satisfied with current living situation? Yes Comments PT lives with her partner, parents-in law and sister and brother-in law. Food/Weight/Diet Expectations of change The patient began the program on 07/25/2024 at a starting weight of 291 lbs. The initial goal was to lose 10% of her body weight (~31 lbs) prior to surgery, with a target weight of 260 lbs. As of 10/21/2024, the patient weighed 285 lbs, and as of 11/05/2024, her weight was 276 lbs, reflecting steady progress. The patient expressed a desire to reach a healthy weight, feel more physically comfortable, and improve her overall well-being. She also shared that an important personal goal is to become a mother in the future. PT is implementing the following: Current meal plan: 2 protein shakes, 2 protein bars, and one meal per day. Exercise plan: Gym membership. Treadmill and elliptical for 30 minutes each, 5 days a week. Also doing daily outdoor walks. Scale: yes Communication with provider: yes on Mondays. History/Relationship with food The patient reports a long-standing pattern of unhealthy eating habits beginning in early life. Her previous diet included consuming multiple cans of soda daily and frequent reliance on fast food, often having meals such as Srivastava's for breakfast, lunch, and dinner. She did not follow a regular meal schedule and lacked variety in her diet, with minimal intake of fruits, vegetables, and salads. Example of meals before starting the program: Breakfast: @10am - Eggs with bread, McChicken Lunch: @2pm Rice - beans with Pork chops. Mashed potatoes with corned beef. Dinner: None set. Would snack chips, cookies, and chocolate. If hungry would order fast food normally around 10pm. Snacks: mostly trough the day. Drinks/Liquids: 'Soda: 5-6 cans at day. Water: 1 bottle at day. Coffee: 1 cup in the morning w/ milk and sugar. energy drink: none. Juice: rarely. Walnut juice 1-2 cups 1-3 x week. Tea: none. History/Relationship with weight The patient denies being overweight during childhood. She reports significant weight gain beginning approximately seven years ago, following her move from [place] to [place]. During this transition, her eating habits changed, and she became less physically active, discontinuing participation in sports and regular exercise. Over the past 10 years, her weight has fluctuated, with a reported lowest weight of 150 lbs and a highest weight of 298 lbs. History/Relationship with dieting Self-diets. Meal schedule with 3 meals and 3 snacks. Binge Eating Do you frequently eat large amounts of food in short periods of time, not feeling physically hungry? No Do you feel out of control when you eat a large amount of food in a short period of time? No Do you eat large amounts of food rapidly and typically alone? No Night Eating Do you wake up at least once during the night to eat? No If you wake up in the night, do you find that it is necessary to eat something in order to fall back asleep? No Do you have little or no appetite in the morning and feel very hungry in the evening, often overeating between dinner and when you go to bed? Yes Social History Family history and relationship PT has been in a relationship for over 2 years, and they have lived together 2 years. They don't have children, her partner has a son. PT has 1 brother who lives in [place], her parents are alive living in [place]. 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 Developmental history and status Currently WNL Social support Partner, his family, and her family. Community support PCP who referred her to the program. Mu-Ism/Spirituality None Cultural/Ethnic information Born and raised in [place]. Moved to [place] at age 17, been in [place] 2 years ago. Legal Involvement and History Current or historical involvement with the legal system? None reported. Education Highest grade completed HS. Preferred learning style Learn by doing and Visual Currently enrolled in educational program? No Interested in further educational program? 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 She likes cooking Employment Employment Status Unemployed (1 year ago. ) Wants help to find employment? No Meaningful activities play volleyball, Tv shows, reading. Financial Situation Describe current financial situation Comfortable Financial assistance? Food [place] and Other (Insurance/Visualtising.) Service Service? No Mental Health and Addiction Treatment Current/Past substance abuse? No Comments Alcohol: couple times at year, about 1 time every 4-5 months. When drink she does 2-3 drinks (beer) Cigarettes/Tobacco: None. Cannabis/Edibles: None. Current/Past addictive behavior concerns? No Psychiatric history Patient reports no prior experience with counseling and denies any history of mental health crises or psychiatric hospitalization. She reports no history or current concerns related to suicidal ideation, self-harm, or harm to others. Medical and Physical Health Summary Additional Medical History not covered in history None additional. Sexual History concerns Fertility issues. Physical exam in the last year? Yes Pain Screening Current pain? No Pain in the last few months? No Medications Is the patient compliant with medications? Yes Does the patient have Thomson Guardian in place? Not applicable Does the patient use complimentary health approaches? No Trauma/Abuse History0 History of trauma? No Questionnaires PHQ-9 Over the last 2 weeks, how often have you been bothered by any of the following problems? 1. Little interest or pleasure in doing things: not at all 2. Feeling down, depressed, or hopeless: not at all 3. Trouble falling or staying asleep, or sleeping too much: not at all 4. Feeling tired or having little energy: not at all 5. Poor appetite or overeating: not at all 6. Feeling bad about yourself - or that you are a failure or have let yourself or your family down: not at all 7. Trouble concentrating on things, such as reading the newspaper or watching television: not at all 8. Moving or speaking so slowly that other people could have noticed. Or the opposite - being so fidgety or restless that you have been moving around a lot more than usual: not at all 9. Thoughts that you would be better off or of hurting yourself in some wa y: not at all Total score: 0 Depression Screening Interpretation: Negative Depression Screening Done: Yes 47772 - PHQ-9 Billing: Yes Source: Developed by Drs. Juan A Escobar, Jasmin Freed, Enrique Clarke and colleagues, with an educational darren from [employer]. Binge Eating Scale Group 1 A. I don't feel self-conscious about my wt. or body size when I'm with others. B. I feel concerned about how I look to others, but it normally does not make me fell disappointed with myself C. I do get self-conscious about my appearance and wt. which makes me feel disappointed in myself. D. I feel very self-conscious about my wt. and frequently I feel intense shame and disgust for myself. I try to avoid social contacts because of my self- consciousness. Response Group 1: A Group 2 A. I don't have any difficulty eating slowly in the proper manner. B. Although I seem to gobble down foods, I don't end up feeling stuffed because of eating to much. C. At times, I tend to eat quickly and then, I feel uncomfortably full afterwards. D. I have the habit of bolting down my food, without really chewing it. When this happens I usually feel uncomfortably stuffed because I've eaten to much. Response Group 2: B Group 3 A. I feel capable to control my eating urges when I want to. B. I feel like I have failed to control my eating more than the average person. C. I feel utterly helpless when it comes to feeling in control of my eating urges. D. Because I feel so helpless about controlling my eating I have become very desperate about trying to get control. Response Group 3: A Group 4 A. I don't have the habit of eating when I'm bored. B. I sometimes eat when I'm bored, but often I'm able to get busy and get my mind off food. C. I have a regular habit of eating when I'm bored, but occasionally, I can use some other activity to get my mind off eating. D. I have a strong habit of eating when I'm bored. Nothing seems to help me breath the habit. Response Group 4: C Group 5 A. I'm usually physically hungry when I eat something. B. Occasionally, I eat something on impulse even though I really am not hungry. C. I have the regular habit of eating foods, that I might not really enjoy, to satisfy a hungry feeling even though physically, I don't need the food. D. Although I'm not physically hungry, I get a hungry feeling in my mouth that only seems to be satisfied when I eat a food, like sandwich, that fills my mouth. Sometimes, when I eat the food to satisfy my mouth hunger, I then spit the food out so I won't gain weight. Response Group 5: B Group 6 A. I don't feel any guilt or self-hate after I overeat. B. After I overeat, occasionally I feel guilt or self-hate. C. Almost all the time I experience strong guilt or self-hate after I overeat. Response Group 6: A Group 7 A. I don't lose total control of my eating when dieting even after periods when I overeat. B. Sometimes when I eat a forbidden food on a diet, I feel like I blew it and eat even more. C. Frequently, I have the habit of saying to myself, I've blown it now, why not go all the way, when I overeat on a diet. When that happens I eat more. D. I have a regular habit of starting a strict diets for myself but I break the diets by going on an eating binge. My life seems to be either a feast or famine. Response Group 7: B Group 8 A. I rarely eat so much food that I feel uncomfortably stuffed afterwards. B. Usually about once a month, I each such a quantity of food, I end up feeling very stuffed. C. I have regular periods during the month when I eat large amounts of food, either at mealtime or at snacks. D. I eat so much food that I regularly feel quite uncomfortable after eating and sometimes a bit nauseous. Response Group 8: C Group 9 A. My level of calorie intake does not go up very high or go down very low on a regular basis. B. Sometimes after I overeat, I will try to reduce my caloric intake to almost nothing to compensate for the excess calories I've eaten. C. I have a regular habit of overeating during the night. It seems that my routine is not to be hungry in the morning but overeat in the evening. D. In my adult years, I have had week-long periods where I practically starve myself. This follows periods when I overeat. It seems I live a life of either feast or famine. Response Group 9: A Group 10 A. I usually am able to stop eating when I want to. I know when enough is enough. B. Every so often, I experience a compulsion to eat which I can't seem to control. C. Frequently, I experience strong urges to eat which I seem unable to control, but at other times I can control my eating urges. D. I feel incapable of controlling urges to eat. I have a fear of not being able to stop eating voluntarily. Response Group 10: A Group 11 A. I don't have any problem stopping eating when I feel full. B. I usually can stop eating when I feel full but occasionally overeat leaving me feeling uncomfortably stuffed. C. I have a problem stopping eating once I start and usually I feel uncomfortably stuffed after I eat a meal. D. Because I have a problem not being able to stop eating when I want, I sometimes have to induce vomiting to relieve my stuffed feeling. Response Group 11: A Group 12 A. I seem to eat just as much when I'm with others, Family social gatherings as when I'm by myself. B. Sometimes, when I'm with other persons, I don't eat as much as I want to eat because I'm self-conscious about my eating. C. Frequently, I eat only a small amount of food when others are present, because I'm very embarrassed about my eating. D. I feel so ashamed about overeating that I pick times to overeat when I know no one will see me. I feel like a closet eater. Response Group 12: C Group 13 A. I eat three meals a day with only an occasional between meal snack. B. I eat 3 meals a day, but I also normally snack between meals. C. When I am snacking heavily, I get in the habit of skipping regular meals. D. There are regular periods when I seem to be continually eating, with no planned meals. Response Group 13: D Group 14 A. I don't think much about trying to control unwanted eating urges. B. At least some of the time, I feel my thoughts are pre-occupied with trying to control my eating urges. C. I feel that frequently I spend much time thinking about how much I ate or about trying not to eat anymore. D. It seems to me that most of my waking hours are pre-occupied by thoughts about eating or not eating. I feel like I'm constantly struggling not to eat. Response Group 14: C Group 15 A. I don't think about food a great deal. B. I have strong craving for food but they last only for brief periods of time. C. I have days when I can't seem to think about anything else but food. D. Most of my days seem to be pre-occupied with thoughts about food. I feel like I live to eat. Response Group 15: A Group 16 A. I usually know whether or not I'm physically hungry. I take the right portion of food to satisfy me. B. Occasionally, I feel uncertain about knowing whether or not I'm physically hungry. A these times it's hard to know how much food I should take to satisfy me. C. Even though I might know how many calories I should eat, I don't have any idea what is a normal amount of food for me. Response Group 16: A Binge Eating Score: 14 Score less than 17 Minimal Risk Score between 18-26 Moderate Risk Score between 27-46 High Risk Assessment & Plan Assessment & Plan (1) Adjustment disorder: Code(s): F43.20 - Adjustment disorder, unspecified (2) Inappropriate diet or eating habits: Code(s): Z72.4 - Inappropriate diet and eating habits (3) Pre-bariatric surgery psychological evaluation: Code(s): Z71.89 - Other specified counseling Plan The patient has been cleared from a behavioral health standpoint. She is scheduled to return for a behavioral health screening 1-3 weeks postoperatively. Next krysten: 1-3 wks PO. Telehealth Telehealth [facility]health [facility] Location of provider rendering services: other Location of patient: address on file Patient Identification confirmed using: Name, : Yes Telehealth method: video Patient verbally consented to treatment: Yes Patient verbally consented to billing insurance company: Yes Patient informed of any privacy concerns related to visit: Yes Minutes spent on Phone/Video with Pt.: 60 Coding Level of Care Code Established Pt Tele Psytx >53 mins (61670) Patient Type Established Diagnoses Adjustment disorder F43.20 Inappropriate diet or eating habits Z72.4 Pre-bariatric surgery psychological evaluation Z71.89 Additional Codes PHQ-9 - 25734 - PHQ-9 Billing: Yes ([id number]) Time Spent (min) 60
--- OUTSIDE RECORDS SUMMARY | 2024-11-05 11:35 | XMS_ITS | Encounter Summary ---
Author Organization [email or web address] Address [address] [place] [address] Care Team Providers Care Cultural Centre Manager Name Role Phone Karla Lincoln MD Primary Care Provide r Encounter Details Date Type Department Care Team (Late st Contact Info) Description 10/31/2024 Orders Only GENERIC EXTERNAL DATA DEPARTMENT Provider, Generic External Data Social History Tobacco Use Types Packs/Day Years [...] Description 01/02/2025 10:45 AM EDT Office Visit [facility] [address] [place], [place] [phone] Karla Lincoln MD [address] [place] [address] documented as of this encounter Procedures Procedure Name Priority Date/Time Associated Diagnosis Comments HEMATOXYLIN AND EOSIN STAIN Routine 10/31/2024 8:44 AM EDT HCG, QL, URINE Routine 10/31/2024 7:45 AM EDT documented in this encounter Results * Hematoxylin and Eosin Stain (10/31/2024 8:44 AM EDT) 10/31/2024 8:44 AM EDT 10/31/2024 10:40 AM EDT [facility] - 11/04/2024 10:14 AM EDT ----- ------- Name: Saniya Reagan ? Age/Sex: 24/F ? : 2000 Unit#: [id number] ?? Attend Dr: Arsalan Ibarra MD ?Re10/31/24 ?Status: DEP SDC ? Location: HO.SSS ?Disch: ? ----- ------- SPEC : [id number] ? RECD: 10/31/24-1040 ? STATUS: ??SOUT ? REQ NUM: [id number] ? NIKKI: 10/31/24-44 ? SUBM DR: Arsalan Ibarra MD ? ENTERED: ??10/31/24-1118 ?SP TYPE: Surgical ? OTHR DR: Karla Lincoln MD ? ORDERED: ??HE Stain/6, Gross Micro L4/4, IHC/2, Special st. 2/3, H. pylori/2, AB/PAS/3 ? Diagnosis ?? A. ??Stomach, antrum, biopsy: ?- Antral-type mucosa with mild chronic inactive inflammation. ?- Rare forms suspicious for H. pylori identified. ? B. ??Stomach, fundus, biopsy: ??Oxyntic mucosa with mild chronic inactive inflammation; no ?? Helicobacter organisms seen. ? C. ??EG junction, biopsy: ?- Cardiofundic-type mucosa with mild chronic inactive inflammation; no intestinal ?? metaplasia seen. ?- No squamous epithelium identified. ? D. ??Esophagus, biopsy: ??Squamous epithelium within normal limits; no inflammation seen. ?Clinical History Pre-Op Dx: ??Morbid (severe) obesity due to excess calories Post-Op Dx: Normal endoscopy ?Microscopic Description A-D. ??Microscopic sections examined. ??No metaplastic changes are seen, supported by AB/PAS stains (A, B and C); rare forms suspicious for H. pylori are present in A, but not seen in B, supported by H. pylori immunostain. ? Material Received ?? A. Antrum ?? B. Fundus ?? C. EG junction ?? D. Esophagus ? Gross Description Received in four parts. Part A: ??Received in formalin labeled ?antrum? is a 0.25 cm koo-pink irregular tissue fragment, submitted in toto in a cassette labeled A. Part B: ??Received in formalin labeled ?fundus? is a 0.5 cm koo-pink irregular tissue fragment, submitted in toto in a cassette labeled B. ? CONTINUED ON NEXT PAGE ----- ------- Name: Saniya Reagan ? Age/Sex: 24/F ? : 2000 Unit#: [id number] ?? Attend Dr: Arsalan Ibarra MD ?Re10/31/24 ?Status: DEP SDC ? Location: HO.SSS ?Disch: ? ----- ------- SPEC : [id number] ? RECD: 10/31/24-1040 ? STATUS: ??SOUT ? REQ NUM: [id number] ? NIKKI: 10/31/24-0844 ? SUBM DR: Arsalan Ibarra MD ? ENTERED: ??10/31/24-1118 ?SP TYPE: Surgical ? OTHR DR: Karla Lincoln MD ? ORDERED: ??HE Stain/6, Gross Micro L4/4, IHC/2, Special st. 2/3, H. pylori/2, AB/PAS/3 ? Gross Description ?(Continued) Part C: ??Received in formalin labeled EG junction? are 2 koo-pink irregular tissue fragments each measuring 0.2 cm, submitted in toto in a cassette labeled C. Part D: ??Received in formalin labeled ?esophagus? are 2 storm-pink irregular tissue fragments each measuring 0.25 cm, submitted in toto in a cassette labeled D. ??CEDS Special studies ordered and performed: Immunostain for H. pylori on A and B; AB/PAS stains on A, B and C Copies To: ?? Karla Lincoln MD ?? [facility] ?? [address] ?? [place] [address] ?? [phone] ?? Arsalan Ibarra MD ?? [facility] ?? [address] ?? [place] [address] ?? [phone] ----- ------- Signed (signature on file) Yonny Vanegas MD 11/04/24 1014 ? ----- ------- ? END OF REPORT ? us Generic External Data Provider LAB BLOOD ORDERAB LES Final Result [facility] [address] [place] [address] [phone] * HCG, Qualitative, Urine (10/31/2024 7:45 AM EDT) Urine NEGATIVE NEGATIVE [facility] Comment:This test was develo ped to detect early . Falsenegative results may occur after the 5th - 7th week ofpregnancy when using this test method. If clinicallyindicated, consider a serum hCG. 10/31/2024 7:45 AM EDT 10/31/2024 7:54 AM EDT us Generic External Data Provider LAB URINE ORDERAB LES Final Result Performing Organization Address City/State/[facility] Co de Phone Number [facility] [address] [place] [phone] documented in this encounter Visit Diagnoses Not on filedocumented in this encounter Additional Health Concerns Assessment Noted Time PHQ-9 Depression Total Score: 6 07/04/19 25 10:15 AM EST documented as of this encounter Care Teams Cultural Centre Manager Relationship Specialty Start Date End Date Karla Lincoln MD [address] [place] [address] PCP - General Internal Medicine 07/04/24 documented as of this encounter
--- OUTSIDE RECORDS SUMMARY | 2024-11-05 11:35 | XMS_ITS | Encounter Summary ---
Author Organization [employer] Address [address] [place] [address] Care Team Providers Care Ceramic Tile Installer Name Role Phone Karla Lincoln MD Primary Care Provide r Reason for Visit * Reason Onset Date Comments Med Refill 10/02/2024 Encounter Details Date Type Department Care Team ([facility] st Contact Info) Description 10/02/[address] [facility] [address] [place] [address] Tereza Bowen, [facility] [address] [place] [address] Social History Tobacco Use Types Packs/Day Years [...] Description 01/02/2025 10:45 AM EDT Office Visit [facility] [address] [place] [address] Karla Lincoln MD [address] [place] [address] documented as of this encounter Visit Diagnoses Not on filedocumented in this encounter Additional Health Concerns Assessment Noted Time PHQ-9 Depression Total Score: 6 07/04/19 10:15 AM EST documented as of this encounter Care Teams Ceramic Tile Installer Relationship Specialty Start Date End Date Karla Lincoln MD [address] [place] [phone] PCP - General Internal Medicine 07/04/24 documented as of this encounter
--- OUTSIDE RECORDS SUMMARY | 2024-11-05 11:35 | XMS_ITS | Encounter Summary ---
Author Organization [facility] Address [address] [place] [address] Care Team Providers Care Police Or Patrol Park Officer Name Role Phone Karla Lincoln MD Primary Care Provide r Encounter Details Date Type Department Care Team (Late Contact Info) Description 01/08/2024 Orders Only [facility] [address] [place] [phone] Tereza Bowen CNM [address] [place] [address] Social History Tobacco Use Types Packs/Day Years [...] Description 01/02/2025 10:45 AM EDT Office Visit [facility] [address] [place] [id number] Karla Lincoln MD [address] [place] [phone] documented as of this encounter Visit Diagnoses Not on filedocumented in this encounter Care Teams Police Or Patrol Park Officer Relationship Specialty Start Date End Date Karla Lincoln MD [address] [place] [phone] PCP - General Internal Medicine 07/04/24 documented as of this encounter
--- OUTSIDE RECORDS SUMMARY | 2024-11-05 11:35 | XMS_ITS | Clinical Summary ---
Author Organization [employer] Address [address] [place] [address] Care Team Providers Care Appeals Writer Name Role Phone Karla Lincoln MD Primary [...] Encounters Date Type Department Care Team Description 10/31/2024 Orders Only GENERIC EXTERNAL DATA DEPARTMENT Provider, Generic External Data 10/25/2024 Telephone [facility] [address] [place] [address] Tereza Bowen CNM Chart Prep 10/24/2024 Travel 10/02/2024 Refill [facility] [address] [place] [address] Tereza Bowen CNM 10/02/2024 Orders Only GENERIC EXTERNAL DATA DEPARTMENT Provider, Generic External Data 09/12/2024 Telephone [facility] [address] [place] [address] Karla Lincoln MD Call Back Request 09/05/2024 Telephone [facility] [address] [place] [address] Karla Lincoln MD Nurse Triage 08/30/2024 Population Health Risk Score [facility] () Department [address] [place] [phone] Provider, Population Health Generic from Last 3 Months Immunizations Immunization Administration Dates Next Due Influenza, seasonal, injectable, [...] Office Visit [facility] [address] [place] [address] Karla Lincoln MD [address] [place], [place] [phone] Health Maintenance Due Date Last Done Comments HPV Vaccines (1 - 3-dose series) 2016 Meningococcal B Vaccine (1 o f 2 - Standard) 2017 DTaP/Tdap/Td Vaccines (1 - Tdap) 2020 Hepatitis [...] Screening 07/04/2025 07/04/2024 Tobacco Screening 07/04/2025 07/04/2024 Disability Screening 10/24/2025 10/24/2024 Pap Smear 12/13/2026 12/14/2023 Lipid Panel 10/02/2029 [...] QL, URINE Routine 10/31/2024 7:45 AM EDT XR CHEST 2 VIEWS Routine 10/02/2024 9:45 [...] (BMI) of 50.0 to 59.9 in adult ([facility]) CHLAMYDIA/N. GONORRHOEAE AND T. VAGINALIS RNA, QUAL,TMA Routine 12/15/2023 11:00 AM EDT Routine cervical smear Encntr screen for infections w sexl mode of transmiss [facility] PAP Routine 12/14/2023 11:00 AM EDT from Last 3 Months or Most Recently Relevant to Health Maintenance Results * Hematoxylin and Eosin Stain (10/31/2024 8:44 AM EDT) 10/31/2024 8:44 AM EDT 10/31/2024 10:40 AM EDT [facility] - 11/04/2024 10:14 AM EDT ----- ------- Name: Saniya Reagan ? Age/Sex: 24/F ? : 2000 Unit#: [id number] ?? Attend Dr: Arsalan Ibarra MD ?Re10/31/24 ?[place] [facility] [place] [facility] ?Disch: ? ----- ------- SPEC : [id number] ? RECD: 10/31/24-1040 ? STATUS: ??SOUT ? REQ NUM: [id number] ? NIKKI: 10/31/24-44 ? SUBM DR: Arsalan Ibarra MD ? ENTERED: ??10/31/24-8 ?SP TYPE: Surgical ? OTHR DR: Karla [...] ? Age/Sex: 24/F ? : 2000 Unit#: [id number] ?? Attend Dr: Arsalan Ibarra MD ?Re10/31/24 ?Status: DEP SDC ? Location: HO.[facility] ?Disch: ? ----- ------- SPEC : [id number] ? RECD: 10/31/24 ? STATUS: ??SOUT ? REQ NUM: [id number] ? NIKKI: 10/31/24 ? SUBM DR: Arsalan Ibarra MD ? ENTERED: ??10/31/24 ?SP TYPE: Surgical ? OTHR DR: Karla [...] To: ?? Karla Lincoln MD ?? [facility] ?? [address] [facility] ?? [place] [address] ?? [phone] ?? Arsalan Ibarra MD ?? [facility] ?? [address] ?? [place] [address] ?? [phone] ----- ------- Signed (signature on file) Yonny Vanegas MD 11/04/24 1014 ? ----- ------- ? END OF REPORT ? Generic External Data Provider LAB BLOOD ORDERAB LES Final Result Performing Organization Address [facility] de Phone Number [facility] [address] [place], [place] [phone] * HCG, Qualitative, Urine (10/31/2024 7:45 AM EDT) [facility] Urine NEGATIVE NEGATIVE [facility] Comment:This test was develo ped to detect early . Falsenegative results may occur after the 5th - 7th week ofpregnancy when using this test method. If clinicallyindicated, consider a serum hCG. 10/31/2024 7:45 AM EDT 10/31/2024 7:54 AM EDT Generic External Data Provider LAB URINE ORDERAB LES Final Result Performing Organization Address [facility] Co de Phone Number [facility] [address] [place] [address] [phone] * XR Chest 2 Views (10/02/2024 9:45 AM EDT) Anatomical Region Laterality Modality Chest Radiographic Vivian ging 10/02/2024 9:45 AM EDT Narrative 10/02/2024 3:20 PM EDT ? [facility] ?[address] ?[place] [address] ?XRay Report ? Signed ? Patient: Saniya Reagan ?MR#: [id number] ?? [id number] ? : 2000 ?Acct:[id number] ? Age/Sex: 24 / F ?ADM Date: 10/02/24 ? Loc: HO.LAB ? Attending Dr: Arsalan Ibarra MD ? Ordering Physician: Arsalan Ibarra MD ?? Date of Service: 10/02/24 ?? Procedure(s): XR chest 2V ?? Accession Number(s): [id number] ? cc: Karla Lincoln MD; Arsalan Ibarra [...] DD/ 0945 ? TD/TT: 10/02/24 0957 ? Membership Correspondent: ? Procedure Note Ne Aden - 10/02/[address] [address] XRay Report Signed Patient: Lmvianey MastSaniya quinteros LMR#: [id number] : 2000Acct:[id number] Age/Sex: 24 / FADM Date: 10/02/24 Loc: HO.LAB Attending Dr: Arsalan Ibarra MD Ordering Physician: Arsalan Ibarra MD Date of Service: 10/02/24 Procedure(s): XR chest 2V Accession Number(s): [id number] cc: Karla Lincoln MD; Arsalan Ibarra MD [...] A Mckeon MD 10/02/2024 03:17 PM EDT RP Dictated By: Juan A Mckeon MD Signed By: <Electronically signed by Juan A Mckeon MD in OV> 10/02/24 1517 DD/ 0945 TD/TT: 10/02/24 0957 Membership Correspondent: [facility] External Provider IMG XR PROCEDURES Final Result * (ABNORMAL) Vitamin D, 25-Hydroxy, Total, Immunoassay (10/02/2024 9:21 AM EDT) Vitamin D 25-OH Total 21.2(L) >30 ng/mL [facility] Comment: Health Based Reference Values*< 20 ??ng/mL ??Snructlhn42-87 ng/mL ??Insufficient> 30 ??ng/mL ??Sufficient*Jennifer WOODARD. N [...] ORDERAB LES Final Result Performing Organization Address [facility] de Phone Number [facility] [address] [place] [phone] * Vitamin B12 (Cobalamin) and Folate Panel, Serum (10/02/2024 9:21 AM EDT) Vitamin B12 433 200 - 900 pg/mL [facility] Comment:NORMAL 200-900 PG/ML INDETERMINATE 160-199 PG/ML DEFICIENT < 160 PG/ML Folate 11.4 > or = 4.0 ng/mL [facility] Comment:Reference Values:> o r = 4.0 ng/mL< 4.0 ng/mL suggests folate deficiency Methotrexate, aminopterin and folinic acid(leucovorin) are chemotherapeutic agents whose molecularstructures are similar to folate; therefore, the Architectfolate assay cannot be used for patients using these drugs. 10/02/2024 9:21 AM EDT 10/02/2024 9:23 AM EDT Generic External Data Provider LAB BLOOD ORDERAB LES Final Result Performing Organization Address [facility] de Phone Number [facility] [address] [place] [phone] * TSH with Reflex to Free T4 (10/02/2024 9:21 AM EDT) TSH reflex Free T4 2.79 0.32 - 4.0 uIU/mL [facility] 10/02/2024 9:21 AM EDT 10/02/2024 9:23 AM EDT us Generic External Data Provider LAB BLOOD ORDERAB LES Final Result [facility] [address] [place] [address] [phone] * (ABNORMAL) CBC auto differential (10/02/2024 9:21 AM EDT) White Blood Count 5.3 4.8 - 10.8 X10*3/uL [facility] Red Blood Count 4.63 4.20 - 5.50 X10*6/uL [facility] Hemoglobin 13.2 12.0 - 16.0 g/dl [facility] Hematocrit 40.2 37.0 - 47.0 % [facility] Mean Corpuscular Volume 86.8 80.0 - 98.0 fL [facility] Mean Corpuscular Hemoglobin 28.5 27.0 - 33.0 pg [facility] Mean Corpuscular HGB Conc 32.8 31.0 - 35.0 g/dl [facility] Red Cell Distribution Width 12.6 11.0 - 16.0 % [facility] Platelet Count 350 160 - 400 X10*3/uL [facility] Mean Platelet Volume 10.0 9.4 - 12.3 fL [facility] Neutrophils Percent Auto 57.9 45 - 73 % [facility] Imm Gran Pct Auto 0.4 0.0 - 0.4 % [facility] Lymphocytes Percent Auto 26.8 20 - 40 % [facility] Monocytes Percent Auto 8.9 2 - 11 % [facility] Eosinophils Percent Auto 5.1(H) 0 - 4 % [facility] Basophils Percent Auto 0.9 0 - 2 % [facility] NRBC Pct Auto 0.0 0.0 - 0.2 /100WBC [facility] Neutrophils Absolute Auto 3.1 2.0 - 8.3 x10*3/uL [facility] Imm Gran Abs Auto 0.02 0.00 - 0.03 X10*3/uL [facility] Lymphocytes Absolute Auto 1.4 1.2 - 4.9 X10*3/uL [facility] Monocytes Absolute Auto 0.5 0.1 - 1.2 X10*3/uL [facility] Eosinophils Absolute Auto 0.3 0.0 - 0.4 X10*3/uL [facility] Basophils Absolute Auto 0.1 0.0 - 0.2 X10*3/uL [facility] NRBC Abs Auto 0.000 0.0 - 0.012 X10*3/uL [facility] 10/02/2024 9:21 AM EDT 10/02/2024 9:23 AM EDT Generic External Data Provider LAB BLOOD ORDERAB LES Final Result Performing Organization Address City/[facility] Co de Phone Number [facility] [address] [place] [phone] * Iron And Total Iron Binding Capacity (10/02/2024 9:21 AM EDT) [facility] Iron 78 30 - 160 mcg/dL [facility] Total Iron Binding Capacity 258 228 - 428 mcg/dL [facility] Percent Iron Saturation 30 15 - 50 % [facility] Unsaturated Iron Binding 180 ug/dL [facility] 10/02/2024 9:21 AM EDT 10/02/2024 9:23 AM EDT us Generic External Data Provider LAB BLOOD ORDERAB LES Final Result Performing Organization Address [facility] Co de Phone Number [facility] [address] [place] [phone] * Insulin (10/02/2024 9:21 AM EDT) Pathologist [facility] Insulin 21 2 - 29 uU/mL [facility] Comment:This test was perfor med [...] ORDERAB LES Final Result Performing Organization Address [facility] Co de Phone Number [facility] [address] [place] [address] [phone] * Zinc (10/02/2024 9:21 AM EDT) Zinc 72 60 - 130 mcg/dL [facility] Comment:This test was develo ped and its analytical performancecharacteristics have been determined by [employer] [place], [place]. It hasnot been cleared or approved by the U.S. Food and DrugAdministration. This assay has been validated pursuantto the CLIA regulations and is used for clinicalpurposes.THIS TEST WAS PERFORMED AT:[employer]/[id number] [place] [address]PJKBCZJDANIELA VIGIL MD,PHD 10/02/2024 9:21 AM EDT 10/02/2024 9:23 AM EDT Generic External Data Provider LAB BLOOD ORDERAB LES Final Result Performing Organization Address [facility] Co de Phone Number [facility] [address] [place] [phone] * (ABNORMAL) Vitamin A (10/02/2024 9:21 AM EDT) Vitamin A (Retinol) 29(A) 38 - 98 mcg/dL [facility] Comment:Vitamin supplementat ion within 24 hours prior toblood draw may affect the accuracy of the results.This test was developed and its analytical performancecharacteristics have been determined by [employer] [place], [place]. It hasnot been cleared or approved by the U.S. Food and DrugAdministration. This assay has been validated pursuantto the CLIA regulations and is used for clinicalpurposes.THIS TEST WAS PERFORMED AT:[employer]/[id number] [place] [address]PZESCJQDANIELA VIGIL MD,PHD 10/02/2024 9:21 AM EDT 10/02/2024 9:23 AM EDT Generic External Data Provider LAB BLOOD ORDERAB LES Final Result Performing Organization Address [facility] Co de Phone Number [facility] [address] [place] [phone] * (ABNORMAL) C-reactive Protein (10/02/2024 9:21 AM EDT) C Reactive Protein 4.19(H) < or = 0.50 mg/dL [facility] 10/02/2024 9:21 AM EDT 10/02/2024 9:23 AM EDT Generic External Data Provider LAB BLOOD ORDERAB LES Final Result Performing Organization Address City/[facility]/ZIP Co de Phone Number [facility] [address] [place] [phone] * Vitamin B1 (10/02/2024 9:21 AM EDT) Vitamin B1 8 8 - 30 nmol/L [facility] Comment:Vitamin supplementat ion within 24 hours prior toblood draw may affect the accuracy of the results.This test was developed and its analytical performancecharacteristics have been determined by [employer] [place], [place]. It hasnot been cleared or approved by the U.S. Food and DrugAdministration. This assay has been validated pursuantto the CLIA regulations and is used for clinicalpurposes.THIS TEST WAS PERFORMED AT:[employer] [id number] [place] [address]AHHPOUX W. MASON,MD,PHD 10/02/2024 9:21 AM EDT 10/02/2024 9:23 AM EDT Generic External Data Provider LAB BLOOD ORDERAB LES Final Result Performing Organization Address [facility] Co de Phone Number [facility] [address] [place] [phone] * Hemoglobin A1c (10/02/2024 9:21 AM EDT) Hemoglobin A1c 5.2 <6.0 % [facility] Comment:Hemoglobin A1C Refer ence Range Adults: 4.8 - 6.0 % Non diabetic: < 6.0 % Goal: < 7.0 %Additional Action Suggested: > 8.0 %Note: Hemoglobin A1c results are invalid for patients with abnormal amounts of HbF. Blood transfusions may impact the HbA1c concentration in the patient sample. Estimated Average Glucose 103 mg/dL [facility] Comment:eAG = Estimated ave rage glucose which is %A1C expressed asaverage glucose, using the formula of the N2V-NmbxpazKihunrn Glucose study (ADAG), Diabetes Care, Vol.31,#8,Jan. 2007 10/02/2024 9:21 AM EDT 10/02/2024 9:23 AM EDT Generic External Data Provider LAB BLOOD ORDERAB LES Final Result Performing Organization Address [facility] Co de Phone Number [facility] [address] [place] [phone] * (ABNORMAL) Ferritin (10/02/2024 9:21 AM EDT) Ferritin 286(H) 10 - 122 ng/mL [facility] 10/02/2024 9:21 AM EDT 10/02/2024 9:23 AM EDT us Generic External Data Provider LAB BLOOD ORDERAB LES Final Result Performing Organization Address [facility]/ZIP Co de Phone Number [facility] [address] [place] [phone] * (ABNORMAL) Lipid Panel, Standard (10/02/2024 9:21 AM EDT) Triglycerides 141 <150 mg/dL [facility] Comment:Desirable Triglyceri de: less than 150 mg/dLBorderline High Triglyceride 150-199 mg/dLHigh Triglyceride: 200-499 mg/dLVery High Triglyceride: greater than or equal to 5OO mg/dL Cholesterol 182 <200 mg/dL [facility] Comment:Desirable Cholestero l: less than 200 mg/dLBorderline High Cholesterol: 200-239 mg/dLHigh Cholesterol: greater than 239 mg/dL LDL Cholesterol Calculated 112(H) <100 mg/dL [facility] Comment:Desirable LDL: less than 100 mg/dLNear Optimal/Above Optimal LDL: 110- 129 mg/dLBorderline High LDL: 130-159 mg/dLHigh LDL: 160-189 mg/dLVery High LDL: greater than or equal to 190 mg/dL HDL Cholesterol 42 >40 mg/dL [facility] Comment:Desirable HDL: great er than 40 mg/dL Note: This HDL assay may give artificially low results in patients with liver disease. 10/02/2024 9:21 AM EDT 10/02/2024 9:23 AM EDT us Generic External Data Provider LAB BLOOD ORDERAB LES Final Result Performing Organization Address City/[facility]/ZIP Co de Phone Number [facility] [address] [place] [phone] [phone] * (ABNORMAL) Comprehensive Metabolic Panel (10/02/2024 9:21 AM EDT) Sodium 139 135 - 145 mmol/L [facility] Potassium 4.1 3.3 - 5.1 mmol/L [facility] Chloride 105 96 - 108 mmol/L [facility] Carbon Dioxide 26 22 - 29 mmol/L [facility] Anion Gap 12 12 - 20 [facility] Urea Nitrogen (BUN) 17(H) 9 - 16 mg/dL [facility] Creatinine, Serum 0.74 0.5 - 1.4 mg/dL [facility] Estimated Glomerular Filt Rate >60 [facility] Comment:Chronic Kidney Disea se: Estimated GFR < 60 mL/min/1.82o1Vpceci Kidney Disease: Estimated GFR < 15 mL/min/1.73m2 Glucose 104 60 - 115 mg/dL [facility] Calcium 9.4 8.4 - 10.2 mg/dL [facility] Bilirubin, Total 0.4 0.0 - 1.0 mg/dL [facility] Aspartate Amino Transferase 136(H) 5 - 31 U/L [facility] Alanine Aminotransferase 186(H) 0 - 31 U/L [facility] Total Protein 8.2(H) 6.5 - 8.0 g/dL [facility] Albumin Level 4.2 3.5 - 5.0 g/dL [facility] Alkaline Phosphatase 67 39 - 117 U/L [facility] 10/02/2024 9:21 AM EDT 10/02/2024 9:23 AM EDT Generic External Data Provider LAB BLOOD ORDERAB LES Final Result [facility] [address] [place] [phone] [phone] * Hepatitis A,B,C Profile (07/11/2024 12:00 PM EST) Hepatitis A IgM Nonreactive Nonreactive [facility] Comment:IgM antibodies to [place]ER[place]OD V not detected; does not exclude earlyacute or recovered HAV infection. ~Hepatitis B Surface Antibody NONREACTIVE Nonreactive [facility] Comment:Nonreactive: < 8.00 mIU/mL Hepatitis B Core Antibody Nonreactive Nonreactive [facility] Hepatitis C Antibody Nonreactive Nonreactive [facility] Comment:Antibodies to HCV no t detected; does not exclude early acuteHCV infection. Hepatitis B Surface Ag Negative Negative [facility] Blood Venous blood specimen / Unknown 07/11/2024 12:00 PM EST 07/11/2024 1:22 PM EST us Karla Mckinney MD LAB BLOOD ORDERABLES Final Result Performing Organization Address City/[facility]/ZIP Co de Phone Number [facility] [address] [place] [phone] * HIV-1/2 Antigen and Antibodies, Fourth Generation, with Reflexes (07/04/2024 11:11 AM EST) HIV AB/AG Nonreactive Nonreactive [facility] Comment:HIV-1 p24 Ag and/or HIV-1/HIV-2 Ab not detected.A test result that is nonreactive does not exclude thepossibility of exposure to or infection with HIV-1 and/orHIV-2. Nonreactive results in this assay for individualswith prior exposure to HIV-1 and/or HIV-2 may be due toantigen and antibody levels that are below the limit ofdetection of this assay.The [employer] HIV Ag/Ab Combo assay result andsupplemental assay results should be interpreted inconjunction with the patient's clinical presentation,history and other laboratory results. If the results areinconsistent with clinical evidence, additional testing issuggested to confirm the result. Blood Venous blood specimen / Unknown 07/04/2024 11:11 AM EST 07/04/2024 1:03 PM EST us Karla Mckinney MD LAB BLOOD ORDERABLES Final Result Performing Organization Address [facility]/ZIP Co de Phone Number [facility] [address] [place] [phone] * Pap with NG,CT,Trich (12/15/2023 11:00 AM EDT) Trichomonas (NAAT) NOT DETECTED NOT DETECTED [facility] Comment:The analytical perfo rmance characteristics of thisassay have been determined by [employer]. Themodifications have not been cleared or approved bythe FDA. This assay has been validated pursuant to theIA regulations and is used for clinical purposes.For additional information, please refer tohttp://education.Lema21/faq/Trichomonastma(This link is being provided for information/educational purposes only.)THIS TEST WAS PERFORMED AT:[facility] [place] [id number] SOUTH MD CTNG Ref Lab NOT DETECTED NOT DETECTED [facility] NG Ref Lab NOT DETECTED NOT DETECTED [facility] ThinPrep?? vial Cervix uteri structure / Unknown 12/15/2023 11:00 AM EDT 12/15/2023 11:42 AM EDT Narrative [facility] - 12/18/2023 11:04 PM EDT Was previous PAP abnormal? NoCollection Date: [id number] by: TIMUR Quintanilla: Cervix Tereza Bowen [facility] CYTOLOGY ORDERABLES F inal Result [facility] [address] [place] [address] [phone] * ThinPrep Imaging System Pap (12/14/2023 11:00 AM EDT) SOURCE: SEE NOTE [facility] Comment:Cervix Report Status: TNP [facility] Clinical Information: SEE NOTE [facility] Comment:None given LMP: SEE NOTE [facility] Comment:NONE GIVEN Prev. PAP: SEE NOTE [facility] Comment:GN Prev. BX: SEE NOTE [facility] Comment:NONE GIVEN Statement Of Adequacy: SEE NOTE [facility] Comment:Satisfactory for clifton luation.Endocervical/transformation zone component absent. General Categorization: TNP [facility] Interpretation/Result: SEE NOTE [facility] Comment:Cytology Results: Ne gative for intraepitheliallesion or malignancy. Cytology Comment SEE NOTE [facility] Comment:This Pap test has be en evaluated with computerassisted technology. Industry Operations Investigator: SEE NOTE [facility] Comment:CMB, CT(ASCP) CT Scr eening Location: [facility] [address] [address]Cofcu preparation performed at: [employer], [address] [place] [id number] CLIA No. [id number] Review Industry Operations Investigator: [facility] Pathologist [facility] PAP Infection [facility] See Note SEE NOTE [facility] Comment:EXPLANATORY NOTE:The Pap is a screening test for cervical cancer. It isnot a diagnostic test and is subject to false negativeand false positive results. It is most reliable when asatisfactory sample, regularly obtained, is submittedwith relevant clinical findings and history, and whenthe Pap result is evaluated along with historic andcurrent clinical information.THIS TEST WAS PERFORMED AT:[address] [id number] MERATI,MD 12/14/2023 11:0 0 AM EDT 12/15/2023 11:40 AM EDT Narrative [facility] - 12/20/2023 12:03 PM EDT SEE EMR FOR SCANNED REPORTSCREENINGCERVICALINITIAL us Tereza Bowen CNM LAB PATHOLOGY ORDERABLES Final Result [facility] [address] [place] [address] [phone] from Last 3 Months or Most Recently Relevant to Health Maintenance Insurance [facility] C3 Care Teams Appeals Writer Relationship Specialty Start Date End Date Karla Lincoln MD [address] [place] [phone] PCP - General Internal Medicine 07/04/24
== END 2024-11-05 11:15 | disposition home or self-care (01) ==
LOC: HO.HBST 10:23
PROVIDERS: PCP Internal Medicine; Visit Provider Counselor Mental Health
DX: F43.20 Adjustment disorder, unspecified (principal); Z72.4 Inappropriate diet and eating habits; Z71.89 Other specified counseling
CPT/HCPCS: 90837

== ENCOUNTER 2024-11-12 07:48 | Outpatient (REF) | payer MEDICAID, SELFPAY ==
--- NOTE | ~2024-11-12 | US_ITS ---
EXAMINATION: US ABDOMEN COMPLETE WITH LIVER ELASTOGRAPHY HISTORY: E66.01 - Morbid (severe) obesity due to excess calories TECHNIQUE: Real-time grayscale ultrasound imaging of the abdomen was performed and images were reviewed. COMPARISON: There are no prior studies for comparison. FINDINGS: Liver: The right lobe of the liver measures 14.5 cm in size. The left lobe of the liver measures 8.3 cm in size. The liver demonstrates increased echotexture, consistent with steatosis. No focal mass or intrahepatic biliary ductal dilatation is identified. There is normal hepatopedal flow in the portal vein. Ultrasound elastography of the liver was performed with 10 separate measurements of the liver parenchyma with the patient in the supine position. Measurements were obtained approximately 2 cm below Garth's capsule and perpendicular to the capsule. Images are of satisfactory quality. The median shear wave velocity is 1.75 m/s. The interquartile range/median (IQR/median) is 0.09. Gallbladder and biliary tree: The gallbladder is unremarkable, without evidence of calculi, wall thickening, or pericholecystic fluid. There is no sonographic Edwards sign. The common bile duct is normal in caliber measuring 4 mm. Kidneys: The right kidney measures 11.4 cm in length. The left kidney measures 11.1 cm in length. The kidneys are unremarkable, without evidence of masses, hydronephrosis, or calculi. Pancreas: The pancreatic head, neck, and body are unremarkable. The pancreatic tail is obscured by bowel gas. Spleen: The spleen is normal in size and contour, measuring 11.7 cm in length. Abdominal aorta and inferior vena cava: The visualized portions of the abdominal aorta and inferior vena cava are normal in caliber. There is no free fluid in the abdomen. US/US abdomen comp w elastography IMPRESSION: Hepatic steatosis. The median shear wave velocity in the liver is 1.75 m/s, corresponding to a median liver stiffness of 9.43 kPa. The IQR/median value is 0.09. This is indicative of a quality data set. Findings are indicative of a high elastography value suggestive of compensated advanced chronic liver disease. REFERENCE: Society of Radiologists in Ultrasound Liver Stiffness Thresholds (2020): LIVER STIFFNESS THRESHOLDS: *Shear wave velocity less than 1.3 m/s (Liver Stiffness equal or less than 5 kPa): High probability of being normal. *Shear wave velocity less than 1.7 m/s (Liver Stiffness less than 9 kPa): In the absence of other known clinical signs, rules out compensated advanced chronic liver disease. *Shear wave velocity between 1.7-2.1 m/s (Liver Stiffness 9-13 kPa): Suggestive of compensated advanced chronic liver disease but need further test for confirmation. *Shear wave velocity between 2.1-2.4 m/s (Liver Stiffness 13-17 kPa): Rules in compensated advanced chronic liver disease. *Shear wave velocity greater than 2.4 m/s (Liver Stiffness over 17 kPa): Suggestive of clinically significant portal hypertension. QUALITY OF DATA SET: *IQR/Median value equal or less than 0.15 implies a quality data set. *IQR/Median value over 0.15 implies a poor quality data set. SIGNIFICANT CHANGE FROM PRIOR EXAM: Significant change if liver stiffness measurement is 10% or greater from prior exam. OTHER CONSIDERATIONS: The stage of liver fibrosis may be overestimated in the setting of acute hepatitis, liver inflammation, elevated liver function tests, hepatic vascular congestion, obstructive cholestasis, non-fasting state, and infiltrative diseases such as amyloidosis and lymphoma. In some patients with NAFLD, the liver stiffness thresholds for compensated advanced chronic liver disease may be lower. In causes other than viral hepatitis and NAFLD, liver stiffness thresholds are not well established. Electronically signed by: Juan A Mckeon MD 11/12/2024 09:10 AM EDT
--- NOTE | ~2024-11-12 | FL_ITS ---
EXAMINATION: XR FLUOROSCOPY UPPER GI SERIES CLINICAL INFORMATION: Morbid obesity due to excess calories. Preoperative bariatric surgery. COMPARISON: None TECHNIQUE: Fluoroscopic air contrast upper GI examination was performed utilizing standard techniques with thin and thick barium and effervescent granules. Numerous spot images were obtained. Several fluoroscopic image hold cine sequences were also obtained. FINDINGS: UPPER GI SERIES: Lateral cine images of the oropharynx and hypopharynx demonstrate normal swallow mechanism with normal epiglottic inversion and soft palate elevation. No laryngeal penetration, glottic or subglottic aspiration identified. No nasopharyngeal reflux present. Hypopharyngeal structures appear normal without evidence of mass or diverticulum. There was no significant cricopharyngeal achalasia. Dual and single contrast images of the esophagus demonstrate normal caliber, contour, and mucosal pattern. No evidence of stricture, mass, or ulcerations identified. Esophageal peristalsis was normal. No evidence of hiatus hernia identified. Normal GE junction. Episodic gastroesophageal reflux was observed to the level of the thoracic inlet. Dual contrast and single contrast images of the stomach demonstrated normal contour and mucosal pattern without evidence of mass, ulceration, or other abnormality. Contrast freely passed into the gastric antrum and duodenal bulb without delay. Single and air-contrast images of the duodenal bulb demonstrate no abnormality. The duodenal sweep has a normal appearance, course, and mucosal fold appearance. FLUOROSCOPY TIME: 2 minutes, 17 seconds Number of Spot Images:9 Number of cines obtained: 6 DOSE AREA PRODUCT: 3486 uGy-m2 (microgray-meter squared) IMPRESSION 1. Episodic gastroesophageal reflux noted to the level of the thoracic inlet. 2. Otherwise normal examination. Electronically signed by: Gabriel nIgram MD 11/12/2024 10:22 AM EDT
--- OUTSIDE RECORDS SUMMARY | 2024-11-12 07:51 | XMS_ITS | Encounter Summary ---
Author Organization [facility] Address [address] [facility] 7t [place] [address] Care Team Providers Care Etiquette Teacher Name Role Phone Karla Lincoln MD Primary Care Provide r Encounter Details Date Type Department Care Team (Late Contact Info) Description 01/08/2024 Orders Only [facility] MED[facility]INE [address] [place] [phone] Tereza Bowen CNM [address] [place] [address] Social History Tobacco Use Types Packs/Day Years [...] Description 01/02/2025 10:45 AM EDT Office Visit [facility] [address] [place] [phone] Karla Lincoln MD [address] [place] [phone] documented as of this encounter Visit Diagnoses Not on filedocumented in this encounter Care Teams Etiquette Teacher Relationship Specialty Start Date End Date Karla Lincoln MD [address] [place] [phone] PCP - General Internal Medicine 07/04/24 documented as of this encounter
== END 2024-11-12 07:49 | disposition home or self-care (01) ==
LOC: HO.US 07:48
PROVIDERS: PCP Internal Medicine; Visit Provider Internal Medicine
DX: E66.01 Morbid (severe) obesity due to excess calories (principal); J45.909 Unspecified asthma, uncomplicated
CPT/HCPCS: 74246; 76700; 76981

== ENCOUNTER → 2024-11-12 07:54 | Outpatient (BNV) | payer MEDICAID, SELFPAY | PROVIDERS: PCP Internal Medicine; Visit Provider Radiology Diagnostic Radiology | DX: K21.9 Gastro-esophageal reflux disease without esophagitis (principal); K72.10 Chronic hepatic failure without coma | CPT/HCPCS: 74246; 76700; 76981 ==

== ENCOUNTER 2024-11-22 08:11 | Outpatient (AMB) | payer MEDICAID, SELFPAY ==
--- OUTSIDE RECORDS SUMMARY | 2024-11-22 08:14 | XMS_ITS | Encounter Summary ---
Author Organization [employer] [facility] Address [address] [facility] 7t [place] [address] Care Team Providers Care Motocross Racer Name Role Phone Karla Lincoln MD Primary Care Provide r Encounter Details Date Type Department Care Team (Late Contact Info) Description 01/08/2024 Orders Only [facility] MEDICINE [address] [place] [phone] Tereza Bowen CNM [address] [place] [address] Social History Tobacco Use Types Packs/Day Years [...] Description 01/02/2025 10:45 AM EDT Office Visit [facility] [address] [place] [phone] Karla Lincoln MD [address] [place] [phone] documented as of this encounter Visit Diagnoses Not on filedocumented in this encounter Care Teams Motocross Racer Relationship Specialty Start Date End Date Karla Lincoln MD [address] [place] [phone] PCP - General Internal Medicine 07/04/24 documented as of this encounter
--- NOTE | 2024-11-22 09:15 | A.OFFVIS_ITS ---
VS Expanded 11/22/24 09:16 Height 5 ft 1 in Weight 273 lb 8 oz BMI 51.7 Body Fat % 68.5 Body Fat Mass 187.5 Fat Free Mass 86.2 Visceral Fat Rating 29 Body Water % 21.6 Body Water Mass 59.1 Basal Metabolic Rate/Score 1,219 Intake Visit Reasons: TV Pre Op LSG 11/29/24 *SHANK SORTER* Clinical Microbiologist Required: Yes Clinical Microbiologist Services: Clinical Microbiologist Present Information Interpreted: clinical only Allergies No Known Allergies Allergy (Verified 11/22/24 09:25) Medication List - Last Reconciled 11/22/24 by Arsalan Ibarra MD albuterol sulfate 90 mcg/actuation (Ventolin HFA) 2 puffs inhalation Q6H PRN cholecalciferol (vitamin D3) 125 mcg PO DAILY mecobalamin (vitamin B12) 1,000 mcg sublingual DAILY ondansetron 4 mg PO Q12H pantoprazole 40 mg PO DAILY PNV,calcium 29-ownx-erzak acid 27 mg iron- 1 mg ( Vitamins Plus Low Iron) 1 tab PO DAILY polyethylene glycol 3350 17 grams PO DAILY sucralfate 10 mL PO BID vitamin A palmitate 10,000 units PO DAILY HPI HPI TV Pre Op LSG 11/29/24 *SHANK SORTER*: Details: Start time: 9.12am, End time: 9.37am ?I spent 20 minutes speaking with the patient on the phone plus an additional 5 minutes reviewing and updating records for a total of 25 minutes HPI Comments Details: Overall weight loss: 17.6lbs, or 6.04% [facility] Medical History Asthma Morbid obesity Surgical History No history of previous surgery Family History Mother Arthritis Father No problems noted. Social History Alcohol intake: never Patient Tobacco Use Status: Never used Tobacco Telehealth Telehealth Telehealth Platform: Telephone Location of provider rendering services: practice address Location of patient: address on file Patient Identification confirmed using: Name, : Yes Telehealth method: voice only Patient verbally consented to treatment: Yes Patient verbally consented to billing insurance company: Yes Patient informed of any privacy concerns related to visit: Yes Minutes spent on Phone/Video with Pt.: 25 Assessment & Plan Assessment & Plan (1) Morbid obesity: Code(s): E66.01 - Morbid (severe) obesity due to excess calories Category: Medical Plan: 1. Plan for lap sleeve gastrectomy including upper GI endoscopy. All tests has been completed and reviewed and the patient is cleared for the surgery. ?If diaphragmatic or ventral hernias are present at time of surgery, these will be repaired laparoscopically as well. Risks and complications were discussed in detail including possible conversion to an open procedure, anastomotic leak, bleeding requiring transfusion, small bowel obstruction, , DVT and pulmonary embolism, cardiac, or pulmonary complications, as usp complications such as anastomotic ulcer, insufficient weight loss and vitamin deficiencies. I emphasized the importance of close follow-up, adherence to instructions and good communication. So far she has proven to be an excellent communicator and very compliant with all our directions accomplishing a great weight loss. I believe that she is an excellent candidate and she is ready. 2. Preop prescriptions were provided and explained the purpose of each one. Need to be purchased preop. Start Pantoprazole now as you get it from the pharmacy, 1 pill per day. Sucralfate and Zofran are for after surgery as needed. 3. Bowel prep: please do 7 packets ?of Miralax mixing each one with a an 8oz glass of water, crystal light, gatorade zero, or propel ?on 11/27/24 and the same amount on 11/28/24. The Miralax you begin with one packet at a time in 8oz water or crystal light, gatorade zero, or propel ?as early in the day as you can and you do them back to back until you finish them. Continue the protein shakes during ?the bowel prep. 4. Needs to purchase 1oz medicine cups . 5. Needs to purchase Children's liquid Tylenol for postop pain control. 6. Avoid aspirin, motrin, Advil, Aleve, Meloxicam, Excedrin, Ibuprofen, Naproxyn. Tylenol is OK. 7. She needs to purchase the Celebrate multivitamins from the hospital's gift shop, chewable or pills whatever you prefer. 8. Will do basic preop blood work-up either TODAY until 4pm OR tomorrow 11/23/24 between 8am and 12pm, fasting for 12 hours and is scheduled to see the Anesthesiologist prior to the day of surgery. 9. Importance of adherence to postop follow-up and recommendations was underscored and she understands that. 10. Stop food and bars as of today 11/22/2024 and continue with 3 Celebrate REBUILD protein shakes (ONE scoop EACH in 8oz almond milk) at 10am-12pm, 1pm-3pm and 4pm-6pm and TWO more Celebrate REBUILD protein shake with TWO scoops EACH in 8oz of almond milk at 7pm-9pm and 10pm to midnight 11. No soups, broths or V8 12. The patient's?medical?history has been reviewed and they are considered low risk for post op DVT and therefore DVT prophylaxis is not considered necessary. Travel after surgery was reviewed. The patient has not disclosed any travel plans during the first 30 days after surgery and they have been advised that within the first 30 days after surgery any bus, plane, train or car travel over 2 hours in duration is contraindicated due to the possibility of developing blood clots from immobility. Any travel, needs to include periods of ambulation of 10 minutes in duration every 2 hours.? Patient was instructed to discuss any plans for travel during this period with their bariatric surgeon.? 13. Please take at the day of surgery the following medications: NONE 14. Stop any control pills and don't use them for one month after surgery 15. Absolutely no smoking or vaping, or marijuana until the surgery and for at least the first 4 weeks. Only nicotine patches are allowed. 16. Send me weight measurements on Monday11/24/24 and then on Monday11/29/24, the day of surgery before you go to the hospital. 17. Avoid any steroids by mouth for any reason. Let me know if someone prescribes them to you 18. These instructions supersede anything else you read in the handbook, anything you watched in videos or classes or you were told by any other provider. If there is any conflict, you follow the above instructions and nothing else. Orders: Orders TSH reflex Free T4 Today E66.01 - Morbid (severe) obesity due to excess calories Type and Screen Today E66.01 - Morbid (severe) obesity due to excess calories Partial Thromboplastin Time Today E66.01 - Morbid (severe) obesity due to excess calories C Reactive Protein Today E66.01 - Morbid (severe) obesity due to excess calories Hemoglobin A1c Today E66.01 - Morbid (severe) obesity due to excess calories Insulin Today E66.01 - Morbid (severe) obesity due to excess calories Comprehensive Met. Panel Today E66.01 - Morbid (severe) obesity due to excess calories Prothrombin Time INR Today E66.01 - Morbid (severe) obesity due to excess calories Lipid Panel Today E66.01 - Morbid (severe) obesity due to excess calories Complete Blood Count Auto Diff Today E66.01 - Morbid (severe) obesity due to excess calories Medications: New ondansetron Only take one every 12 hours as needed if you have nausea 4 mg PO Q12H 20 tabs 0RF nausea and vomiting R11.0 - Nausea pantoprazole 40 mg PO DAILY 90 tabs 0RF K21.9 - Gastro-esophageal reflux disease without esophagitis sucralfate 10 mL PO BID 600 mL 2RF K21.9 - Gastro-esophageal reflux disease without esophagitis polyethylene glycol 3350 Mix each measuring cup with 8oz of water, Crystal light, or Gatorade zero, or Propel and do 7 measuring cups on 11/27/24 and another 7 measuring cups on 11/28/24 17 grams PO DAILY 238 grams 0RF Z01.818 - Encounter for other preprocedural examination
[2024-11-22 09:16] VITALS: BMI 51.7
== END 2024-11-22 09:38 | disposition home or self-care (01) ==
LOC: HO.HBS 08:11
PROVIDERS: PCP Internal Medicine; Visit Provider Surgery
DX: E66.01 Morbid (severe) obesity due to excess calories (principal)
CPT/HCPCS: 99499

== ENCOUNTER 2024-11-23 08:38 | Outpatient (REF) | payer MEDICAID, SELFPAY ==
--- OUTSIDE RECORDS SUMMARY | 2024-11-23 08:40 | XMS_ITS | Encounter Summary ---
Author Organization [facility] [facility] Address [address] [facility] 7t [place] [address] Care Team Providers Care Brick Picker Name Role Phone Karla Lincoln MD Primary Care Provide r Encounter Details Date Type Department Care Team (Late Contact Info) Description 01/08/2024 Orders Only [facility] MEDICINE [address] [place] [phone] Tereza Bowen CNM [address] [place] [address] Social History Tobacco Use Types Packs/Day Years [...] Description 01/02/2025 10:45 AM EDT Office Visit [facility] [address] [place] [phone] Karla Lincoln MD [address] [place] [phone] documented as of this encounter Visit Diagnoses Not on filedocumented in this encounter Care Teams Brick Picker Relationship Specialty Start Date End Date Karla Lincoln MD [address] [place] [phone] PCP - General Internal Medicine 07/04/24 documented as of this encounter
[2024-11-23 09:05] LABS: MANUAL DIFF FLAG NO
[2024-11-23 09:36] LABS: Basophils Percent Auto 0.9 % (0-2); Eosinophils Absolute Auto 0.1 X10*3/uL (0.0-0.4); Eosinophils Percent Auto 2.2 % (0-4); Hematocrit 39.1 % (37.0-47.0); Hemoglobin 13.2 g/dl (12.0-16.0); Imm Gran Abs Auto 0.01 X10*3/uL (0.00-0.03); Imm Gran Pct Auto 0.2 % (0.0-0.4); Lymphocytes Absolute Auto 1.4 X10*3/uL (1.2-4.9); Lymphocytes Percent Auto 30.5 % (20-40); Mean Corpuscular HGB Conc 33.8 g/dl (31.0-35.0); Mean Corpuscular Hemoglobin 28.6 pg (27.0-33.0); Mean Corpuscular Volume 84.6 fL (80.0-98.0); Mean Platelet Volume 11.4 fL (9.4-12.3); Monocytes Absolute Auto 0.4 X10*3/uL (0.1-1.2); Monocytes Percent Auto 9.7 % (2-11); Neutrophils Absolute Auto 2.6 x10*3/uL (2.0-8.3); Neutrophils Percent Auto 56.5 % (45-73); Platelet Count 263 X10*3/uL (160-400); Red Blood Count 4.62 X10*6/uL (4.20-5.50); Red Cell Distribution Width 12.5 % (11.0-16.0); White Blood Count 4.5 X10*3/uL (4.8-10.8)
[2024-11-23 09:47] LABS: INTERNATIONAL NORM RATIO 1.2 (0.9-1.1); Prothrombin Time 13.9 SEC (10.9-12.4)
[2024-11-23 09:54] LABS: Estimated Average Glucose 88 mg/dL; Hemoglobin A1c % 4.7 % (<6.0)
[2024-11-23 10:13] LABS: Alanine Aminotransferase 83 U/L (0-31); Albumin Level 4.1 g/dL (3.5-5.0); Alkaline Phosphatase 77 U/L (39-117); Anion Gap 11 (12-20); Aspartate Amino Transferase 60 U/L (5-31); Bilirubin Total 0.4 mg/dL (0.0-1.0); Blood Urea Nitrogen 11 mg/dL (9-16); C Reactive Protein 1.06 mg/dL (< or = 0.50); Calcium 9.3 mg/dL (8.4-10.2); Carbon Dioxide 27 mmol/L (22-29); Chloride 106 mmol/L (96-108); Cholesterol 142 mg/dL (<200); Estimated Glomerular Filt Rate > 60; Glucose Random 92 mg/dL (60-115); HDL Cholesterol 28 mg/dL (>40); Potassium 4.1 mmol/L (3.3-5.1); Sodium 140 mmol/L (135-145); Total Protein 7.6 g/dL (6.5-8.0)
[2024-11-23 10:18] LABS: LDL Cholesterol Calculated 83 mg/dL (<100); Triglycerides 159 mg/dL (<150)
[2024-11-23 10:20] LABS: TSH reflex Free T4 2.64 uIU/mL (0.32-4.0)
[2024-11-23 10:36] LABS: Insulin 13 uU/mL (2-29)
== END 2024-11-23 08:39 | disposition home or self-care (01) ==
LOC: HO.LAB 08:38
PROVIDERS: PCP Internal Medicine; Visit Provider Surgery
DX: E66.01 Morbid (severe) obesity due to excess calories (principal)
CPT/HCPCS: 36415; 80053; 80061; 83036; 83525; 84443; 85025; 85610; 85730; 86140

== ENCOUNTER → 2024-11-25 13:32 | Outpatient (BNVA) | payer MEDICAID, SELFPAY | PROVIDERS: PCP Internal Medicine; Visit Provider Physician Assistant Surgical ==

== ENCOUNTER 2024-11-29 10:05 | Inpatient (IN) | payer MEDICAID, SELFPAY ==
[2024-11-26 11:13] VITALS: BMI 51.7
--- NOTE | 2024-11-27 14:21 | P.CONAN_ITS ---
HPI - Anesthesia Eval Consult details Narrative: 24yo F for Gastrectomy Sleeve BMI 51.7 PMFSH Active Problems Active Problems: All Active Problems H. pylori infection (Acute) Vitamin A deficiency (Acute) Vitamin B12 deficiency (Acute) Vitamin D deficiency (Acute) Asthma (Acute) Morbid obesity (Acute) Past Medical History Medical History (Updated 12/01/24 @ 00:01 by Nirmala Corrales) Asthma Morbid obesity Family History Family History Mother Arthritis Father No problems noted. Family history of problems with anesthesia: No Surgical History Surgical History (Updated 12/05/24 @ 13:04 by Yamileth Starkey [facility]) S/P laparoscopic sleeve gastrectomy (11/29/24) History of esophagogastroduodenoscopy (EGD) History of Problems with Anesthesia: No Social History Social History Household Members: Family Housing: House Are you a primary multi care technician to a significant other at home: No Do you presently have visiting nurse or other home services: No Alcohol intake: never Patient Tobacco Use Status: Never used Tobacco Meds Allergies Allergy/AdvReac Type Severity Reaction Status Date / Time No Known Allergies Allergy Verified 12/04/24 12:35 Home Medications ?Medication ?Instructions ?Recorded ?Confirmed ?Last Taken ?Type albuterol sulfate 90 mcg/actuation 2 puff inhalation Q 6H PRN wheezing 07/15/24 12/04/24 Unknown History aerosol inhaler (Ventolin HFA) Exam Height,Weight and Vital Signs: Height 5 ft 1 in Weight 124.058 kg Pertinent Lab Results Pertinent Lab Results: Laboratory Tests 11/23/24 08:54 Blood Type A Positive Antibody Screen NEGATIVE Laboratory Tests 11/23/24 09:03 WBC 4.5 L Hgb 13.2 Hct 39.1 Plt Count 263 Sodium 140 Potassium 4.1 Chloride 106 Carbon Dioxide 27 BUN 11 Creatinine 0.70 Narrative Narrative: EKG 09/2024 Vent. Rate : 87 BPM Atrial Rate : 87 BPM P-R Int : 134 ms QRS Dur : 72 ms QT Int : 376 ms P-R-T Axes : 25 39 10 degrees QTcB Int : 452 ms Normal sinus rhythm with sinus arrhythmia Normal ECG No previous ECGs available Assessment and Plan Assessment Anesthesia Assessment: Chart Reviewed Final Anesthetic Review Family History of Problems with Anesthesia: No History of Problems with Anesthesia: No
[2024-11-29] VITALS (10 sets, daily range): BP systolic 118–149; BP diastolic 67–88; PULSE 69–98; RESP 16–18; TEMP 36.6–36.9; O2SAT 95–100; BMI 50.4; BMI 53.6
[2024-11-29 10:32] LABS: UPreg QC Valid YES; Urine Pregnancy NEGATIVE (NEGATIVE)
[2024-11-29] MEDS: Lactated Ringers 1,000 ML 999 ML IV (10:47)
[2024-11-29] MEDS: Aprepitant 32 MG/4.4 ML VIAL IVPUSH (10:47)
--- OUTSIDE RECORDS SUMMARY | 2024-11-29 11:05 | XMS_ITS | Encounter Summary ---
Author Organization [facility] Address [address] [facility] 7t [place] [address] Care Team Providers Care Salesperson [employer] Name Role Phone Karla Lincoln MD Primary Care Provide r Encounter Details Date Type Department Care Team (Late Contact Info) Description 01/08/2024 Orders Only [facility] MEDICINE [address] [place] [phone] Tereza Bowen CNM [address] [place] [address] Social History Tobacco Use Types Packs/Day Years [...] Description 01/02/2025 10:45 AM EDT Office Visit [facility] [address] [place] [phone] Karla Lincoln MD [address] [place] [phone] documented as of this encounter Visit Diagnoses Not on filedocumented in this encounter Care Teams Salesperson [employer] Relationship Specialty Start Date End Date Karla Lincoln MD [address] [place] [phone] PCP - General Internal Medicine 07/04/24 documented as of this encounter
--- NOTE | 2024-11-29 12:04 | MHC.SHP ---
Pre-Procedural Eval Section A - 24 Hr Update-Section A only Date of Service: 11/29/24 The patient is an INPATIENT: Yes The patient has been examined within 24 hours of the surgical procedure. The History & Physical has been completed within 30 days and I have reviewed it.: Yes Section B - Complete if H&P > 30 days Chief Complaint: Morbid obesity Relevant Family History (Specify if Yes): No Relevant Social History: None Present Medications: None Medical History: No relevant PMH History of Previous Operations: No relevant previous surgery Allergies: Allergies Allergy/AdvReac Type Severity Reaction Status Date / Time No Known Allergies Allergy Verified 11/29/24 10:31 Review of Systems Sugical H&P ROS: Negative: Constitution, Cardiovascular, Respiratory, Neurological, Psychiatric, Hem-Onc, Allergic/Immunologic, Gastrointestinal, Genitourinary, Musculoskeletal, Integumentary, Endocrine and Eyes/Ears/Nose/Throat Exam Surgical H&P Exam: Normal: HEENT, Normal: Heart, Normal: Lungs, Normal: Extremities, Normal: Abdomen, Normal: Skin and Normal: Neurological Plan Diagnosis/Plan: Unchanged I have reviewed the history and physical and performed a pertinent physical examination on my patient. No changes have occurred unless specified. Time Spent With Patient Time: Total time managing care of this patient today ____ minutes.
--- NOTE | 2024-11-29 12:22 | PM.OP ---
Brief Operative Note Date of Service: 11/29/24 Pre-op diagnosis: Morbid obesity with comorbidities (see below) Post-op diagnosis: same Procedure: INITIAL PATIENT BMI ON PRESENTATION AT OUR OFFICE: 55.1 Kg/m2 LAST BMI BEFORE SURGERY: 51.7 Kg/m2 COMORBIDITIES: asthma, GERD, liver steatosis, liver fibrosis ?The patient presented to the Weight Management Program with significant obesity that was negatively impacting the patient's comorbidities as listed above.? The program is a phased program with a special focus on preoperative medical weight management to promote substantial weight loss and prepare the patients for the second phase of the program: bariatric surgery. The patient participated in an intensive weekly lifestyle ?intervention and exercise program during which the patient ?has lost between the initial office visit and the last preoperative visit 24 lbs, or 8.24% of initial actual body weight. It was deemed appropriate for the patient to now have bariatric surgery. In light of the current Covid-19 pandemic and the well documented strong association of obesity and increased risk of worse outcomes if infected with Covid-19 (REFERENCES:https://pubmed.ncbi.nlm.nih.gov/36095132/,?https://pubmed.ncbi.nlm.nih.gov/59120663/), any delay in undergoing bariatric surgery may lead to the patient's worsening health condition and increased?risk of more severe Covid-19 disease if infected. In addition a recent?study from [facility] published in [facility] on 06/14/2021 ([email or web address]) found that, among patients with obesity, substantial weight loss achieved with surgery was associated with improved outcomes of COVID-19 infection. The findings suggest that obesity can be a modifiable risk factor for the severity of COVID-19 infection. In addition, the patient met the BMI-criteria for bariatric surgery based on the BMI on initial presentation. The patient should not be penalized for achieving such weight loss because ?it is not sustainable long-term without surgical intervention and it was achieved in preparation for bariatric surgery ?under my direction and based on my published research ([email or web address]).[email or web address] and?[email or web address].soard.org/article/[email or web address])40875-X/pdf) ?that a 10% preoperative weight loss improves long-term weight loss after surgery and reduces perioperative complications.? Insurance carriers such as [facility] have endorsed my recommendations ?and have included in their policies criteria to include a 10% preoperative weight loss requirement. PROCEDURE: Esophago-gastroscopy, laparoscopic sleeve gastrectomy and laparoscopic gastropexy INDICATIONS: This is a 24 year-old female who was electively scheduled for laparoscopic, possibly open sleeve gastrectomy. The risks and complications of the procedure were discussed with the patient in advance, particularly the possibility of ; pulmonary embolism; staple line leak; bleeding; GERD; cardiac, pulmonary, or renal complications; as well as long-term problems such as insufficient weight loss, vitamin deficiency, strictures, or ulcers. The patient understood all the risks, and was in agreement to proceed with surgery. DESCRIPTION OF PROCEDURE: After informed consent was obtained from the patient, the patient was given preoperative antibiotics, and was transferred to the operating room. After successful induction of general anesthesia, pneumatic compression devices were placed on both lower extremities. An upper endoscopy was performed next. The oropharynx and esophagus appeared to be within normal limits. There was no diaphragmatic hernia present. The stomach was entered. Then after all fluid and air were suctioned and the stomach was fully decompressed, the scope was withdrawn and secured in the mid esophagus. The patient was then prepped and draped in the usual sterile manner, and abdominal access was established at the right upper quadrant with the Tamir technique. A 12 mm blunt port was inserted, and the abdomen was insufflated with CO2 to a pressure of 15 mmHg. Under direct visualization, additional ports were placed, specifically two 5 mm Versi-step ports to the left upper quadrant, and a 5 mm Versi-Step port to the right upper quadrant. 1% lidocaine plain was used to infiltrate all port sites as well as all fascia defects. Following that, the patient was placed in a steep reverse Trendelenburg position. An additional 5 mm port was placed to the right flank for the Mediflex retractor that was used to retract the left lobe of the liver. The gastro-esophageal fat pad was opened with the ultrasonic device (Thellenerbeat, Olympus) and the anterior esophagus and hiatus were exposed. The angle of His was opened with the ultrasonic device the fundus of the stomach from any diaphragmatic and splenic attachments. I then opened the gastrocolic ligament between the transverse colon and the greater curvature of the stomach with the ultrasonic device to enter the lesser sac and facilitate the ligation of the short gastric vessels. I started at a mid-point along the greater curvature and using the Thunderbeat, all short gastric vessels were divided all the way to the angle of His until the left nicole was completely dissected at its entirety. I then divided the gastro-colic ligament distally to a distance of about 3-4 cm proximal to the pylorus. The stomach was then divided transversely with one Endo ELAINE-45 purple and three ELAINE-60 articulating purple loads using the Springbot stapler and loads. Every effort was made that the gastric sleeve had a tubular shape and an even caliber throughout. Once the sleeve resection was completed, the staple line of the gastric sleeve was reinforced with Hemoclips. The resected stomach was retrieved without difficulty from the Tamir port. A gastropexy was then performed in order to prevent postoperative GERD and partial gastric volvulus. Several interrupted 2.0 Surgidac sutures were placed between the sleeve's staple line and the previously divided greater omentum and gastro-colic ligament using the Endo-Stitch device. ?An upper endoscopy was performed. There was no narrowing at the GE junction. The scope was easily advanced all the way to the pylorus which was clearly visualized. There was no narrowing anywhere and the sleeve's caliber was even throughout. The sleeve's staple line was inspected and there was no evidence of ischemia, bleeding or dehiscence. At that point the gastroscope was withdrawn from the patient?s mouth while we were decompressing the bowel and the stomach from any remaining air. I looked into the lesser sac to see how the sleeve was situating and it was situating well. There was no bleeding from the staple line, spleen, or short gastric vessels. The Mediflex retractor was removed, and the undersurface of the liver was inspected and there was no bleeding. The patient was placed in supine position. I closed the fascial defect of the 12 mm port site with a figure of eight #1 Polysorb suture. Then 30cc Ropivacaine plain with 10 mg of Dexamethasone were used to infiltrate the fascial closure as well as all skin incisions. At this point, the abdomen was deflated, all ports were removed under direct vision, and no bleeding was noted from any of the port sites. The skin incisions were irrigated with saline and were closed with 4-0 absorbable monofilament sutures. Steri-Strips and OpSites were used to cover all incisions. The patient was extubated and was transferred in stable condition to the recovery room for further care. I was present and performed all maciel parts of the procedure. Ms. Best was the campus administrative assistant. There were no residents to assist with this case. Michele Ibarra MD, PhD, FACS Surgeon: Arsalan Ibarra MD Anesthesia: GETA, local and other (TAP block) Was an Academy Director used for this Procedure?: No Academy Director: Gracia Best Estimated blood loss (mL): 10 IV fluids (mL): 1,800 Urine output (mL): 0 (No Mclean to record output) Pathology: other (1) Stomach) Condition: stable Disposition: PACU
[2024-11-29] MEDS: ceFAZolin Sodium/Dextrose,Iso 2 GM/50 ML PIGGYBACK IV ×2 (12:30→17:01)
[2024-11-29] MEDS: Acetaminophen 1,000 MG/100 ML PIGGYBACK 400 MG IV (12:43)
--- NOTE | 2024-11-29 14:57 | PM.DS ---
DS: Providers Provider Date of Service: 11/30/24 Date of admission: 11/29/24 10:05 Date of discharge: 11/30/24 Primary care physician: Karla Mckinney MD DS: Summary Hospital Course Hospital Course: ADMITTING DIAGNOSIS: morbid obesity, asthma DISCHARGE DIAGNOSIS: same, s/p laparoscopic sleeve gastrectomy and gastropexy PAST SURGICAL HISTORY:? none PROCEDURE: upper endoscopy, laparoscopic sleeve gastrectomy and gastropexy DISCHARGE SUMMARY: History of Present Illness: The patient is a 24 year-old woman with a BMI of?50.4 kg/m2 and associated co-morbidities as described above. The patient had extensive work-up, lost?24.4 lbs preoperatively and was electively scheduled for laparoscopic, possible open sleeve gastrectomy and gastropexy. Risks and complications of the surgery were discussed with the patient in advance, particularly the possibility of , pulmonary embolism, anastomotic leak, bleeding, bowel injury, GERD, cardiac, renal or pulmonary complications. The patient understood all the risks and was in agreement with the surgical plan. Hospital Course: The patient underwent an uneventful laparoscopic sleeve gastrectomy with gastropexy on the day of admission. Postoperatively, the patient was transferred to the surgical floor. The patient received IV acetaminophen and IV Dilaudid for pain control. Patient was started on bariatric phase 1 diet POD #0. On postoperative day one, the patient was feeling well without nausea, vomiting, fevers, or tachycardia. The patient had some mild incisional pain and the abdomen was soft.? ? On the morning of postoperative day one, the patient was continued on 1 ounce of water or ice every half hour. During the day, the patient did fairly well, having some incisional pain, but able to ambulate adequately and to tolerate liquids well. Since the patient is doing well, we decided that the patient was ready to be discharged. The patient was given instructions to follow-up in office next week and to call the office for any fever over 101, persistent abdominal pain, nausea, vomiting, GERD, symptoms of DVT such as calf tenderness, or leg swelling, or pulmonary embolism such as chest pain or shortness of breath.? The patient was also instructed to drink 40-60 ounces of liquids per day using the 1-ounce cups. The patient had been given prescriptions for Tylenol for pain, Zofran prn for nausea, and pantoprazole and carafate previously. The patient was encouraged to ambulate and use the incentive spirometer. The patient was allowed to shower, but no baths, and encouraged to stay active at home. All of these instructions were given to the patient personally. All questions were answered and the patient understood all instructions, the instructions were also given to the patient in print. Time Attestation Discharge Coordination Time (in mins): 30 Quality: Safe Use of Opioids Does Pt have an Active Cancer Diagnosis on the Problem List?: No Quality: Stroke Does the patient have a stroke diagnosis?: No Physical Exam Vital Signs: Vital Signs: Last Vital Signs Temp 98.1 F 11/29/24 14:32 Pulse 78 11/29/24 14:47 Resp 18 11/29/24 14:47 BP 145/88 H 11/29/24 14:47 Pulse Ox 100 11/29/24 14:47 O2 Del Method Nasal Cannula 11/29/24 14:47 O2 Flow Rate 2 11/29/24 14:47 BMI result Body Mass Index 50.4 DS: Data Data Completed and Pending Pending studies at discharge: Pending at discharge 11/29/24 13:57 Surgical [PTH] Routine Labs on day of discharge: Laboratory Results - last 24 hr 11/29/24 10:10 Urine Test NEGATIVE Discharge Plan Discharge Anticipated Discharge Date/Time: 11/30/24 10:00 Patient Disposition: Home, Self-Care Discharge Diagnosis: s/p laparoscopic sleeve gastrectomy with gastropexy Referrals: Karla Lincoln MD [Primary Care Provider] - 1 Week Discharge Medications: Continued albuterol sulfate [Ventolin HFA] 90 mcg/actuation HFA aerosol inhaler 2 puff inhalation Q6H PRN (Reason: wheezing) pantoprazole 40 mg tablet,delayed release (DR/EC) 40 mg PO DAILY Qty: 90 0RF sucralfate 100 mg/mL suspension 10 ml PO BID Qty: 600 2RF ondansetron 4 mg tablet,disintegrating 4 mg PO Q12H Qty: 20 0RF Rx Instructions: Only take one every 12 hours as needed if you have nausea Discontinued cholecalciferol (vitamin D3) 125 mcg (5,000 unit) capsule 125 mcg PO DAILY Qty: 90 0RF mecobalamin (vitamin B12) 1,000 mcg tablet,disintegrating 1,000 mcg sublingual DAILY Qty: 90 0RF Rx Instructions: place tablet under tongue and allow to dissolve for at least30 secs before swallowing vitamin A palmitate 3,000 mcg (10,000 unit) capsule 10,000 unit PO DAILY Qty: 60 0RF Discharge Orders: Discharge Order (Routine); Ordered 11/30/24 Ordered By: Gracia Best Activity on Discharge: No heavy lifting Stand Alone Forms: Patient Portal Discharge page Print Language: Arabic Care Plan Goals: weight loss Health Concerns: morbid obesity Plan of Treatment: No tub baths, sex or returning to work until discussed at first post op appointment. No alcohol, tobacco or illegal drug use. Continue to use incentive spirometer hourly while awake. Walk in home for 5- 10 minutes every 2 hours during the first week. Wear abdominal binder with activity. Follow all meal plan instructions from your bariatric surgeon. Review bariatric handbook and call with any questions. Discharge Instructions 1. Please call your doctor or come back to the emergency room should any new symptoms arise. 2. Activity: abstain from alcohol,? limited stair climbing, no bending, no driving, no exercise, no illicit substances, no lifting, no sex, no tub bath, no work. 4. Diet: follow your bariatric surgeon's recommendations for advancing diet. 5. Dressing Change/Wound Care: Your incisions are covered with waterproof dressings. You can shower with these and pat dry. Do not rub over dressings or incisions. If the area is tender, you may apply an ice pack for short intervals (no more than 20 minutes on, followed by at least 20 minutes off). Do not apply heat. Do not use creams, lotions, or topical antibiotics unless instructed to do so by your surgeon. 6. Call your doctor if: - Your temperature exceeds 101.5 F - You experience excessive pain or swelling - You have an unexpected reaction to medication - You have excessive bleeding - You experience continued vomiting/nausea - Your incision begins to separate - Your incision shows signs of infection such as increased redness, swelling, excessive pain, heat, or drainage (light blood or clear fluid is normal) General instructions: No lifting greater than 10 lbs for the next 6 weeks. No driving within 24 hours of taking narcotic pain medications. If you do not move your bowels in the next 2 days, please take milk of magnesia over the counter. Please follow the post op diet and do not advance your diet until instructed by your surgeon or until you are seen in the office in about 1 week. Please walk around your home every hour or two to prevent blood clots from forming in your legs. You do not need to wake from sleeping to walk. Please sleep in a bed or couch to prevent kinking at the hips and knees. Please take your incentive spirometer (your lung information technology architect) home with you and use it for the next few days to prevent pneumonias. You may shower; no hot tubs, baths or swimming pools. Please make sure you are consuming 40-60 ounces of total fluids per day. Avoid all carbonation. Please call the office with any questions or concerns such as increasing abdominal pain, fever, chills, shortness of breath, chest pain, leg pain or swelling, or redness or drainage from your incisions. Do not hesitate to contact the office with any questions at . The patient's medical history has been reviewed and they are considered low risk for post op DVT and therefore DVT prophylaxis is not considered necessary. Travel after surgery was reviewed. The patient has not disclosed any travel plans during the first 30 days after surgery and they have been advised that within the first 30 days after surgery any bus, plane, train or car travel over 2 hours in duration is contraindicated due to the possibility of developing blood clots from immobility. Any travel, needs to include periods of ambulation of 10 minutes in duration every 2 hours.? The patient was instructed to discuss any plans for travel during this period with their bariatric surgeon. Assessment: s/p laparoscopic sleeve gastrectomy with gastropexy
--- NOTE | 2024-11-29 15:26 | PHA.MEDREC ---
Addendum entered by James Ramirez RP 11/29/24 17:06: med rec checked by [facility] Original Note: Pharmacy Consult ? Medication Reconciliation Pharmacy has reviewed the medication reconciliation done by nursing. claims match med list.
[2024-11-29 16:18] LABS: Hematocrit 38.7 % (37.0-47.0); Hemoglobin 12.9 g/dl (12.0-16.0)
[2024-11-29 16:29] LABS: Anion Gap 15 (12-20); Blood Urea Nitrogen 7 mg/dL (9-16); Carbon Dioxide 23 mmol/L (22-29); Chloride 104 mmol/L (96-108); Creatinine Clr Calc Pharmacy 154.4; Estimated Glomerular Filt Rate > 60; Glucose Random 149 mg/dL (60-115); Potassium 4.5 mmol/L (3.3-5.1); Sodium 137 mmol/L (135-145)
[2024-11-29] MEDS: Lactated Ringers 1,000 ML 150 ML IVCONT ×2 (16:49→23:58)
[2024-11-29] MEDS: Acetaminophen 1,000 MG/100 ML PIGGYBACK 16.7 MG IV ×2 (18:36→23:59)
[2024-11-29] MEDS: Famotidine/PF 20 MG/2 ML VIAL IVPUSH (21:01)
[2024-11-30 00:30] VITALS: RESP 18
[2024-11-30 02:59] VITALS: BP 122/60; PULSE 71; RESP 18; TEMP 37.2; O2SAT 96
[2024-11-30] MEDS: Acetaminophen 1,000 MG/100 ML PIGGYBACK 16.7 MG IV (06:06)
[2024-11-30] MEDS: Lactated Ringers 1,000 ML 150 ML IVCONT (06:11)
[2024-11-30 06:58] LABS: MANUAL DIFF FLAG NO
[2024-11-30 07:03] LABS: Hematocrit 37.6 % (37.0-47.0); Hemoglobin 12.9 g/dl (12.0-16.0); Imm Gran Abs Auto 0.02 X10*3/uL (0.00-0.03); Imm Gran Pct Auto 0.4 % (0.0-0.4); Lymphocytes Absolute Auto 0.7 X10*3/uL (1.2-4.9); Lymphocytes Percent Auto 13.4 % (20-40); Mean Corpuscular HGB Conc 34.3 g/dl (31.0-35.0); Mean Corpuscular Hemoglobin 28.6 pg (27.0-33.0); Mean Corpuscular Volume 83.4 fL (80.0-98.0); Mean Platelet Volume 11.5 fL (9.4-12.3); Monocytes Absolute Auto 0.2 X10*3/uL (0.1-1.2); Monocytes Percent Auto 3.3 % (2-11); Neutrophils Absolute Auto 4.3 x10*3/uL (2.0-8.3); Neutrophils Percent Auto 82.9 % (45-73); Platelet Count 256 X10*3/uL (160-400); Red Blood Count 4.51 X10*6/uL (4.20-5.50); Red Cell Distribution Width 12.2 % (11.0-16.0); White Blood Count 5.2 X10*3/uL (4.8-10.8)
[2024-11-30 07:20] LABS: Anion Gap 13 (12-20); Blood Urea Nitrogen 6 mg/dL (9-16); Calcium 9.1 mg/dL (8.4-10.2); Carbon Dioxide 23 mmol/L (22-29); Chloride 105 mmol/L (96-108); Creatinine Clr Calc Pharmacy 165.2; Estimated Glomerular Filt Rate > 60; Glucose Random 120 mg/dL (60-115); Potassium 5.2 mmol/L (3.3-5.1); Sodium 136 mmol/L (135-145)
[2024-11-30 07:37] VITALS: BP 131/77; PULSE 63; RESP 16; TEMP 36.5; O2SAT 99
[2024-11-30] MEDS: Famotidine/PF 20 MG/2 ML VIAL IVPUSH (08:40)
[2024-11-30] MEDS: 0.9 % Sodium Chloride Flush 3 ML SYRINGE IVFLUSH (08:40)
--- NOTE | 2024-11-30 10:54 | P.PNGS_ITS ---
Subjective Subjective Date of Service: 11/30/24 Interval history: Pt doing well this morning. Denies nausea, pain. Has been tolerating sips of water. Ambulated, voided. Physical Exam 2 Vital Signs: Vital Signs: Last Vital Signs Temp 97.7 F 11/30/24 07:37 Pulse 63 11/30/24 07:37 Resp 16 11/30/24 07:37 BP 131/77 11/30/24 07:37 Pulse Ox 99 11/30/24 07:37 O2 Del Method Room Air 11/30/24 07:37 O2 Flow Rate 2 11/29/24 15:02 BMI result Body Mass Index 53.6 Const: General: cooperative, comfortable and no acute distress O rientation/consciousness: patient oriented x3 GI: Other: soft, appropriate tenderness at incisions, nondistended, dressings c/d/i, abdominal binder in place Neuro: General: patient oriented x3 Objective Data Active Medications Albuterol Sulfate (Albuterol Sulfate 90 Mcg 8 Gm Inhaler) 2 puff INHALE Q6H PRN PRN Reason: wheezing Famotidine (Famotidine/Pf 20 Mg/2 Ml Vial) 20 mg IVPUSH BID [facility] Last Admin: 11/30/24 08:40 Dose: 20 mg Documented By: INDY Lactated Ringer's (Lr) 1,000 mls @ 150 mls/hr IVCONT .Q6H40M [facility] Last Admin: 11/30/24 06:11 Dose: 150 mls/hr Documented By: JAD Acetaminophen (Ofirmev) 1,000 mg in 100 mls @ 16.7 mls/hr IV .Q6H [facility] Last Admin: 11/30/24 06:06 Dose: 16.7 mls/hr Documented By: AJD Metoclopramide HCl (Metoclopramide Hcl 10 Mg/2 Ml Vial) 10 mg IVPUSH Q6H PRN PRN Reason: Nausea Ondansetron HCl (Ondansetron Hcl 4 Mg/2 Ml Vial) 4 mg IVPUSH Q8H PRN PRN Reason: Nausea Sodium Chloride (0.9 % Sodium Chloride Flush 3 Ml Syringe) 3 ml IVFLUSH QSHIFT [facility] Last Admin: 11/30/24 08:40 Dose: 3 ml Documented By: INDY Labs 11/30/24 06:17 11/30/24 06:17 Labs: Laboratory Results - last 24 hr 11/29/24 11/30/24 16:08 06:17 MCV 83.4 MCH 28.6 MCHC 34.3 RDW 12.2 Plt Count 256 MPV 11.5 Immature Gran % (Auto) 0.4 Neut % (Auto) 82.9 H Lymph % (Auto) 13.4 L [place] % (Auto) 3.3 Eos % (Auto) 0.0 Baso % (Auto) 0.0 Lymph # (Auto) 0.7 L [place] # (Auto) 0.2 Eos # (Auto) 0.0 Baso # (Auto) 0.0 Abs Immat Gran (auto) 0.02 Absolute Neuts (auto) 4.3 Absolute Nucleated RBC 0.000 Nucleated RBC % (auto) 0.0 Anion Gap 15 13 Estim Creat Clear Calc 154.4 165.2 Estimated GFR > 60 > 60 Random Glucose 149 H 120 H Calcium 9.0 9.1 Procedures Date of Service Date of Service: 11/30/24 Progress Note: A&P Assessment and plan (1) Morbid obesity: Status: Acute (2) S/P laparoscopic sleeve gastrectomy: Status: Acute Plan Pt doing well POD1 after sleeve gastrectomy. Labs reviewed. She has discussed with Dr. Ibarra the plan upon discharge and states understanding. Reiterated the importance of following postop instructions exactly and communicating as directed. Will take home syringe for pacing of 2ml/min PO intake. Discharge home today, follow up next week in office. Time Spent With Patient Time: Total time managing care of this patient today __30__ minutes. Quality Stroke Does the patient have a stroke diagnosis?: No VTE Prior VTE?: No VTE Risk Level:: Surgical - moderate VTE Device Contraindication: N/A - Device Ordered VTE Drug Contraindication: Treatment Not Indicated
[2024-11-30 12:26] VITALS: BP 133/74; PULSE 85; RESP 14; TEMP 37.1; O2SAT 98
--- NOTE | 2024-11-30 16:28 | HO.POSTANES ---
Post Anesthesia Evaluation Post Anesthesia Evaluation Date of Service: 11/30/24 Vital Signs: Vital Signs Temp Pulse Resp BP Pulse Ox O2 Del Method 11/30/24 12:26 98.7 F 85 14 133/74 98 Room Air 11/30/24 07:37 97.7 F 63 16 131/77 99 Room Air Anesthesia: General Endotracheal-GETA Mental Status: Awake Pain Control: Satisfactory Nausea/Vomiting: None Hydration: Adequate Anesthesia-Related Issues: No Anes. Related Issues
== END 2024-11-30 12:53 | disposition home or self-care (01) | DRG 403 ==
LOC: HO.SSSA 14:55 → HO.S3 15:11
PROVIDERS: Nurse Practitioner; Physician Assistant Surgical; Admitting Provider Surgery; PCP Internal Medicine; Visit Provider Surgery
PROC: 0DB64Z3 Excision of Stomach, Percutaneous Endoscopic Approach, Vertical (ICD-10-PCS; CPT 43845; principal; 2024-11-29 12:00)
DX: E66.01 Morbid (severe) obesity due to excess calories (principal); K74.00 Hepatic fibrosis, unspecified; J45.909 Unspecified asthma, uncomplicated; Z68.43 Body mass index [BMI] 50.0-59.9, adult; K21.9 Gastro-esophageal reflux disease without esophagitis; K76.0 Fatty (change of) liver, not elsewhere classified; Z79.899 Other long term (current) drug therapy
CPT/HCPCS: 36415; 80048; 81025; 85014; 85018; 85025; 86850; 86900; 86901; 88304; 88305; 88307; 88342; A4649; C9145; J0131; J0690; J1100; J1171; J1308; J2003; J2405; J2704; J2795; J3010; J7120

== ENCOUNTER → 2024-11-29 10:05 | Outpatient (BNV) | payer MEDICAID, SELFPAY | PROVIDERS: Admitting Provider Surgery; PCP Internal Medicine; Visit Provider Surgery | DX: E66.01 Morbid (severe) obesity due to excess calories (principal); E66.813 Obesity, class 3; Z68.43 Body mass index [BMI] 50.0-59.9, adult | CPT/HCPCS: 43659; 43775; 99024; 99499 ==

== ENCOUNTER 2024-12-04 12:19 | Outpatient (AMB) | payer MEDICAID, SELFPAY ==
--- NOTE | 2024-12-04 12:19 | A.OFFVIS_ITS ---
VS Expanded 12/04/24 12:33 BP 135/63 Blood Pressure Location Rt brachial Blood Pressure Position Sitting Pulse 87 Pulse Source Pulse Oximeter Temp 96.9 F Temperature Source Temporal Artery Scan Pulse Oximetry 98 Oxygen Delivery Method Room Air Height 5 ft 1 in Weight 257 lb BMI 48.6 Body Fat % 51.0 Body Fat Mass 131.0 Fat Free Mass 125.8 Visceral Fat Rating 15.0 Body Water % 35.4 Body Water Mass 90.8 Muscle Mass/Score 119.4 Basal Metabolic Rate/Score 1,872 Intake Visit Reasons: OV PO LSG 11/29/2024 Clinical Dietetic Technician Required: Yes Clinical Dietetic Technician Name: Martin Rashid)- [id number] Information Interpreted: clinical only Allergies No Known Allergies Allergy (Verified 12/04/24 12:35) Medication List - Last Reconciled 12/04/24 by PAPO Carrington albuterol sulfate 90 mcg/actuation (Ventolin HFA) 2 puffs inhalation Q6H PRN ondansetron 4 mg PO Q12H pantoprazole 40 mg PO DAILY sucralfate 10 mL PO BID HPI Comments Details: Pt is 5d s/p LSG 11/29/2024. Pain controlled. Denies pain. Tolerating 3 Celebrate shakes with 1 scoop each, using almond milk. Reports hydration is adequate- drinking water, 35oz. [facility] Medical History (Updated 12/01/24 @ 00:01 by Nirmala Corrales) Asthma Morbid obesity Surgical History (Updated 12/04/24 @ 12:35 by Nisha Gonzales CMA) S/P laparoscopic sleeve gastrectomy History of esophagogastroduodenoscopy (EGD) Family History Mother Arthritis Father No problems noted. Social History Household Members: Family Housing: House Are you a primary daycare assistant to a significant other at home: No Do you presently have visiting nurse or other home services: No Alcohol intake: never Patient Tobacco Use Status: Never used Tobacco Physical Exam Const General: cooperative, comfortable and no acute distress Orientation/consciousness: patient oriented x3 GI Other: soft, nontender, nondistended, steri-strips c/d/i Neuro General: patient oriented x3 Assessment & Plan Assessment & Plan (1) Morbid obesity: Code(s): E66.01 - Morbid (severe) obesity due to excess calories Category: Medical (2) S/P laparoscopic sleeve gastrectomy: Code(s): Z98.84 - Bariatric surgery status Category: Surgical Plan May shower tomorrow but no bath or submersion of abdomen in water. May start exercise at 1wk postop.? No abdominal exercises x 6 weeks. Abdominal binder for the next 2 weeks with activity or exercise. Continue meal plan per Dr Madison Reviewed pantoprazole and carafate dosing. Reminded of the pace of drinking 2 mL/min or 1oz per 15 min. Will be emailed link for post op video for review.
[2024-12-04 12:33] VITALS: BP 135/63; PULSE 87; TEMP 36.1; O2SAT 98; BMI 48.6
--- OUTSIDE RECORDS SUMMARY | 2024-12-04 14:10 | XMS_ITS | Encounter Summary ---
Author Organization [employer] Address [address] [facility] [address] [place] [address] Care Team Providers Care Assistant Press Operator Offset Name Role Phone Karla Lincoln MD Primary Care Provide r Encounter Details Date Type Department Care Team (Late Contact Info) Description 01/08/2024 Orders Only [facility] [address] [place] [phone] Tereza Bowen CN [address] [place] [address] Social History Tobacco Use Types Packs/Day Years [...] Department Care Team (Late Contact Info) Description 12/12/2024 2:00 PM EDT Office Visit [facility] [address] [place] [phone] Karla Lincoln MD [address] [place] [phone] 01/02/2025 10:45 AM EDT Office Visit [facility] [address] [place] [phone] Karla Lincoln MD [address] [place] [address] documented as of this encounter Visit Diagnoses Not on filedocumented in this encounter Care Teams Assistant Press Operator Offset Relationship Specialty Start Date End Date Karla Lincoln MD [address] [place] [phone] PCP - General Internal Medicine 07/04/24 documented as of this encounter
== END 2024-12-04 13:14 | disposition home or self-care (01) ==
LOC: HO.HBS 12:19
PROVIDERS: PCP Internal Medicine; Visit Provider Physician Assistant Surgical
DX: E66.01 Morbid (severe) obesity due to excess calories (principal); Z68.42 Body mass index [BMI] 45.0-49.9, adult; Z90.3 Acquired absence of stomach [part of]; Z98.84 Bariatric surgery status
CPT/HCPCS: 99024

== ENCOUNTER → 2024-12-04 12:19 | Outpatient (BNVA) | payer MEDICAID, SELFPAY | PROVIDERS: PCP Internal Medicine; Visit Provider Physician Assistant Surgical | DX: E66.01 Morbid (severe) obesity due to excess calories (principal); Z68.42 Body mass index [BMI] 45.0-49.9, adult; Z90.3 Acquired absence of stomach [part of] | CPT/HCPCS: 99212 ==

== ENCOUNTER 2024-12-05 12:46 | Outpatient (AMB) | payer OTHER, SELFPAY ==
--- NOTE | 2024-12-05 12:30 | MHC.WMTHER ---
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 Social History Household Members: Family Housing: House Are you a primary intensive care specialist to a significant other at home: No Do you presently have visiting nurse or other home services: No Alcohol intake: never Patient Tobacco Use Status: Never used Tobacco Behavioral Health Assessment Weight Management Therapy Therapy Notes Details Subjective: The patient underwent bariatric (weight loss) surgery on 11/29/2024 and reports a smooth recovery. PT denies experiencing any pain and describes his mood as generally positive. PT identifies her partner and his family as primary sources of support. She denies experiencing hunger and reports adherence to all postoperative instructions, however feels she would like to continue meeting with this provider as she wants to have support in place for every phase in her weight-loss journey. Objective: Patient presented for a postoperative behavioral health appointment via telehealth. Discussed current functioning and recovery status. Provided psychoeducation on the emotional and psychological adjustments commonly experienced following bariatric surgery. Explored progress, goals, and support systems. Emphasized strategies for long-term success, including the importance of ongoing communication with healthcare providers. The PHQ-9 was administered to screen for depressive symptoms. Assessment/Response: Mental Status: Within Normal Limits (WNL) Risk Identified/Reported: None The patient was engaged throughout the session and demonstrated insight and motivation. PHQ-9 results indicated no current concerns. Food/Weight/Diet Expectations of change The patient began the program on 07/25/2024 at a starting weight of 291 lbs. The initial goal was to lose 10% of her body weight (~31 lbs) prior to surgery, with a target weight of 260 lbs. As of 10/21/2024, the patient weighed 285 lbs, and as of 11/05/2024, her weight was 276 lbs, reflecting steady progress. Weight on surgery day 11/29/2024: 267Lbs PO weight 12/04/24: 257Lbs PT is implementing the following: Current meal plan: goal is 40oz at day - 3 shakes + water. 2Ml every 15 min. Exercise plan: cleared to walk. Scale: yes Communication with provider: Daily. Questionnaires PHQ-9 Over the last 2 weeks, how often have you been bothered by any of the following problems? 1. Little interest or pleasure in doing things: not at all 2. Feeling down, depressed, or hopeless: not at all 3. Trouble falling or staying asleep, or sleeping too much: not at all 4. Feeling tired or having little energy: not at all 5. Poor appetite or overeating: not at all 6. Feeling bad about yourself - or that you are a failure or have let yourself or your family down: not at all 7. Trouble concentrating on things, such as reading the newspaper or watching television: not at all 8. Moving or speaking so slowly that other people could have noticed. Or the opposite - being so fidgety or restless that you have been moving around a lot more than usual: several days (within the expected as she had a surgery last week. ) 9. Thoughts that you would be better off or of hurting yourself in some way: not at all Total score: 1 Depression Screening Interpretation: Negative Depression Screening Done: Yes 53251 - PHQ-9 Billing: Yes Source: Developed by Drs. Jaun A Escobar, Jasmin Freed, Enrique Clarke and colleagues, with an educational darren from [employer]. Assessment & Plan Assessment & Plan (1) Adjustment disorder: Code(s): F43.20 - Adjustment disorder, unspecified (2) S/P laparoscopic sleeve gastrectomy: Onset Date: 11/29/24 Comment: Dr. Meraz Code(s): Z98.84 - Bariatric surgery status Plan F/up in 1 month for support with post-op journey. Next krysten: 01/02/25 at 10am - video Telehealth Telehealth Telehealth Platform: [employer] Location of provider rendering services: other Location of patient: address on file Patient Identification confirmed using: Name, : Yes Telehealth method: voice only Patient verbally consented to treatment: Yes Patient verbally consented to billing insurance company: Yes Patient informed of any privacy concerns related to visit: Yes Minutes spent on Phone/Video with Pt.: 30 Coding Level of Care Code Established Pt Tele Psytx 30 mins (46552) Patient Type Established Diagnoses Adjustment disorder F43.20 S/P laparoscopic sleeve gastrectomy Z98.84 Additional Codes PHQ-9 - 64812 - PHQ-9 Billing: Yes ([id number]) Time Spent (min) 30
--- OUTSIDE RECORDS SUMMARY | 2024-12-05 13:50 | XMS_ITS | Encounter Summary ---
Author Organization [employer] Address [address] [facility] 7t [place] [address] Care Team Providers Care Internal Consultant Name Role Phone Karla Lincoln MD Primary Care Provide r Encounter Details Date Type Department Care Team (Late Contact Info) Description 01/08/2024 Orders Only [facility] MED[facility]INE [address] [place] [phone] Tereza Bowen CN [address] [place] [address] Social History Tobacco Use Types Packs/Day Years [...] Description 12/12/2024 2:00 PM EDT Office Visit [facility] [address] [place] [phone] Karla Lincoln MD [address] [place] [phone] 01/02/2025 10:45 AM EDT Office Visit [facility] [address] [place] [address] [phone] Karla Lincoln MD [address] [place] [address] documented as of this encounter Visit Diagnoses Not on filedocumented in this encounter Care Teams Internal Consultant Relationship Specialty Start Date End Date Karla Lincoln MD [address] [place] [address] [phone] PCP - General Internal Medicine 07/04/24 documented as of this encounter
== END 2024-12-05 13:04 | disposition home or self-care (01) ==
LOC: HO.HBST 12:46
PROVIDERS: PCP Internal Medicine; Visit Provider Counselor Mental Health
DX: F43.20 Adjustment disorder, unspecified (principal); Z98.84 Bariatric surgery status
CPT/HCPCS: 90832

== ENCOUNTER → 2024-12-05 12:46 | Outpatient (BNVA) | payer OTHER, MEDICAID, SELFPAY | PROVIDERS: PCP Internal Medicine; Visit Provider Counselor Mental Health ==

== ENCOUNTER 2024-12-18 10:17 | Emergency (ER) | payer MEDICAID, SELFPAY ==
[2024-12-18] VITALS (10 sets, daily range): BP systolic 85–119; BP diastolic 20–71; PULSE 59–79; RESP 16–17; TEMP 36.3–36.8; O2SAT 98–100; BMI 46.7
--- NOTE | ~2024-12-18 | XR_ITS ---
CLINICAL HISTORY: hypotension, vomiting 1 view chest x-ray Comparison: None provided Findings: No consolidation or effusion. Normal size heart. No acute fracture. IMPRESSION: 1. No acute findings. This document has been electronically signed by: Bg Jimenez MD on 12/18/2024 18:06:05
--- NOTE | ~2024-12-18 | CT_ITS ---
EXAMINATION: CT ABDOMEN PELVIS WITH IV CONTRAST HISTORY: nausea and vomiting s/p gastric sleeve COMPARISON: There are no prior studies for available comparison. TECHNIQUE: CT scan of the abdomen and pelvis was performed following administration of 85 mL Omnipaque 350 using standard departmental protocol. Coronal and sagittal reformatted images were generated and reviewed. Oral contrast material was not administered at the request of the referring physician. This CT exam was performed with one or more of the following dose reduction techniques: automated exposure control, adjustment of the mA and/or kV according to patient size, use of iterative reconstruction technique. DLP: 1200 mGy-cm FINDINGS: LOWER CHEST: The visualized lung bases are clear. There is no pleural effusion. CARDIOVASCULATURE: The heart is normal in size. There is no pericardial effusion. LIVER: The liver is normal in size and contour. No liver mass is identified. The hepatic and portal veins are patent. GALLBLADDER / BILE DUCTS: The gallbladder is unremarkable. There is no intra or extrahepatic biliary ductal dilatation. SPLEEN: The spleen is normal in size. No focal splenic lesion is identified. PANCREAS: The pancreas is unremarkable in appearance. ADRENAL GLANDS: Within normal limits. KIDNEYS/RETROPERITONEUM: No renal calculi are identified. There is no hydronephrosis. No renal masses are identified. LYMPH NODES: No abdominal or pelvic lymphadenopathy. VASCULATURE: The abdominal aorta is normal in caliber. MESENTERY/PERITONEUM: No free fluid. No masses. There is no free intraperitoneal gas. STOMACH: The patient is status post gastric sleeve surgery. SMALL BOWEL: The small bowel is normal in caliber. COLON: The colon is unremarkable. APPENDIX: Normal. URINARY BLADDER/PELVIC ORGANS: The urinary bladder is collapsed, limiting evaluation. The uterus and ovaries are unremarkable. BONES / SOFT TISSUES: No suspicious bony or soft tissue abnormalities. CT/CT abdomen pelvis w IV con IMPRESSION: Status post gastric sleeve surgery. Otherwise unremarkable contrast-enhanced CT of the abdomen and pelvis. Electronically signed by: Juan A Mckeon MD 12/18/2024 01:51 PM EDT
--- NOTE | 2024-12-18 10:42 | ED.GENADULT ---
HPI - General Adult General Chief complaint: Nausea/Vomiting/Diarrhea Stated complaint: Vomiting, recent surgery Time Seen by Provider: 12/18/24 10:42 Source: patient, RN notes reviewed, old records reviewed and automotive parts interpreter Mode of arrival: ambulatory Limitations: language barrier History of Present Illness ED Provider: Flaca HPI narrative: Patient is a 24-year-old Citizen [place]-speaking female with history of laparoscopic sleeve gastrectomy with Dr. Moreno on 11/29 presenting to the emergency department with complaint of nausea, vomiting and feeling lightheaded since 12/10. She denies abdominal pain, diarrhea, fevers. States emesis has been nonbloody, nonbilious. Reports that she contacted the bariatric surgery office yesterday but has not heard back from anyone yet. complaint: nausea, vomiting, lightheaded Onset (ago): week(s) Related Data Home Medications ?Medication ?Instructions ?Recorded ?Confirmed albuterol sulfate 90 mcg/actuation 2 puff inhalation Q6H PRN wheezing 07/15/24 12/04/24 aerosol inhaler (Ventolin HFA) Previous Rx's ?Medication ?Instructions ?Recorded ondansetron 4 mg disintegrating 4 mg PO Q12H nausea and vomiting 11/22/24 tablet #20 tabs pantoprazole 40 mg tablet,delayed 40 mg PO DAILY #90 tabs 11/22/24 release sucralfate 100 mg/mL oral 10 ml PO BID #600 mL 11/22/24 suspension ondansetron 4 mg disintegrating 4 mg PO Q8H PRN nausea and 12/18/24 tablet vomiting #10 tabs Allergies Allergy/AdvReac Type Severity Reaction Status Date / Time No Known Allergies Allergy Verified 12/18/24 10:32 Review of Systems Review of Systems: As per hPI Yes all other systems are reviewed and are negative Constitutional: Constitutional: Reports as per HPI PMFSH Past Medical History Medical History (Updated 12/18/24 @ 16:34 by Natalia Thayer NP) Asthma Morbid obesity Surgical History (Updated 12/05/24 @ 13:04 by Yamileth Starkey [facility]) 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 Social History Social History Household Members: Family Housing: House Are you a primary personal care worker to a significant other at home: No Do you presently have visiting nurse or other home services: No Alcohol intake: never Patient Tobacco Use Status: Never used Tobacco Smoked in Last 30 Days: No Use of substances other than those prescribed or required for medical reasons: No Advance Directives: No Advance Directives Information Provided: Yes Do you have a plan to hurt others: No Plan Patient : No Physical Exam ED Vital Signs: Vital Signs - 24 hr 12/18/24 10:28 12/18/24 13:08 12/18/24 13:11 Temperature 97.3 F 98.2 F Pulse Rate 79 59 Respiratory Rate 16 16 Blood Pressure 119/68 85/20 L 99/46 L Pulse Oximetry 98 100 Oxygen Delivery Method Room Air Room Air 12/18/24 14:01 12/18/24 16:30 12/18/24 18:13 Temperature 98.3 F Pulse Rate 66 60 66 Respiratory Rate 16 17 Blood Pressure 93/30 L 100/40 L 111/67 Pulse Oximetry 100 99 Oxygen Delivery Method Room Air Room Air 12/18/24 18:13 12/18/24 18:13 Temperature Pulse Rate 65 66 Respiratory Rate Blood Pressure 118/71 106/65 Pulse Oximetry Oxygen Delivery Method BMI result Body Mass Index 46.7 Vital signs have been reviewed and appear to be correct. Blood pressure normal. Heart rate normal. Respiratory rate normal. Temperature normal. Oxygen saturation normal. Const General: cooperative, healthy appearing and no acute distress Orientation/consciousness: oriented to person, oriented to place, oriented to time and patient oriented x3 Limitations: no limitations [facility] Head: Yes normocephalic and Yes atraumatic Ears: external ears normal General nose exam: Normal external nose present Face and sinus: Yes face symmetric Mouth: oropharynx normal and moist mucous membranes Throat: Yes uvula midline Eyes Pupils: Equal, round and reactive pupils present Neck Neck: Yes normal visual inspection and Yes supple Resp Effort & Inspection: normal respiratory effort and able to speak in complete sentences Auscultation: clear to auscultation bilaterally Cardio Rate: regular rate Rhythm: regular rhythm Heart sounds: S1 normal heart sound present and S2 normal heart sound present GI Other: Healing surgical incisions to abdomen are clean, dry, intact Palpation (GI): Soft to palpation and nontender Auscultation: normoactive bowel sounds General: Yes no CVA tenderness Back/Spine/Pelvis Back: no CVA tenderness Skin General skin exam: elasticity normal and turgor normal Neuro General: oriented to person, oriented to place, oriented to time, patient oriented x3, moves all extremities, no focal motor deficits and CN's II-XI intact bilaterally Cranial nerves: Yes Equal, round and reactive pupils present Cognition (Neuro): normal cognition Extrem General: Yes full ROM, Yes no pedal edema and Yes no calf tenderness Psych Mental Status: mental status grossly normal Affect: normal affect Thought process: Normal thought process present Medications Administered Discontinued Medications Generic Name Dose Route Start Last Admin Trade Name Freq PRN Reason Stop Dose Admin Sodium Chloride 1,000 mls @ 999 mls/hr 12/18/24 10:45 12/18/24 13:44 Ns IV 12/18/24 11:45 Infused .Q1H1M TONY Infusion Sodium Chloride 1,000 mls @ 999 mls/hr 12/18/24 14:30 12/18/24 16:36 Ns IV 12/18/24 15:30 Infused .Q1H1M TONY Infusion Iohexol 100 ml 12/18/24 13:36 12/18/24 13:36 Iohexol 350 Mg/Ml 100 Ml Infus..Btl IV 12/18/24 13:37 100 ml ONCE ONE Administration Ondansetron HCl 4 mg 12/18/24 10:43 12/18/24 11:02 Ondansetron Hcl 4 Mg/2 Ml Vial IVPUSH 12/18/24 10:44 4 mg ONCE ONE Administration Prochlorperazine Edisylate 10 mg 12/18/24 14:18 12/18/24 14:39 Prochlorperazine Edisylate 10 Mg/2 Ml Vial IVPUSH 12/18/24 14:19 10 mg ONCE ONE Administration Medical Decision Making Medical Decision Making MDM Narrative: Patient is a 24-year-old Citizen [place]-speaking female with history of laparoscopic sleeve gastrectomy with Dr. Moreno on 11/29 presenting to the emergency department with complaint of nausea, vomiting and feeling lightheaded since 12/10. On exam patient is awake, A+Ox3, VS WNL, afebrile, normal neurological exam without focal deficits, physical exam findings as above. Given reported symptoms and physical exam findings, initial differential includes but is not limited to obstruction, abscess, perforation, thrombus. Labs notable for mildly elevated transaminases with normal direct anteriorly, history of same in the past, negative hCG. Urinalysis is without evidence of infection. CT A/P notable for no acute abnormalities. My interpretation is in agreement with the radiologist's interpretation. Symptoms improved with IV fluids and antiemetics in the emergency department and patient able to tolerate p.o. fluids. Patient initially appearing to remain hypotensive despite fluid resuscitation, however, upon manual blood pressure RN noted difficulty obtaining a reading brachially but was able to easily obtain a reading radially. No orthostatic intolerance noted. Feel patient stable for discharge home the patient is in agreement with this. Will send prescription for Zofran and advised patient to follow-up with . Return precautions discussed at bedside. Patient verbalized understanding of and agreement with plan. In-person site interpreter was utilized for all interactions, assessments, and discussions. Differential Diagnosis Differential Diagnoses: The differential diagnosis associated with the presentation includes as per [facility] Admission/Observation Consideration of admission/observation: Escalation of care including admission/observation considered Patient would have been admitted to the hospital had their work up had any findings where hospital admission was appropriate and their clinical presentation warranted hospital admission. Lab Data [facility] Lab Attestation statement: I reviewed the patient's lab results. as per [facility] 12/18/24 10:57 12/18/24 10:57 Labs: Lab Results 12/18/24 12/18/24 Range/Units 10:57 14:47 WBC 6.4 (4.8-10.8) X10*3/uL RBC 5.15 (4.20-5.50) X10*6/uL Hgb 14.5 (12.0-16.0) g/dl Hct 42.5 (37.0-47.0) % MCV 82.5 (80.0-98.0) fL MCH 28.2 (27.0-33.0) pg MCHC 34.1 (31.0-35.0) g/dl RDW 12.7 (11.0-16.0) % Plt Count 276 (160-400) X10*3/uL MPV 11.8 (9.4-12.3) fL Immature Gran % (Auto) 0.3 (0.0-0.4) % Neut % (Auto) 64.6 (45-73) % Lymph % (Auto) 25.7 (20-40) % [place] % (Auto) 7.7 (2-11) % Eos % (Auto) 1.1 (0-4) % Baso % (Auto) 0.6 (0-2) % Lymph # (Auto) 1.6 (1.2-4.9) X10*3/uL [place] # (Auto) 0.5 (0.1-1.2) X10*3/uL Eos # (Auto) 0.1 (0.0-0.4) X10*3/uL Baso # (Auto) 0.0 (0.0-0.2) X10*3/uL Abs Immat Gran (auto) 0.02 (0.00-0.03) X10*3/uL Absolute Neuts (auto) 4.1 (2.0-8.3) x10*3/uL Absolute Nucleated RBC 0.000 (0.0-0.012) X10*3/uL Nucleated RBC % (auto) 0.0 (0.0-0.2) /100WBC Sodium 138 (135-145) mmol/L Potassium 3.7 D (3.3-5.1) mmol/L Chloride 100 (96-108) mmol/L Carbon Dioxide 23 (22-29) mmol/L Anion Gap 19 (12-20) BUN 8 L (9-16) mg/dL Creatinine 0.90 (0.5-1.4) mg/dL Estim Creat Clear Calc 112.8 Estimated GFR > 60 Random Glucose 99 (60-115) mg/dL Calcium 9.8 D (8.4-10.2) mg/dL Magnesium 1.7 (1.6-2.6) mg/dL Total Bilirubin 0.8 (0.0-1.0) mg/dL Direct Bilirubin 0.4 (0.0-0.5) mg/dL AST 58 H (5-31) U/L ALT 84 H (0-31) U/L Alkaline Phosphatase 85 (39-117) U/L Total Protein 8.2 H (6.5-8.0) g/dL Albumin 4.6 (3.5-5.0) g/dL Lipase 103 H (8-78) U/L Beta HCG, Quant < 2 mIU/mL Urine Color Yellow Urine Appearance Clear Urine pH 6.0 (5.0-9.0) Ur Specific [place] >= 1.030 H (1.005-1.025) Urine Protein Trace (Neg-Trace) mg/dL Urine Glucose (UA) Negative (Negative) mg/dL Urine Ketones 80 (Negative) mg/dL Urine Blood Negative (Negative) Urine Nitrite Negative (Negative) Ur Leukocyte Esterase Negative (Negative) Independent Interpretation I performed an independent interpretation of an: CT Scan Interpretation: No acute abnormalities noted on CT abdomen pelvis Radiology Impression Discussion of test interpretation with radiology: I have reviewed the radiologist's reading. Radiologist Impression: CT/CT abdomen pelvis w IV con IMPRESSION: Status post gastric sleeve surgery. Otherwise unremarkable contrast-enhanced CT of the abdomen and pelvis. External Record Review External record reviewed: Inpatient record, Office record and Outpatient record Prescription Management I considered prescription management with: Other Discharge Plan Discharge Clinical Impression: Nausea & vomiting Qualifiers: Vomiting type: unspecified Qualified Code(s): R11.2 - Nausea with vomiting, unspecified Patient Disposition: Home, Self-Care Instructions: Acute Nausea and Vomiting (DC) Additional Instructions: You were evaluated in the emergency department today for nausea and vomiting. Your labs and CT scan were reassuring. You are being prescribed ondansetron which you can take every 8 hours as needed for nausea. Follow up with Dr. Ibarra this week. Return to the emergency department if you are unable to tolerate fluids by mouth, develop fever, have blood in your vomit, or any other new or concerning symptoms. Prescriptions: New ondansetron 4 mg tablet,disintegrating 4 mg PO Q8H PRN (Reason: nausea and vomiting) Qty: 10 0RF No Action albuterol sulfate [Ventolin HFA] 90 mcg/actuation HFA aerosol inhaler 2 puff inhalation Q6H PRN (Reason: wheezing) pantoprazole 40 mg tablet,delayed release (DR/EC) 40 mg PO DAILY Qty: 90 0RF sucralfate 100 mg/mL suspension 10 ml PO BID Qty: 600 2RF ondansetron 4 mg tablet,disintegrating 4 mg PO Q12H Qty: 20 0RF Rx Instructions: Only take one every 12 hours as needed if you have nausea Referrals: Arsalan Ibarra MD [Physician, Bariatric Surgery] - 1 week Clinical Impression: Nausea & vomiting Print Language: Citizen [place]
[2024-12-18 11:02] LABS: MANUAL DIFF FLAG NO
[2024-12-18 11:04] LABS: Hematocrit 42.5 % (37.0-47.0); Hemoglobin 14.5 g/dl (12.0-16.0); Imm Gran Abs Auto 0.02 X10*3/uL (0.00-0.03); Imm Gran Pct Auto 0.3 % (0.0-0.4); Lymphocytes Absolute Auto 1.6 X10*3/uL (1.2-4.9); Mean Corpuscular HGB Conc 34.1 g/dl (31.0-35.0); Mean Corpuscular Hemoglobin 28.2 pg (27.0-33.0); Mean Corpuscular Volume 82.5 fL (80.0-98.0); NRBC Abs Auto 0.000 X10*3/uL (0.0-0.012); NRBC Pct Auto 0.0 /100WBC (0.0-0.2); Platelet Count 276 X10*3/uL (160-400); Red Blood Count 5.15 X10*6/uL (4.20-5.50); White Blood Count 6.4 X10*3/uL (4.8-10.8)
[2024-12-18 11:19] LABS: Alanine Aminotransferase 84 U/L (0-31); Albumin Level 4.6 g/dL (3.5-5.0); Alkaline Phosphatase 85 U/L (39-117); Anion Gap 19 (12-20); Aspartate Amino Transferase 58 U/L (5-31); Blood Urea Nitrogen 8 mg/dL (9-16); Calcium 9.8 mg/dL (8.4-10.2); Carbon Dioxide 23 mmol/L (22-29); Chloride 100 mmol/L (96-108); Creatinine Clr Calc Pharmacy 112.8; Estimated Glomerular Filt Rate > 60; Lipase 103 U/L (8-78); Magnesium 1.7 mg/dL (1.6-2.6); Potassium 3.7 mmol/L (3.3-5.1); Sodium 138 mmol/L (135-145); Total Protein 8.2 g/dL (6.5-8.0)
--- OUTSIDE RECORDS SUMMARY | 2024-12-18 11:56 | XMS_ITS | Encounter Summary ---
Author Organization [employer] [facility] Address [address] [facility] 7t [place] [address] Care Team Providers Care Plastic Parts Designer Name Role Phone Karla Lincoln MD Primary Care Provide r Encounter Details Date Type Department Care Team (Late Contact Info) Description 01/08/2024 Orders Only [facility] MEDICINE [address] [place] [phone] Tereza Bowen CNM [address] [place] [address] Social History Tobacco Use Types Packs/Day Years [...] Description 01/02/2025 10:45 AM EDT Office Visit [facility] MEDICINE [address] [place] [phone] Karla Lincoln MD [address] [place] [phone] documented as of this encounter Visit Diagnoses Not on filedocumented in this encounter Care Teams Plastic Parts Designer Relationship Specialty Start Date End Date Karla Lincoln MD [address] [place] [address] [phone] PCP - General Internal Medicine 07/04/24 documented as of this encounter
[2024-12-18] MEDS: iohexoL 350 MG/ML 100 ML INFUS..BTL IV (13:36)
[2024-12-18 14:53] LABS: Appearance Urine Clear; Glucose Urine UA Negative (Negative); PH 6.0 (5.0-9.0); Specific Gravity - Urine >= 1.030 (1.005-1.025)
--- NOTE | 2024-12-18 16:38 | PC.NURSE ---
Pt's BP still soft at 100/40; GENERAL ASSEMBLER aware; pt denies pain or nausea at this time; will PO trial pt per provider and observe
== END 2024-12-18 18:45 | disposition home or self-care (01) ==
PROVIDERS: Emergency Provider Emergency Medicine Emergency Medical Services; PCP Internal Medicine
DX: R11.2 Nausea with vomiting, unspecified (principal); R42 Dizziness and giddiness; Z98.84 Bariatric surgery status; J45.909 Unspecified asthma, uncomplicated; E66.9 Obesity, unspecified; Z68.42 Body mass index [BMI] 45.0-49.9, adult; Z79.899 Other long term (current) drug therapy
CPT/HCPCS: 36415; 71045; 74177; 80053; 81003; 82248; 83690; 83735; 84702; 85025; 96361; 96374; 96375; 99285; J0737; J2405; Q9967

== ENCOUNTER → 2024-12-18 10:43 | Outpatient (BNV) | payer MEDICAID, SELFPAY | PROVIDERS: Emergency Provider Emergency Medicine Emergency Medical Services; PCP Internal Medicine; Visit Provider Radiology Diagnostic Radiology | DX: R11.2 Nausea with vomiting, unspecified (principal); I95.9 Hypotension, unspecified; R11.10 Vomiting, unspecified | CPT/HCPCS: 71045; 74177 ==

== ENCOUNTER 2024-12-26 10:00 | Outpatient (AMB) | payer MEDICAID, SELFPAY ==
--- NOTE | 2024-12-26 10:09 | MHC.OFFVISWM ---
VS Expanded 12/26/24 10:21 BP 130/74 Blood Pressure Location Rt brachial Blood Pressure Position Sitting Pulse 102 H Pulse Source Pulse Oximeter Temp 97.3 F Temperature Source Temporal Artery Scan Pulse Oximetry 98 Oxygen Delivery Method Room Air Height 5 ft 1 in Weight 240 lb BMI 45.3 Body Fat % 51.7 Body Fat Mass 124.2 Fat Free Mass 115.8 Visceral Fat Rating 14.0 Body Water % 34.8 Body Water Mass 83.6 Muscle Mass/Score 109.8 Basal Metabolic Rate/Score 1,734 Intake Visit Reasons: OV PO LSG 11/29/2024 Intake Note: pts pulse bounces from 113 down to 85 back up to 102. pt states she is nauseous and has been vomiting. pt took nausea medication and ended up still vomiting. Software Support Technician Required: Yes Software Support Technician Services: Software Support Technician Present Software Support Technician Name: hospital cmi Allergies No Known Allergies Allergy (Verified 12/26/24 10:24) Medication List - Last Reconciled 12/26/24 by PAPO Alvarado albuterol sulfate 90 mcg/actuation (Ventolin HFA) 2 puffs inhalation Q6H PRN ondansetron 4 mg PO Q8H PRN ondansetron 4 mg PO Q12H pantoprazole 40 mg PO DAILY sucralfate 10 mL PO BID HPI Comments Details: This?a?24?yo female who is s/p LSG without hiatal hernia repair on?11/29/2024. Presents for 1 month post op visit. Weight today is 240 pounds, with a BMI of 45.3. There has been a 51.4 pound weight loss,(initial weight 291.4 pounds) since starting the program on 07/25/2024 reflecting a 17.6% total body weight loss and a weight loss of 32.8 pounds since surgery (operative weight 272.8 pounds) reflecting a 12% TBWL since surgery. Patient reports feeling nauseous with the smell of food. She has reported nausea and vomiting. She presented to the emergency room 2 weeks ago with similar complaints. Labs were unrevealing and CT scan was normal. She was given IV fluids and antiemetics and discharged home. She has been given a meal plan by Dr. Ibarra as listed below. She states that she can tolerate the celebrate rebuild shake but the eggs make her feel nauseous. Additionally she states that shakes have been over 3 hours, she is taking an additional 40 oz of water, waking up at 09:00 and going to bed at midnight. It would appear as though she is drinking too much or too quickly. She additionally states that she would take her sucralfate ?little by little ?and not using the syringe. No complaints of constipation. Last bowel movement yesterday. Present meal plan includes: Celebrate Rebuild with ONE scoop in 8oz almond milk at 10-12 3 tablespoons of Uzbek yogurt or cottage cheese OR 3 forkfuls of scrambled eggs (NOT 1 whole egg) at 1pm Celebrate Rebuild with ONE scoop in 8oz almond milk at 3-5pm 3 tablespoons of Uzbek yogurt or cottage cheese OR 3 forkfuls of scrambled eggs (NOT 1 whole egg) at 6pm Celebrate Rebuild with ONE scoop in 8oz almond milk at 8-10pm [facility] Medical History (Updated 12/19/24 @ 00:00 by Nirmala Corrales) Asthma Morbid obesity Surgical History S/P laparoscopic sleeve gastrectomy (11/29/24) History of esophagogastroduodenoscopy (EGD) Family History Mother Arthritis Father No problems noted. Social History Household Members: Family Housing: House Are you a primary acute care registered nurse to a significant other at home: No Do you presently have visiting nurse or other home services: No Alcohol intake: never Patient Tobacco Use Status: Never used Tobacco Physical Exam Const General: healthy appearing and no acute distress Resp Effort & Inspection: normal respiratory effort Auscultation: clear to auscultation bilaterally Cardio Rate: regular rate Rhythm: regular rhythm GI Auscultation: normal bowel sounds Extrem General: Yes normal to inspection Assessment & Plan Assessment & Plan (1) S/P laparoscopic sleeve gastrectomy: Onset Date: 11/29/24 Comment: Dr. Meraz Code(s): Z98.84 - Bariatric surgery status Category: Surgical Plan: 24-year-old female, 1 month post sleeve gastrectomy, complaining of nausea and vomiting. She states she is able to tolerate 3 shakes per day but has difficulty with the food. Yesterday she had nausea and vomiting after water. It may be that she is taking too much or too quickly. This was reviewed with the patient with instructional devices, syringe and medicine cup. She was encouraged to take 2 mL/minute as she has been encouraged to do so. She was in the emergency room end of November with no significant abnormalities by lab data or CT scan. We will follow up with her tomorrow by phone and in the office in 1 week.
[2024-12-26 10:21] VITALS: BP 130/74; PULSE 102; TEMP 36.3; O2SAT 98; BMI 45.3
--- OUTSIDE RECORDS SUMMARY | 2024-12-26 10:39 | XMS_ITS | Encounter Summary ---
Author Organization [employer] Address [address] [place] [address] Care Team Providers Care Paving Foreman Name Role Phone Karla Lincoln MD Primary Care Provide r Reason for Visit * Reason Comments Pre-visit Planning SDOH screening compl eted on 07/04/2024 Encounter Details Date Type Department Care Team ([facility] st Contact Info) Description 12/24/2024 Patient Outreach [facility] [address] [place] [address] Karla Lincoln MD [address] [place] [address] Pre-visit Planning (SDOH screening completed on 07/04/2024) Social History Tobacco Use Types Packs/Day Years [...] encounter Progress Notes * Amie Campbell - 12/24/2024 10:36 AM EDT CC Amie placed successful outbound call to patient for pre-visit planning. Patient name and confirmed. Patient confirms appt date and time, and has transportation. Biggest concern for appointment at this time is none Patient advised to bring to appointment a photo id and insurance card. Appropriate screenings completed in anticipation of appointment. documented in this encounter Plan of Treatment Upcoming Encounters Date Type Department Care Team (Late st Contact Info) Description 01/02/2025 10:45 AM EDT Office Visit [facility] [address] [place] [address] Karla Lincoln MD [address] [place] [address] documented as of this encounter Visit Diagnoses Not on filedocumented in this encounter Additional Health Concerns Assessment Noted Time PHQ-9 Depression Total Score: 6 07/04/19 25 10:15 AM EST documented as of this encounter Care Teams Paving Foreman Relationship Specialty Start Date End Date Karla Lincoln MD [address] [place] [address] PCP - General Internal Medicine 07/04/24 documented as of this encounter
== END 2024-12-26 10:43 | disposition home or self-care (01) ==
LOC: HO.HBS 10:01
PROVIDERS: PCP Internal Medicine; Visit Provider Physician Assistant Surgical
DX: Z98.84 Bariatric surgery status (principal)
CPT/HCPCS: 99024

== ENCOUNTER → 2024-12-26 10:00 | Outpatient (BNVA) | payer MEDICAID, SELFPAY | PROVIDERS: PCP Internal Medicine; Visit Provider Physician Assistant Surgical | DX: Z48.815 Encounter for surgical aftercare following surgery on the digestive system (principal); Z98.84 Bariatric surgery status | CPT/HCPCS: 99212 ==

== ENCOUNTER 2025-01-02 10:38 | Outpatient (AMB) | payer OTHER, SELFPAY ==
--- NOTE | 2025-01-02 10:55 | MHC.WMTHER ---
Intake Intake Visit Reasons: VIDEO PO LSG 11/29/2024 Allergies No Known Allergies Allergy (Verified 01/07/25 09:41) [facility] Medical History (Updated 12/19/24 @ 00:00 by Nirmala Corrales) Asthma Morbid obesity Surgical History S/P laparoscopic sleeve gastrectomy (11/29/24) History of esophagogastroduodenoscopy (EGD) Family History Mother Arthritis Father No problems noted. Social History Household Members: Family Housing: House Are you a primary school child care attendant to a significant other at home: No Do you presently have visiting nurse or other home services: No Alcohol intake: never Patient Tobacco Use Status: Never used Tobacco Behavioral Health Assessment Weight Management Therapy Therapy Notes Details Subjective: Pt reports she has been sick, has been at the ER 2 times (1 at [facility] and the other at [facility]). Missed krysten w/ MB on 01/02. PT appears to be drinking/eating too fast per what she has reported. During the session her [id number] intervene to support patient expressing her needs, also PT reported feeling down, with low motivation and not sleping well. Her family is pushing her to drink soups and hydrate. Objective: PT presents for a post-op BH krysten. Discussed functioning, challenges and needs. Reinforced importance of following post-op instructions. normalized feelings and explored coping skills. Supported client with assertiveness skills to better communicate with family and set boundaries abround recovery to prevent complications. Assessment/Response: Mental status: down, mild functioning issues due to physical SX. Risk reported/identified: none. Assessment & Plan Assessment & Plan (1) Adjustment disorder: Code(s): F43.20 - Adjustment disorder, unspecified (2) S/P laparoscopic sleeve gastrectomy: Onset Date: 11/29/24 Comment: Dr. Meraz Code(s): Z98.84 - Bariatric surgery status Plan -We will start having regular session on a bi-weekly basis as she is struggling with the post-op life. -This provider will update program-RN to f/up with client and offer further guidance. -PT advised to not eat or drink anything out of the plan without consulting with surgeon to prevent complications. Telehealth Telehealth Telehealth Platform: [employer] Location of provider rendering services: other (Home office. [place], [place]) Location of patient: address on file Patient Identification confirmed using: Name, : Yes Telehealth method: video Patient verbally consented to treatment: Yes Patient verbally consented to billing insurance company: Yes Patient informed of any privacy concerns related to visit: Yes Minutes spent on Phone/Video with Pt.: 45 Coding Level of Care Code Established Pt Tele Psytx 45 mins (22240) Patient Type Established Diagnoses Adjustment disorder F43.20 S/P laparoscopic sleeve gastrectomy Z98.84 Time Spent (min) 45
--- OUTSIDE RECORDS SUMMARY | 2025-01-02 10:55 | XMS_ITS | Encounter Summary ---
Author Organization [employer] Address [address] [place] [address] Care Team Providers Care Clay Products Machine Operator Name Role Phone Karla Lincoln MD Primary Care Provide r Encounter Details Date Type Department Care Team (Late st Contact Info) Description 01/08/2024 Orders Only [facility] [address] [place] [address] Tereza Bowen CN [address] [place] [address] Social History Tobacco Use Types Packs/Day Years [...] on filedocumented in this encounter Care Teams Clay Products Machine Operator Relationship Specialty Start Date End Date Karla Lincoln MD [address] [place] [address] PCP - General Internal Medicine 07/04/24 documented as of this encounter
== END 2025-01-02 11:19 | disposition home or self-care (01) ==
PROVIDERS: PCP Internal Medicine; Visit Provider Counselor Mental Health
DX: F43.20 Adjustment disorder, unspecified (principal); Z98.84 Bariatric surgery status
CPT/HCPCS: 90834

== ENCOUNTER 2025-01-07 09:26 | Outpatient (AMB) | payer MEDICAID, SELFPAY ==
--- NOTE | 2025-01-07 09:30 | A.OFFVIS_ITS ---
VS Expanded 01/07/25 09:38 BP 136/90 H Blood Pressure Location Rt brachial Blood Pressure Position Sitting Pulse 114 H Pulse Source Pulse Oximeter Temp 97.5 F Temperature Source Temporal Artery Scan Pulse Oximetry 97 Oxygen Delivery Method Room Air Height 5 ft 1 in Weight 241 lb 12.8 oz BMI 45.7 Body Fat % 49.9 Body Fat Mass 120.6 Fat Free Mass 121.0 Visceral Fat Rating 3.0 Body Water % 36.1 Body Water Mass 87.4 Muscle Mass/Score 114.8 Basal Metabolic Rate/Score 1,794 Intake Visit Reasons: OV PO LSG 11/29/2024 Manager Account Management Required: Yes Manager Account Management Services: Manager Account Management Present Manager Account Management Name: hospital cmi Allergies No Known Allergies Allergy (Verified 01/07/25 09:41) Medication List - Last Reconciled 01/07/25 by PAPO Alvarado albuterol sulfate 90 mcg/actuation (Ventolin HFA) 2 puffs inhalation Q6H PRN ondansetron 4 mg PO Q8H PRN pantoprazole 40 mg PO DAILY sucralfate 10 mL PO BID HPI Comments Details: This?a?24?yo female who is s/p LSG without hiatal hernia repair on?11/29/2024. Presents for 1 month post op visit. Weight today is 241.8 pounds, with a BMI of 45.7. There has been a 51.4 pound weight loss,(initial weight 291.4 pounds) since starting the program on 07/25/2024 reflecting a 17.6% total body weight loss and a weight loss of 32.8 pounds since surgery (operative weight 272.8 pounds) reflecting a 12% TBWL since surgery. Patient reports feeling significantly better. She has no further complaints of abdominal pain, nausea, vomiting. Present meal plan includes: Celebrate Rebuild with ONE scoop in 8oz almond milk at 10-12 3 tablespoons of Bhutanese yogurt OR 3 forkfuls of scrambled eggs (NOT 1 whole egg) at 1pm Celebrate Rebuild with ONE scoop in 8oz almond milk at 3-5pm 3 tablespoons of Bhutanese yogurt or cottage cheese OR 3 forkfuls of scrambled eggs (NOT 1 whole egg) at 6pm Celebrate Rebuild with ONE scoop in 8oz almond milk at 8-10pm Drinking 20-24 oz water Exercise plan: walking outside 20-30 min membership [facility] Medical History (Updated 12/19/24 @ 00:00 by Nirmala Corrales) Asthma Morbid obesity Surgical History S/P laparoscopic sleeve gastrectomy (11/29/24) History of esophagogastroduodenoscopy (EGD) Family History Mother Arthritis Father No problems noted. Social History Household Members: Family Housing: House Are you a primary coronary care unit nurse to a significant other at home: No Do you presently have visiting nurse or other home services: No Alcohol intake: never Patient Tobacco Use Status: Never used Tobacco Physical Exam Const General: healthy appearing and no acute distress Resp Effort & Inspection: normal respiratory effort Auscultation: clear to auscultation bilaterally Cardio Rate: regular rate Rhythm: regular rhythm GI Auscultation: normal bowel sounds Extrem General: Yes normal to inspection Assessment & Plan Assessment & Plan (1) S/P laparoscopic sleeve gastrectomy: Onset Date: 11/29/24 Comment: Dr. Meraz Code(s): Z98.84 - Bariatric surgery status Category: Surgical Plan: Overall, patient has significantly improved. No further abdominal pain, nausea, vomiting. She is not exercising very much and we discussed strategies to improve this including returning to the gym at [employer] utilizing the treadmill, stationary bike, elliptical machine tracking calories for a goal of burning 300 daily. She was able to recount her meal plan exactly and is continuing to communicate with Dr. Ibarra. Staff from the office or communicating with her as well wants to twice weekly to make sure that she is on track. I expect that she will now lose weight more appropriately. Plan to return to the office in 1 month
[2025-01-07 09:38] VITALS: BP 136/90; PULSE 114; TEMP 36.4; O2SAT 97; BMI 45.7
== END 2025-01-07 09:54 | disposition home or self-care (01) ==
LOC: HO.HBS 09:26
PROVIDERS: PCP Internal Medicine; Visit Provider Physician Assistant Surgical
DX: Z98.84 Bariatric surgery status (principal)
CPT/HCPCS: 99024

== ENCOUNTER → 2025-01-07 09:26 | Outpatient (BNVA) | payer MEDICAID, SELFPAY | PROVIDERS: PCP Internal Medicine; Visit Provider Physician Assistant Surgical | DX: Z98.84 Bariatric surgery status (principal) | CPT/HCPCS: 99212 ==

== ENCOUNTER 2025-01-21 11:15 | Outpatient (AMB) | payer OTHER, SELFPAY ==
--- NOTE | 2025-01-21 11:10 | A.OFFWM_ITS ---
Intake Intake Visit Reasons: VIDEO PO LSG 11/29/2024 Allergies No Known Allergies Allergy (Verified 01/07/25 09:41) [facility] Medical History (Updated 12/19/24 @ 00:00 by Nirmala Corrales) Asthma Morbid obesity Surgical History S/P laparoscopic sleeve gastrectomy (11/29/24) History of esophagogastroduodenoscopy (EGD) Family History Mother Arthritis Father No problems noted. Social History Household Members: Family Housing: House Are you a primary child care worker to a significant other at home: No Do you presently have visiting nurse or other home services: No Alcohol intake: never Patient Tobacco Use Status: Never used Tobacco Behavioral Health Assessment Weight Management Therapy Therapy Notes Details Subjective: The patient reports feeling much better today, both physically and emotionally. She shared that she began exercising two weeks ago and is currently using the treadmill and stationary bike as part of her routine. She also started following a new structured meal plan consisting of three protein shakes and one solid meal per day, which includes 3 ounces of grilled chicken and 3 ounces of broccoli. She reports her most recent weight as 244 lbs. Objective: The patient presented for a scheduled post-operative behavioral health follow-up visit. During the session, we discussed her recent improvements and progress. Focus was placed on setting [id number] goals, reinforcing the importance of consistency and maintaining a positive mindset. The patient was encouraged to develop discipline and follow through with her health behaviors even on days when motivation is low. She was engaged in the conversation and demonstrated insight into the behavioral strategies discussed. Assessment/Response: * Mental status: WNL * Risk reported/identified: None. The patient appears to be making positive behavioral changes and remains engaged in her post-operative care. Food/Weight/Diet Expectations of change The patient began the program on 07/25/2024 at a starting weight of 291 lbs. The initial goal was to lose 10% of her body weight (~31 lbs) prior to surgery, with a target weight of 260 lbs. As of 10/21/2024, the patient weighed 285 lbs, and as of 11/05/2024, her weight was 276 lbs, reflecting steady progress. Weight on surgery day 11/29/2024: 267Lbs PO weight 12/04/24: 257Lbs PO weight 01/20/25: 244Lbs. Target PO weight: 150 Lbs. PT is implementing the following: Current meal plan: 3 shakes, 1 meal (3 FT chicken and 3 FT broccoli) Exercise plan: Treadmill/stationary bike. 5 days at week, 30min each machine. Scale: yes Communication with provider: Weekly on Tuesdays. Assessment & Plan Assessment & Plan (1) Adjustment disorder: Code(s): F43.20 - Adjustment disorder, unspecified (2) S/P laparoscopic sleeve gastrectomy: Onset Date: 11/29/24 Comment: Dr. Meraz Code(s): Z98.84 - Bariatric surgery status Plan The patient was invited to join the program?s Facebook support group to enhance accountability and receive peer support; the link will be sent to her following the session. She will continue working on consistency and mindset-related strategies. A follow-up visit is scheduled in one month for ongoing post- operative behavioral health support. * Next appointment: February 18, 2025, at 11:00 AM. Video Telehealth Telehealth [facility]health [facility] Location of provider rendering services: other (Home office. [place], [place]) Location of patient: address on file Patient Identification confirmed using: Name, : Yes Telehealth method: video Patient verbally consented to treatment: Yes Patient verbally consented to billing insurance company: Yes Patient informed of any privacy concerns related to visit: Yes Minutes spent on Phone/Video with Pt.: 45 Coding Level of Care Code Established Pt Tele Psytx 45 mins ([id number]) Patient Type Established Diagnoses Adjustment disorder F43.20 S/P laparoscopic sleeve gastrectomy Z98.84 Time Spent (min) 45
== END 2025-01-21 12:55 | disposition home or self-care (01) ==
LOC: HO.HBST 11:15
PROVIDERS: PCP Internal Medicine; Visit Provider Counselor Mental Health
DX: F43.20 Adjustment disorder, unspecified (principal); Z98.84 Bariatric surgery status
CPT/HCPCS: 90834

== ENCOUNTER 2025-02-18 11:17 | Outpatient (AMB) | payer OTHER, SELFPAY ==
--- NOTE | 2025-02-18 11:05 | A.OFFWM_ITS ---
Intake Intake Visit Reasons: VIDEO PO LSG 11/29/2024 Allergies No Known Allergies Allergy (Verified 01/07/25 09:41) [facility] Medical History (Updated 12/19/24 @ 00:00 by Nirmala Corrales) Asthma Morbid obesity Surgical History S/P laparoscopic sleeve gastrectomy (11/29/24) History of esophagogastroduodenoscopy (EGD) Family History Mother Arthritis Father No problems noted. Social History Household Members: Family Housing: House Are you a primary healthcare educator to a significant other at home: No Do you presently have visiting nurse or other home services: No Alcohol intake: never Patient Tobacco Use Status: Never used Tobacco Behavioral Health Assessment Weight Management Therapy Therapy Notes Details Subjective: The patient reports she has been adhering well to her current meal plan, which consists of three shakes, two bars, and one meal per day. She is also working toward her exercise goal of five days per week, aiming for a total of 1800?2000 calories burned weekly; last week, she achieved 1400 calories. Her most recent weight is 237 lbs. She notes improved sleep quality. However, weekends remain challenging due to her family frequently ordering takeout. Objective: The patient presents for a post-operative behavioral health follow-up visit. Functioning and current challenges were discussed. She was supported with techniques to manage food-related thoughts and cravings on weekends. Goals were explored, with a focus on strategies to maintain consistency and discipline. A behavioral activation plan was provided. Community resources related to career interests and ESL classes were also shared. Assessment/Response: * Mental status: Within normal limits * Risk reported/identified: None Food/Weight/Diet Expectations of change The patient began the program on 07/25/2024 at a starting weight of 291 lbs. The initial goal was to lose 10% of her body weight (~31 lbs) prior to surgery, with a target weight of 260 lbs. As of 10/21/2024, the patient weighed 285 lbs, and as of 11/05/2024, her weight was 276 lbs, reflecting steady progress. Weight on surgery day 11/29/2024: 267Lbs PO weight 12/04/24: 257Lbs PO weight 01/20/25: 244Lbs. PO weight 02/17/25: 237Lbs Target PO weight: 150 Lbs. PT is implementing the following: Current meal plan: 3 shakes, 2 bars and 1 meal at day (3 FT chicken and 3 FT broccoli) Exercise plan: Treadmill/stationary bike. 5 days a week. Scale: yes Communication with provider: Weekly on Mondays. Assessment & Plan Assessment & Plan (1) Adjustment disorder: Code(s): F43.20 - Adjustment disorder, unspecified (2) S/P laparoscopic sleeve gastrectomy: Onset Date: 11/29/24 Comment: Dr. Meraz Code(s): Z98.84 - Bariatric surgery status Plan Follow up in 6 weeks. * Next appointment scheduled for 03/31/25 at 11:00 am via video. Telehealth [facility]health [facility] Location of provider rendering services: other (Home office. [place], [place]) Location of patient: address on file Patient Identification confirmed using: Name, : Yes Telehealth method: video Patient verbally consented to treatment: Yes Patient verbally consented to billing insurance company: Yes Patient informed of any privacy concerns related to visit: Yes Minutes spent on Phone/Video with Pt.: 60 Coding Level of Care Code Established Pt Tele Psytx >53 mins ([id number]) Patient Type Established Diagnoses Adjustment disorder F43.20 S/P laparoscopic sleeve gastrectomy Z98.84 Time Spent (min) 60
== END 2025-02-18 12:16 | disposition home or self-care (01) ==
LOC: HO.HBST 11:17
PROVIDERS: PCP Internal Medicine; Visit Provider Counselor Mental Health
DX: F43.20 Adjustment disorder, unspecified (principal); Z98.84 Bariatric surgery status
CPT/HCPCS: 90837

== ENCOUNTER 2025-03-26 10:46 | Outpatient (REF) | payer MEDICAID, SELFPAY ==
[2025-03-26 14:12] LABS: HBS Num1 0.09 mIU/mL (0-7.99); HBc Num1 0.44 S/CO (0.00-0.79); HBsAGNum1 0.40 S/CO (0.00-0.99); HIV Num 1 0.05 S/CO (0.00-0.99); Hepatitis A Antibody IgM 0.24 Index (0-0.79); Hepatitis B Surface Antigen Negative (Negative); ~HepC Num1 0.11 S/CO (0.00-0.79); ~Hepatitis A Antibody IgM Nonreactive (Nonreactive); ~Hepatitis B Surface Antibody NONREACTIVE (Nonreactive); ~Hepatitis C Antibody Nonreactive (Nonreactive)
[2025-03-26 15:11] LABS: CT PCR Urine NOT DETECTED (Not Detect.); NG PCR Urine NOT DETECTED (Not Detect.)
== END 2025-03-26 10:47 | disposition home or self-care (01) ==
LOC: HO.HHCL 10:46
PROVIDERS: PCP Internal Medicine; Visit Provider Internal Medicine
DX: Z11.3 Encounter for screening for infections with a predominantly sexual mode of transmission (principal); Z11.4 Encounter for screening for human immunodeficiency virus [HIV]; Z11.59 Encounter for screening for other viral diseases; N92.6 Irregular menstruation, unspecified; Z20.2 Contact with and (suspected) exposure to infections with a predominantly sexual mode of transmission
CPT/HCPCS: 84702; 86592; 86704; 86706; 86709; 86803; 87340; 87389; 87491; 87591

== ENCOUNTER 2025-04-01 11:25 | Outpatient (AMB) | payer OTHER, SELFPAY ==
--- NOTE | 2025-04-01 11:15 | A.OFFWM_ITS ---
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 Social History Household Members: Family Housing: House Are you a primary janitor caretaker to a significant other at home: No Do you presently have visiting nurse or other home services: No Alcohol intake: never Patient Tobacco Use Status: Never used Tobacco Behavioral Health Assessment Weight Management Therapy Therapy Notes Details Subjective: Patient reports feeling well . She recently went on vacation and was able to adhere to her post-operative plan almost 100%. Her most recent weight is 225 lbs. She shares that her partner has been going to the gym with her and follow ing a similar meal plan, which has helped her feel supported and motivated. Patient expresses satisfaction with her progress and increased confidence in maintaining her new lifestyle. Objective: The patient presented for a follow-up post-operative behavioral health visit. She appeared alert, oriented, and in good spirits, with a positive mood and congruent affect. During the session, we discussed her adjustment to life after surgery, including physical, emotional, and social changes. Interventions included providing psychoeducation on common post-surgical experiences such as changes in appetite, body image, and energy levels. Cognitive behavioral therapy (CBT) techniques were utilized to reinforce cognitive restructuring for managing unrealistic expectations and self-criticism, and to support behavioral activation by encouraging continued engagement in physical activity and social support. We also worked on problem-solving strategies for navigating challenges like eating out, traveling, and maintaining routines, and encouraged self- monitoring of mood, food intake, and physical activity using tracking tools. The session included exploring relapse prevention strategies, celebrating non-scale victories, and discussing the importance of ongoing support from her partner and other support systems. Assessment/Response: * Mental status: Patient is alert and oriented x3, mood euthymic, affect appropriate, thought process logical and goal-directed, with no evidence of psychosis or cognitive impairment. * Risk reported/ identified: none Food/Weight/Diet Expectations of change The patient began the program on 07/25/2024 at a starting weight of 291 lbs. The initial goal was to lose 10% of her body weight (~31 lbs) prior to surgery, with a target weight of 260 lbs. As of 10/21/2024, the patient weighed 285 lbs, and as of 11/05/2024, her weight was 276 lbs, re flecting steady progress. Weight on surgery day 11/29/2024: 267Lbs PO weight 12/04/24: 257Lbs PO weight 01/20/25: 244Lbs. PO weight 02/17/25: 237Lbs PO weight 04/01/2025: 225Lbs. Target PO weight: 150 Lbs. PT is implementing the following: Current meal plan: 3 shakes, 2 bars and 1 meal at day (3 FT chicken and 3 FT broccoli) Exercise plan: Treadmill/stationary bike. 5 days a week. Scale: yes Communication with provider: Weekly on Mondays. Assessment & Plan Assessment & Plan (1) Adjustment disorder: Code(s): F43.20 - Adjustment disorder, unspecified (2) S/P laparoscopic sleeve gastrectomy: Onset Date: 11/29/24 Comment: Dr. Meraz Code(s): Z98.84 - Bariatric surgery status Plan The plan is to follow up in six weeks, with the next appointment scheduled for 05/06/2025 at 11:00 AM via video visit. She is encouraged to continue self- monitoring and to utilize her support systems. Telehealth Telehealth Telehealth Platform: [email or web address] Location of provider rendering services: other (Home office. [place], [place]) Location of patient: address on file Patient Identification confirmed using: Name, : Yes Telehealth method: video Patient verbally consented to treatment: Yes Patient verbally consented to billing insurance company: Yes Patient informed of any privacy concerns related to visit: Yes Minutes spent on Phone/Video with Pt.: 50 Coding Level of Care Code Established Pt Tele Psytx 45 mins ([id number]) Patient Type Established Diagnoses Adjustment disorder F43.20 S/P laparoscopic sleeve gastrectomy Z98.84 Time Spent (min) 50
--- OUTSIDE RECORDS SUMMARY | 2025-04-01 13:55 | XMS_ITS | Encounter Summary ---
Author Organization [employer] Address [address] [facility] [address] [place] [address] Care Team Providers Care Associate Director Data & Analytics Name Role Phone Karla Lincoln MD Primary Care Provide r Encounter Details Date Type Department Care Team (Late st Contact Info) Description 01/08/2024 Orders Only [facility] [address] [place] [address] Tereza Bowen CN [address] [place] [address] Social History Tobacco Use Types Packs/Day Years [...] on filedocumented in this encounter Care Teams Associate Director Data & Analytics Relationship Specialty Start Date End Date Karla Lincoln MD [address] [place] [address] PCP - General Internal Medicine 07/04/24 documented as of this encounter
--- OUTSIDE RECORDS SUMMARY | 2025-04-01 13:55 | XMS_ITS | Encounter Summary ---
Author Organization [employer] Address [address] [place] [address] Care Team Providers Care Grinding And Polishing Laborer Name Role Phone Karla Lincoln MD Primary Care Provide r Reason for Visit * Reason Onset Date Comments Med Refill 10/02/2024 Encounter Details Date Type Department Care Team ([facility] st Contact Info) Description 10/02/2024 Refill [facility] [address] [place] [address] Tereza Bowen, [facility] [address] [place] [address] Social History Tobacco Use Types Packs/Day Years [...] documented as of this encounter Care Teams Grinding And Polishing Laborer Relationship Specialty Start Date End Date Karla Lincoln MD [address] [place] [phone] PCP - General Internal Medicine 07/04/24 documented as of this encounter
--- OUTSIDE RECORDS SUMMARY | 2025-04-01 13:56 | XMS_ITS | Clinical Summary ---
Author Organization [employer] Address [address] [facility] 7t [place] [address] Care Team Providers Care Glove Tagger Name Role Phone Karla Lincoln MD Primary Care Provide r Allergies No known active allergies Medications Vit-Fe Fumarate-FA ( Plus) 27-1 MG tablet One tablet by mouth daily 30 tablet 11 4 Active medroxyPROGESTERone (Provera) 5 MG tablet Take 1 tablet (5 mg) by mouth Once per day for 7 days. Report if no menses by 7th day after last pill 7 tablet 4 Active albuterol 108 (90 Base) MCG/ACT inhalerIndications: Mild intermittent asthma, unspecified whether complicated Inhale 2 puffs every 6 (six) hours if needed for wheezing. 18 g 1 5 07/04/19 26 Active ondansetron ODT (Zofran-ODT) 4 MG disintegrating tablet Take 1 tablet by mouth every 12 (twelve) hours if needed for vomiting or nausea. 5 Active pantoprazole (ProtoNix) 40 MG EC tablet Take 1 tablet by mouth Once per day. 5 Active sucralfate (Carafate) 1 GM/10ML suspension Take 10 mL by mouth 2 times daily. 5 Active Active Problems Problem Noted Date Diagnosed Date Class 3 severe obesity due t o excess calories without serious comorbidity with body mass index (BMI) of 40.0 to 44.9 in adult 03/26/2025 Assessment & Plan (03/26/2025 1:40 PM EDT): Extensive counseling about following the diet and exercise done today Metabolic dysfunction-associ ated steatotic liver disease (MASLD) 03/26/2025 Assessment & Plan (03/26/2025 1:41 PM EDT): LFTS where better las time they where check, last US done 5 months ago, Again counseling about diet done Screening examination for STI 03/26/2025 Missed period 03/26/2025 S/P gastric sleeve procedure 12/12/2024 Assessment & Plan (12/12/2024 3:32 PM EDT): Continue to follow-up closely with bariatric team, follow instructions Nausea 12/12/2024 Assessment & Plan (12/12/2024 3:32 PM EDT): Zofran will be prescribed for patient Mild intermittent asthma 07/04/2024 Assessment & Plan (03/26/2025 1:42 PM EDT): Stable c/w albuterol inhaler PRN, counseling about avoiding triggers done Assessment & Plan (07/04/2024 1:01 PM EST): [...] Encounters Date Type Department Care Team Description 03/26/2025 10:00 AM EDT Office Visit [facility] [address] [place] [phone] Karla Lincoln MD Mild intermittent asthma, unspecified whether complicated; Class 3 severe obesity due to excess calories with serious comorbidity and body mass index (BMI) of 40.0 to 44.9 in adult (HCC); Metabolic dysfunction-associate d steatotic liver disease (MASLD); Screening examination for STI; Missed period; Encounter for immunization 03/26/2025 Travel 03/25/2025 Telephone [facility] [address] [place] [address] Karla Lincoln MD CHART PREP 03/25/2025 Travel 03/18/2025 Patient Outreach [address] [address] Karla Lincoln MD Pre-visit Planning (SDOH screening completed on 07/04/2024) 01/09/2025 Telephone [facility] [address] [place] [phone] Karla Lincoln MD OCT RECALL 01/02/[address] [address] Karla Lincoln MD No Show from Last 3 Months Immunizations Immunization Administration Dates Next Due Influenza, seasonal, injectable, preservative fr ee 03/26/2025,07/04/2024 Family History Medical History Relation Name Comments [...] Sign Reading Time Taken Comments Blood Pressure 106/72 03/26/2025 10:07 AM EDT Pulse 85 03/26/2025 10:07 AM EDT Temperature 33.3 C (92 F) 03/26/2025 10:07 AM EDT Respiratory Rate 18 03/26/2025 10:07 AM EDT Oxygen Saturation 98% 03/26/2025 10:07 AM EDT Inhaled Oxygen Concentration - - Weight 105 kg (230 lb 6.4 oz) 03/26/2025 10:07 A M EDT Height 154.9 cm (5' 1 ) 03/26/2025 10:07 AM EDT Body Mass Index 43.53 03/26/2025 10:07 AM EDT Plan of Treatment Health Maintenance Due Date Last Done Comments HPV Vaccines (1 - 3-dose series) 2016 Meningococcal B Vaccine (1 o f 2 - Standard) 2017 DTaP/Tdap/Td Vaccines (1 - Tdap) 2020 Hepatitis A Vaccines (1 of 2 - Risk 2-dose series) 2020 Hepatitis B Vaccines (1 of 3 - 19+ 3-dose series) 2020 Pneumococcal Vaccine: Pediatrics (0 to 5 Years) and At-Risk Patients (6 to 49) Years (1 of 2 - PCV) 2020 Chlamydia and Gonorrhea Screening 12/14/2024 12/15/2023 COVID-19 Vaccine (1 - 2023-2 5 season) 2025 Family Planning (PISQ) 05/21/2025 05/21/2024 Alcohol/Substance Use Screening 07/04/2025 07/04/2024 Depression Screening 07/04/2025 07/04/2024, 07/04/2024 SDOH Screening 07/04/2025 07/04/2024 Disability Screening 03/26/2026 03/26/2025 Tobacco Screening 03/26/2026 03/26/2025 Pap Smear 12/13/2026 12/14/2023 Lipid Panel 11/23/2029 11/23/2024, 10/02/2024, 04/22/2024 Zoster Vaccines (1 of 2) 2051 RSV Patients and Patients Aged 60 years or older (1 - 1-dose 75+ series) 2076 HIV Screening Completed 03/26/2025, 07/04/2024 Hepatitis C Screening Completed 03/26/2025 , 07/11/2024, 07/04/2024 Influenza Vaccine Completed 03/26/2025, 07/04/2024 HIB Vaccines Aged Out No longer [...] Associated Diagnosis Comments HEPATITIS PANEL, GENERAL Routine 03/26/2025 11:50 AM EDT Screening examination for STI RPR (MONITOR) W/REFL TITER Routine 03/26/2025 11:50 AM EDT Screening examination for STI HIV 1/2 ANTIGEN/ANTIBODY, FOURTH GENERATION W/RFL Routine 03/26/2025 11:50 AM EDT Screening examination for STI CHLAMYDIA/TRICHOMONA S/NEISSERIA GONORRHOEAE, PCR, URINE Routine 03/26/2025 11:50 AM EDT Screening examination for STI HCG, TOTAL, QN Routine 03/26/2025 11:50 AM EDT Missed period LIPID PANEL, STANDARD Routine 11/23/2024 9:03 AM EDT CHLAMYDIA/N. GONORRHOEAE AND T. VAGINALIS RNA, QUAL,TMA Routine 12/15/2023 11:00 AM EDT Routine cervical smear Encntr screen for infections w sexl mode of transmiss THINPREP IMAGING SYSTEM PAP Routine 12/14/2023 11:00 AM EDT from Last 3 Months or Most Recently Relevant to Health Maintenance Results * Chlamydia/N. Gonorrhoeae, PCR, Urine (03/26/2025 11:50 AM EDT) CT PCR, Urine NOT DETECTED Not Detect. [facility] Comment:A not detected test result does not exclude the possibilityof infection because test results can be affected byimproper specimen collection, concurrent antibiotic therapy,or the number of organisms in the specimen which may bebelow the sensitivity of the test. As with many diagnostictests, results from the Xpert CT/NG assay should beinterpreted in conjunction with other laboratory andclinical data available to the clinician.The Xpert CT/NG assay should not be used for the evaluationof suspected sexual abuse or for other medico-legalindications. Additional testing is recommended in anycircumstance when false positive or false negative resultscould lead to adverse medical, social or psychologicalconsequences. NG PCR, Urine NOT DETECTED Not Detect. [facility] Comment:A not detected test result does not exclude the possibilityof infection because test results can be affected byimproper specimen collection, concurrent antibiotic therapy,or the number of organisms in the specimen which may bebelow the sensitivity of the test. As with many diagnostictests, results from the Xpert CT/NG assay should beinterpreted in conjunction with other laboratory andclinical data available to the clinician.The Xpert CT/NG assay should not be used for the evaluationof suspected sexual abuse or for other medico-legalindications. Additional testing is recommended in anycircumstance when false positive or false negative resultscould lead to adverse medical, social or psychologicalconsequences. Urine (Urine, Random) 03/26/2025 11:50 AM EDT 03/26/2025 1:15 PM EDT Karla Mckinney MD LAB URINE ORDERABLES Final Result Performing Organization Address [facility] Co de Phone Number [facility] [address] [place] [phone] * Hepatitis A,B,C Profile (03/26/2025 11:50 AM EDT) Hepatitis A IgM Nonreactive Nonreactive [facility] Comment:IgM antibodies to [place] V not detected; does not exclude earlyacute or recovered HAV infection. ~Hepatitis B Surface Antibody NONREACTIVE Nonreactive [facility] Comment:Nonreactive: < 8.00 mIU/mL Hepatitis B Core Antibody Nonreactive Nonreactive [facility] Hepatitis C Antibody Nonreactive Nonreactive [facility] Comment:Antibodies to HCV no t detected; does not exclude early acuteHCV infection. Hepatitis B Surface Ag Negative Negative [facility] Blood Venous blood specimen / Unknown 03/26/2025 11:50 AM EDT 03/26/2025 1:17 PM EDT Karla Mckinney MD LAB BLOOD ORDERABLES Final Result Performing Organization Address [facility] Co de Phone Number [facility] [address] [place] [address] [phone] * RPR (Monitor) with Reflex to??Titer (03/26/2025 11:50 AM EDT) RPR (Monitor) w/Refl Titer NON-REACTI VE NON-REACT WILLOW [facility] Comment:THIS TEST WAS PERFOR MED AT:[facility] [address] [id number] SOUTH MD Rapid Plasma Reagin Ab Titer TNP [facility] Blood Venous blood specimen / Unknown 03/26/2025 11:50 AM EDT 03/26/2025 1:45 PM EDT us Karla Mckinney MD LAB BLOOD ORDERABLES Final Result Performing Organization Address City/[facility]/ZIP Co de Phone Number [facility] [address] [place] [phone] * HIV-1/2 Antigen and Antibodies, Fourth Generation, with Reflexes (03/26/2025 11:50 AM EDT) [facility] HIV AB/AG Nonreactive Nonreactive [facility] Comment:HIV-1 p24 Ag and/or HIV-1/HIV-2 Ab not detected.A test result that is nonreactive does not exclude thepossibility of exposure to or infection with HIV-1 and/orHIV-2. Nonreactive results in this assay for individualswith prior exposure to HIV-1 and/or HIV-2 may be due toantigen and antibody levels that are below the limit ofdetection of this assay.The [employer] HIV Ag/Ab Combo assay result andsupplemental assay results should be interpreted inconjunction with the patient's clinical presentation,history and other laboratory results. If the results areinconsistent with clinical evidence, additional testing issuggested to confirm the result. Blood Venous blood specimen / Unknown 03/26/2025 11:50 AM EDT 03/26/2025 1:17 PM EDT us Karla Mckinney MD LAB BLOOD ORDERABLES Final Result Performing Organization Address City/[facility]/ZIP Co de Phone Number [facility] [address] [place] [phone] * hCG, Total, Quantitative (03/26/2025 11:50 AM EDT) [facility] HCG Quantitative <2 mIU/mL [facility] Comment:Weeks post LMP Appro ximate hCG(Last Menstrual Period) Range (mIU/ml)3 - 4 weeks 9 - 1304 - 5 weeks 75 - 2,6005 - 6 weeks 850 - 20,8006 - 7 weeks 4000 - 100,2007 - 12 weeks 11,500 - 289,69733 - 16 weeks 18,300 - 137,78628 - 29 weeks (2nd trimester) 1,400 - 53,26107 - 41 weeks (3rd trimester) 940 - 60,000The Hawley B- hCG assay is used for the early detection ofpregnancy; it cannot be used to diagnose any conditionunrelated to . If a B-hCG level is not supportedby the clinical evidence, results should be confirmed by analternative method (qualitative urine hCG, for example). Blood Venous blood specimen / Unknown 03/26/2025 11:50 AM EDT 03/26/2025 1:17 PM EDT Karla Mckinney MD LAB BLOOD ORDERABLES Final Result [facility] [address] [place] [address] [phone] * (ABNORMAL) Lipid Panel, Standard (11/23/2024 9:03 AM EDT) Triglycerides 159(H) <150 mg/dL [facility] Comment:Desirable Triglyceri de: less than 150 mg/dLBorderline High Triglyceride 150-199 mg/dLHigh Triglyceride: 200-499 mg/dLVery High Triglyceride: greater than or equal to 5OO mg/dL Cholesterol 142 <200 mg/dL [facility] Comment:Desirable Cholestero l: less than 200 mg/dLBorderline High Cholesterol: 200-239 mg/dLHigh Cholesterol: greater than 239 mg/dL LDL Cholesterol Calculated 83 <100 mg/dL [facility] Comment:Desirable LDL: less than 100 mg/dLNear Optimal/Above Optimal LDL: 110- 129 mg/dLBorderline High LDL: 130-159 mg/dLHigh LDL: 160-189 mg/dLVery High LDL: greater than or equal to 190 mg/dL HDL Cholesterol 28(L) >40 mg/dL [facility] Comment:Desirable HDL: great er than 40 mg/dL Note: This HDL assay may give artificially low results in patients with liver disease. 11/23/2024 9:03 AM EDT 11/23/2024 9:03 AM EDT Generic External Data Provider LAB BLOOD ORDERAB LES Final Result Performing Organization Address [facility] de Phone Number [facility] [address] [place] [phone] * Pap with NG,CT,Trich (12/15/2023 11:00 AM EDT) Trichomonas (NAAT) NOT DETECTED NOT DETECTED [facility] Comment:The analytical perfo rmance characteristics of thisassay have been determined by [employer]. Themodifications have not been cleared or approved bythe FDA. This assay has been validated pursuant to theCLIA regulations and is used for clinical purposes.For additional information, please refer tohttp://education.[employer]/faq/Trichomonastma(This link is being provided for information/educational purposes only.)THIS TEST WAS PERFORMED AT:[employer] [place] [id number] SOUTH MD CTNG Ref Lab NOT DETECTED NOT DETECTED [facility] NG Ref Lab NOT DETECTED NOT DETECTED [facility] ThinPrep vial Cervix uteri structure / Unknown 12/15/2023 11:00 AM EDT 12/15/2023 11:42 AM EDT Narrative [facility] - 12/18/2023 11:04 PM EDT Was previous PAP abnormal? NoCollection Date: [id number] by: TIMUR Quintanilla: Cervix Tereza LYNNEM LAB CYTOLOGY ORDERABLES F inal Result Performing Organization Address [facility] Co de Phone Number [facility] [address] [place] [address] [phone] * ThinPrep Imaging System Pap (12/14/2023 11:00 AM EDT) SOURCE: SEE NOTE [facility] Comment:Cervix Report Status: [facility] Clinical Information: SEE NOTE [facility] Comment:None given LMP: SEE NOTE [facility] Comment:NONE GIVEN Prev. PAP: SEE NOTE [facility] Comment:GN Prev. BX: SEE NOTE [facility] Comment:NONE GIVEN Statement Of Adequacy: SEE NOTE [facility] Comment:Satisfactory for clifton luation.Endocervical/transformation zone component absent. General Categorization: [facility] Interpretation/Result: SEE NOTE [facility] Comment:Cytology Results: Ne gative for intraepitheliallesion or malignancy. Cytology Comment SEE NOTE [facility] Comment:This Pap test has be en evaluated with computerassisted technology. Group Segment Consultant: SEE NOTE [facility] Comment:CMB, CT(ASCP) CT Scr eening Location: [employer] [address]lide preparation performed at: [employer], [address] [place] [id number] CLIA No. [id number] Review Group Segment Consultant: [facility] Pathologist [facility] PAP Infection [facility] See Note SEE [facility] Comment:EXPLANATORY NOTE:The Pap is a screening test for cervical cancer. It isnot a diagnostic test and is subject to false negativeand false positive results. It is most reliable when asatisfactory sample, regularly obtained, is submittedwith relevant clinical findings and history, and whenthe Pap result is evaluated along with historic andcurrent clinical information.THIS TEST WAS PERFORMED AT:[facility] [address] [phone] MERATI,MD 12/14/2023 11:0 0 AM EDT 12/15/2023 11:40 AM EDT [facility] - 12/20/2023 12:03 PM EDT SEE EMR FOR SCANNED REPORTSCREENINGCERVICALINITIAL Tereza Bowen CNM LAB PATHOLOGY ORDERABLES Final Result [facility] [address] [place] [phone] from Last 3 Months or Most Recently Relevant to Health Maintenance [facility] [place] [facility] Care Teams Glove Tagger Relationship Specialty Start Date End Date Karla Lincoln MD [address] [place] [phone] PCP - General Internal Medicine 07/04/24
== END 2025-04-01 12:20 | disposition home or self-care (01) ==
LOC: HO.HBST 11:25
PROVIDERS: PCP Internal Medicine; Visit Provider Counselor Mental Health
DX: F43.20 Adjustment disorder, unspecified (principal); Z98.84 Bariatric surgery status
CPT/HCPCS: 90834

== ENCOUNTER 2025-06-06 08:02 | Outpatient (REF) | payer MEDICAID, SELFPAY ==
--- NOTE | ~2025-06-06 | US_ITS ---
EXAMINATION: US ABDOMEN LIMITED WITH LIVER ELASTOGRAPHY HISTORY: LIVER DISEASE TECHNIQUE: Real-time grayscale ultrasound imaging of the right upper quadrant was performed and images were reviewed. COMPARISON: Comparison is made with the prior examination dated 11/11/2024. FINDINGS: Liver: The right lobe of the liver measures 12.8 cm in size. The left lobe of the liver measures 7.7 cm in size. The liver demonstrates normal homogeneous echotexture. There is a calcification in the right lobe. No focal mass or intrahepatic biliary ductal dilatation is identified. There is normal hepatopedal flow in the portal vein. Ultrasound elastography of the liver was performed with 10 separate measurements of the liver parenchyma with the patient in the supine position. Measurements were obtained approximately 2 cm below Garth's capsule and perpendicular to the capsule. The median shear wave velocity is 1.95 m/s (previously 1.75 m/s). The interquartile range/median (IQR/median) is 0.05. Gallbladder and biliary tree: The gallbladder is unremarkable, without evidence of calculi, wall thickening, or pericholecystic fluid. There is no sonographic Edwards sign. The common bile duct is normal in caliber measuring 2 mm in diameter. Right Kidney: The right kidney measures 10.9 cm in length. The right kidney is unremarkable, without evidence of masses, hydronephrosis, or calculi. Pancreas: The pancreas is obscured by bowel gas. Abdominal aorta and inferior vena cava: The visualized portions of the abdominal aorta and inferior vena cava are normal in caliber. There is no free fluid in the right upper quadrant. US/US abdomen canas w elastography IMPRESSION: The pancreas is obscured by bowel gas. Otherwise unremarkable right upper quadrant ultrasound. The median shear wave velocity in the liver is 1.95 m/s, corresponding to a median liver stiffness of 11.80 kPa. The IQR/median value is 0.05. This is indicative of a quality data set. Findings are indicative of a high elastography value suggestive of compensated advanced chronic liver disease. REFERENCE: Society of Radiologists in Ultrasound Liver Stiffness Thresholds (2019): LIVER STIFFNESS THRESHOLDS: *Shear wave velocity less than 1.3 m/s (Liver Stiffness equal or less than 5 kPa): High probability of being normal. *Shear wave velocity less than 1.7 m/s (Liver Stiffness less than 9 kPa): In the absence of other known clinical signs, rules out compensated advanced chronic liver disease. *Shear wave velocity between 1.7-2.1 m/s (Liver Stiffness 9-13 kPa): Suggestive of compensated advanced chronic liver disease but need further test for confirmation. *Shear wave velocity between 2.1-2.4 m/s (Liver Stiffness 13-17 kPa): Rules in compensated advanced chronic liver disease. *Shear wave velocity greater than 2.4 m/s (Liver Stiffness over 17 kPa): Suggestive of clinically significant portal hypertension. QUALITY OF DATA SET: *IQR/Median value equal or less than 0.15 implies a quality data set. *IQR/Median value over 0.15 implies a poor quality data set. SIGNIFICANT CHANGE FROM PRIOR EXAM: Significant change if liver stiffness measurement is 10% or greater from prior exam. OTHER CONSIDERATIONS: The stage of liver fibrosis may be overestimated in the setting of acute hepatitis, liver inflammation, elevated liver function tests, hepatic vascular congestion, obstructive cholestasis, non-fasting state, and infiltrative diseases such as amyloidosis and lymphoma. In some patients with NAFLD, the liver stiffness thresholds for compensated advanced chronic liver disease may be lower. In causes other than viral hepatitis and NAFLD, liver stiffness thresholds are not well established. Electronically signed by: Juan A Mckeon MD 06/06/2025 08:43 AM [facility]
--- OUTSIDE RECORDS SUMMARY | 2025-06-06 08:07 | XMS_ITS | Encounter Summary ---
Author Organization [employer] Address [address] 7t [place] [address] Care Team Providers Care Video Network Engineer Name Role Phone Karla Lincoln MD Primary Care Provide r Reason for Visit * Reason Onset Date Comments Med Refill 10/02/2024 Encounter Details Date Type Department Care Team ([facility] st Contact Info) Description 10/02/2024 Refill [facility] [address] [place] [address] Tereza Bowen, [facility] [address] [place] [address] Social History Tobacco Use Types Packs/Day Years [...] Care Team (Late st Contact Info) Description 06/27/2025 11:00 AM EST Office Visit [facility] [address] [place] [address] Karla Lincoln MD [address] [place] [address] documented as of this encounter Visit Diagnoses Not on filedocumented in this encounter Additional Health Concerns Assessment Noted Time PHQ-9 Depression Total Score: 6 07/04/19 10:15 AM EST documented as of this encounter Care Teams Video Network Engineer Relationship Specialty Start Date End Date Karla Lincoln MD [address] [place] [address] PCP - General Internal Medicine 07/04/24 documented as of this encounter
--- OUTSIDE RECORDS SUMMARY | 2025-06-06 08:07 | XMS_ITS | Clinical Summary ---
Author Organization [employer] Address [address] [facility] 7t [place] [address] Care Team Providers Care Cigarette Inspector Name Role Phone Karla Lincoln MD Primary [...] Encounters Date Type Department Care Team Description 04/14/2025 Telephone [facility] [address] [place] [address] Karla Lincoln MD 04/11/2025 Results Follow-Up [facility] [address] [place] [address] Karla Lincoln MD hCG, Total, Quantitative, Chlamydia/N. Gonorrhoeae, PCR, Urine, HIV-1/2 Antigen and Antibodies, Fourth Generation, with Reflexes, Additional followed-up results: 2 04/11/2025 Telephone [facility] [address] [place] [phone] Karla Lincoln MD roger recall 03/26/2025 10:00 AM EDT Office Visit [address] [address] Karla Lincoln MD Mild intermittent asthma, unspecified whether complicated; Class 3 severe obesity due to excess calories with serious comorbidity and body mass index (BMI) of 40.0 to 44.9 in adult (HCC); Metabolic dysfunction-associate d steatotic liver disease (MASLD); Screening examination for STI; Missed period; Encounter for immunization 03/26/2025 Travel 03/25/[address] [address] Karla Lincoln MD CHART PREP 03/25/2025 Travel 03/18/2025 Patient Outreach [address] [address] Karla Lincoln MD Pre-visit Planning (SDOH screening completed on 07/04/2024) from Last 3 Months Immunizations Immunization Administration [...] 03/26/2025 10:07 AM EDT Plan of Treatment Upcoming Encounters Date Type Department Care Team (Late st Contact Info) Description 06/27/2025 11:00 AM EST Office Visit [facility] [address] [place] [address] Karla Lincoln MD [address] [place] [address] Health Maintenance Due Date Last Done Comments Family Planning (PISQ) 2016 HPV Vaccines (1 - 3-dose series) 2016 [...] Years (1 of 2 - PCV) 2020 COVID-19 Vaccine (1 - 2024-2 6 season) 2025 Alcohol/Substance Use Screening 07/04/2025 07/04/2024 Depression Screening 07/04/2025 07/04/2024, 07/04/2024 SDOH Screening 07/04/2025 07/04/2024 Chlamydia and Gonorrhea Screening 03/26/2026 03/26/2025, 12/15/2023 Disability Screening 03/26/2026 03/26/2025 Tobacco Screening 03/26/2026 [...] 11:50 AM EDT Screening examination for STI CHLAMYDIA/TRICHOMON /NEISSERIA GONORRHOEAE, PCR, URINE Routine 03/26/2025 11:50 AM EDT Screening examination for STI HCG, TOTAL, QN Routine 03/26/2025 11:50 AM EDT Missed period LIPID PANEL, STANDARD Routine 11/23/2024 9:03 AM EDT THINPREP IMAGING SYSTEM PAP Routine 12/14/2023 11:00 AM EDT from Last 3 Months or Most Recently Relevant to Health Maintenance Results * Chlamydia/N. Gonorrhoeae, PCR, Urine (03/26/2025 11:50 AM EDT) CT PCR, Urine NOT DETECTED Not Detect. [facility] Comment:A not detected test result [...] NG PCR, Urine NOT DETECTED Not Detect. [facility] Comment:A not detected test result [...] 11:50 AM EDT 03/26/2025 1:15 PM EDT us Karla Mckinney MD LAB URINE ORDERABLES Final Result Performing Organization Address [facility] Co de Phone Number [facility] [address] [place] [phone] * Hepatitis A,B,C Profile (03/26/2025 11:50 AM EDT) Hepatitis A IgM Nonreactive Nonreactive [facility] [...] BLOOD ORDERABLES Final Result Performing Organization Address City/[facility] Co de Phone Number [facility] [address] [place] [address] [phone] * RPR (Monitor) with Reflex to??Titer (03/26/2025 11:50 AM EDT) RPR (Monitor) w/Refl Titer NON-REACTI VE NON-REACT [facility] Comment:THIS TEST WAS PERFOR MED AT:[facility] [place] [phone] SOUTH MD Rapid Plasma Reagin Ab Titer TNP [facility] Blood Venous blood specimen / Unknown 03/26/2025 11:50 AM EDT 03/26/2025 1:45 PM EDT Karla Mckinney MD LAB BLOOD ORDERABLES Final Result Performing Organization Address [facility] de Phone Number [facility] [address] [place] [phone] * HIV-1/2 Antigen and Antibodies, Fourth Generation, with Reflexes (03/26/2025 11:50 AM EDT) HIV AB/AG Nonreactive Nonreactive [facility] Comment:HIV-1 p24 Ag and/or HIV-1/HIV-2 Ab not detected.A test result that is nonreactive does not exclude thepossibility of exposure to or infection with HIV-1 and/orHIV-2. Nonreactive results in this assay for individualswith prior exposure to HIV-1 and/or HIV-2 may be due toantigen and antibody levels that are below the limit ofdetection of this assay.[employer] HIV Ag/Ab Combo assay result andsupplemental assay results should be interpreted inconjunction with the patient's clinical presentation,history and other laboratory results. If the results areinconsistent with clinical evidence, additional testing issuggested to confirm the result. Blood Venous blood specimen / Unknown 03/26/2025 11:50 AM EDT 03/26/2025 1:17 PM EDT Karla Mckinney MD LAB BLOOD ORDERABLES Final Result Performing Organization Address [facility] Co de Phone Number [facility] [address] [place] [phone] * hCG, Total, Quantitative (03/26/2025 11:50 AM EDT) HCG Quantitative <2 mIU/mL [facility] Comment:Weeks post LMP Appro ximate hCG(Last Menstrual Period) Range (mIU/ml)3 - 4 weeks 9 - 1304 - 5 weeks 75 - 2,6005 - 6 weeks 850 - 20,8006 - 7 weeks 4000 - 100,2007 - 12 weeks 11,500 - 289,58008 - 16 weeks 18,300 - 137,21828 - 29 weeks (2nd trimester) 1,400 - 53,44783 - 41 weeks (3rd trimester) 940 - [...] BLOOD ORDERABLES Final Result Performing Organization Address [facility] Co de Phone Number [facility] [address] [place] [phone] * (ABNORMAL) Lipid Panel, Standard (11/23/2024 9:03 AM EDT) Triglycerides 159(H) <150 mg/dL [facility] Comment:Desirable Triglyceri de: less than 150 mg/dLBorderline High Triglyceride 150-199 mg/dLHigh Triglyceride: 200-499 mg/dLVery High Triglyceride: greater than or equal to 5OO mg/dL Cholesterol 142 <200 mg/dL [facility] Comment:Desirable Cholestero l: less than 200 mg/dLBorderline High Cholesterol: 200-239 mg/dLHigh Cholesterol: greater than 239 mg/dL LDL Cholesterol Calculated 83 <100 mg/dL [facility] Comment:Desirable LDL: less than 100 mg/dLNear Optimal/Above Optimal LDL: 110- 129 mg/dLBorderline High LDL: 130-159 mg/dLHigh LDL: 160-189 mg/dLVery High LDL: greater than or equal to 190 mg/dL HDL Cholesterol 28(L) >40 mg/dL [facility] Comment:Desirable HDL: great er than 40 mg/dL Note: This HDL assay may give artificially low results in patients with liver disease. 11/23/2024 9:03 AM EDT 11/23/2024 9:03 AM EDT us Generic External Data Provider LAB BLOOD ORDERAB LES Final Result [facility] [address] [place] [phone] * ThinPrep Imaging System Pap (12/14/2023 11:00 AM EDT) SOURCE: SEE NOTE [facility] Comment:Cervix Report Status: TNP [facility] Clinical Information: SEE NOTE [facility] Comment:None given LMP: SEE NOTE [facility] Comment:NONE GIVEN Prev. PAP: SEE NOTE [facility] Comment:GN Prev. BX: SEE NOTE [facility] Comment:NONE GIVEN Statement Of Adequacy: SEE NOTE [facility] Comment:Satisfactory for clifton luation.Endocervical/transformation zone component absent. General Categorization: [facility] Interpretation/Result: SEE NOTE [facility] Comment:Cytology Results: Ne gative for intraepitheliallesion or malignancy. Cytology Comment SEE NOTE [facility] Comment:This Pap test has be en evaluated with computerassisted technology. Supervisor Home Economics: SEE NOTE [facility] Comment:CMB, CT(ASCP) CT Scr eening Location: [facility] [address] [address]Gamab preparation performed at: [facility], [address] [place] [id number] CLIA No. [id number] Review Supervisor Home Economics: [facility] Pathologist [facility] PAP Infection [facility] See Note SEE NOTE [facility] Comment:EXPLANATORY NOTE:The Pap is a screening test for cervical cancer. It isnot a diagnostic test and is subject to false negativeand false positive results. It is most reliable when asatisfactory sample, regularly obtained, is submittedwith relevant clinical findings and history, and whenthe Pap result is evaluated along with historic andcurrent clinical information.THIS TEST WAS PERFORMED AT:[facility] [address] [id number] MERATI,MD 12/14/2023 11:0 0 AM EDT 12/15/2023 11:40 AM EDT Narrative [facility] - 12/20/2023 12:03 PM EDT SEE EMR FOR SCANNED REPORTSCREENINGCERVICALINITIAL Tereza Bowen CNM LAB PATHOLOGY ORDERABLES Final Result Performing Organization Address City/State/[facility] Co de Phone Number [facility] [address] [place] [address] [phone] from Last 3 Months or Most Recently Relevant to Health Maintenance [facility] C3 Care Teams Cigarette Inspector Relationship Specialty Start Date End Date Karla Lincoln MD [address] [place] [phone] PCP - General Internal Medicine 07/04/24
--- OUTSIDE RECORDS SUMMARY | 2025-06-06 08:07 | XMS_ITS | Encounter Summary ---
Author Organization [employer] Address [address] [place] [address] Care Team Providers Care Dispatcher Tugboat Name Role Phone Karla Lincoln MD Primary Care Provide r Encounter Details Date Type Department Care Team ([facility] st Contact Info) Description 04/11/2025 Results Follow-Up [facility] [address] [place] [address] Karla Lincoln MD [address] [place] [address] hCG, Total, Quantitative, Chlamydia/N. Gonorrhoeae, PCR, Urine, HIV-1/2 Antigen and Antibodies, Fourth Generation, with Reflexes, Additional followed-up results: 2 Social History Tobacco Use Types Packs/Day Years [...] Description 06/27/2025 11:00 AM EST Office Visit [facility] [address] [place] [address] Karla Lincoln MD [address] [place] [address] documented as of this encounter Visit Diagnoses Not on filedocumented in this encounter Additional Health Concerns Assessment Noted Time PHQ-9 Depression Total Score: 6 07/04/19 10:15 AM EST documented as of this encounter Care Teams Dispatcher Tugboat Relationship Specialty Start Date End Date Karla Lincoln MD [address] [place], [place] [phone] PCP - General Internal Medicine 07/04/24 documented as of this encounter
--- OUTSIDE RECORDS SUMMARY | 2025-06-06 08:07 | XMS_ITS | Encounter Summary ---
Author Organization [facility] Address [address] [facility] 7 [place] [address] Care Team Providers Care Lead Data Architect Name Role Phone Karla Lincoln MD Primary Care Provide r Encounter Details Date Type Department Care Team (Late Contact Info) Description 01/08/[address] [facility] [address] [place] [phone] Tereza Bowen CNM [address] [place] [phone] Social History Tobacco Use Types Packs/Day Years [...] Department Care Team (Late Contact Info) Description 06/27/2025 11:00 AM EST Office Visit [facility] [address] [place] [phone] Karla Lincoln MD [address] [place] [phone] documented as of this encounter Visit Diagnoses Not on filedocumented in this encounter Care Teams Lead Data Architect Relationship Specialty Start Date End Date Karla Lincoln MD [address] [place] [phone] PCP - General Internal Medicine 07/04/24 documented as of this encounter
== END 2025-06-06 08:03 | disposition home or self-care (01) ==
LOC: HO.US 08:02
PROVIDERS: Visit Provider Internal Medicine
DX: K76.0 Fatty (change of) liver, not elsewhere classified (principal)
CPT/HCPCS: 76705; 76981

== ENCOUNTER → 2025-06-06 08:04 | Outpatient (BNV) | payer MEDICAID, SELFPAY | PROVIDERS: Visit Provider Radiology Diagnostic Radiology | DX: K76.9 Liver disease, unspecified (principal) | CPT/HCPCS: 76705 ==